=== PATIENT | female | born 1965 | race Caucasian/White ===

== ENCOUNTER → 2024-01-01 08:43 | Outpatient (BNVA) | payer MEDICARE, MEDICAID, SELFPAY | PROVIDERS: PCP Physician Assistant Medical; Visit Provider Surgery ==

== ENCOUNTER 2024-01-18 08:12 | Outpatient (AMB) | payer MEDICARE, MEDICAID, SELFPAY ==
--- NOTE | 2024-01-18 14:31 | MHC.OFFVISWM ---
VS Expanded 01/18/24 14:39 Height 5 ft 3.5 in Weight 218 lb BMI 38.0 Body Fat % 47.7 Body Fat Mass 103.8 Fat Free Mass 114 Visceral Fat Rating 14 Body Water % 37 Body Water Mass 80.6 Basal Metabolic Rate/Score 1,609 Intake Visit Reasons: [employer] BMI 38.0 Allergies acetaminophen [From Percocet] Adverse Reaction (Intermediate, Verified 01/18/24 14:31) Vomiting duloxetine [From Cymbalta] Adverse Reaction (Intermediate, Verified 01/18/24 14:31) Gastrointestinal Upset oxycodone [From Percocet] Adverse Reaction (Intermediate, Verified 01/18/24 14:31) Vomiting Medication List - Last Reconciled 01/18/24 by Mike Farfan MD albuterol sulfate 90 mcg/actuation (Ventolin HFA) 1 inh inhalation QID cholecalciferol (vitamin D3) 50 mcg PO DAILY HPI HPI [employer] BMI 38.0: Details: Start time: 2.26pm, End time: 2.58pm ?I spent 27 minutes speaking with the patient on the phone plus an additional 5 minutes reviewing and updating records for a total of 32 minutes HPI Comments Details: Previous weight loss efforts: [employer], Brett Huang Wakes up: 6am, Sleeps: 10pm Breakfast: skips Lunch: 11am (salad with chicken) Dinner: 6pm (chicken, rice, vegetables) Snacks: 8pm (snack) Exercise: Has stationary bike Fluids: Coffee: (1 cup/day with oat milk), tea: none, soda: none, juice: none, ETOH: none PFSH Medical History (Updated 01/18/24 @ 14:49 by Mike Farfan MD) Anxiety DJD (degenerative joint disease) Asthma Sleep apnea treated with continuous positive airway pressure (CPAP) Surgical History (Updated 01/01/24 @ 10:01 by Blanche Oneill CMA) Hx of umbilical hernia repair Hx of rotator cuff surgery Hx of colonoscopy Hx of oral surgery Family History (Updated 01/01/24 @ 10:02 by Blanche Oneill CMA) Mother Breast CA Father FH: prostate cancer Social History (Updated 01/01/24 @ 10:01 by Blanche Oneill CMA) Alcohol intake: never Patient Tobacco Use Status: Never used Tobacco Telehealth Telehealth Telehealth Platform: Telephone Location of provider rendering services: practice address Location of patient: address on file Patient Identification confirmed using: Name, : Yes Telehealth method: voice only Patient verbally consented to treatment: Yes Patient verbally consented to billing insurance company: Yes Patient informed of any privacy concerns related to visit: Yes Minutes spent on Phone/Video with Pt.: 32 Assessment & Plan Assessment & Plan (1) Obesity: Code(s): E66.9 - Obesity, unspecified Category: Medical Qualifiers: Obesity type: due to excess calories Obesity classification: adult class 2 (BMI 35 - 39.9) Serious obesity comorbidity presence: with serious comorbidity Body mass index: BMI 38.0-38.9 Qualified Code(s): E66.01 - Morbid (severe) obesity due to excess calories; Z68.38 - Body mass index [BMI] 38.0-38.9, adult Plan: 1.? Plan for lap sleeve gastrectomy. If diaphragmatic or ventral hernias are present at time of surgery, these will be repaired laparoscopically as well. Risks and complications were discussed in detail including possible conversion to an open procedure, anastomotic leak, bleeding requiring transfusion, small bowel obstruction, , DVT and pulmonary embolism, cardiac, or pulmonary complications, as intermediate designer complications such as anastomotic ulcer, insufficient weight loss and vitamin deficiencies. I emphasized the importance of close follow-up, adherence to instructions and good communication. 2. You will receive a link of our software héctor to generate an individualized nutritional and exercise plan specific for you. Please send me a screenshot of the plans you will generate Meal to include lean meat (beef, fish, pork, turkey, chicken), or french yogurt, or egg whites, or beans with a salad with olive oil and fruits (berries, pears, apples, kiwi). Avoid salt, breads, potatoes, rice, pasta, desserts. ?3. If you choose shakes, each shake would be drunk slowly, like coffee in a period of 2 hours. ?4. If you choose bars, cut each bar in 4 pieces and eat each piece in 30min ?to make each bar last 2 hours. ?5. I emphasized the importance of measuring accurately the food portion and measure it when serving the food in plate ?6. The meal portions include a specific number of forks of meat and salad. You always eat the meat portion but you can replace up to half of salad/vegetables portion with rice, potatoes or pasta, or a fruit ?if you like. The less you do it the better weight loss will be. ?7. One full-size fork is what it can be scooped on the fork without falling aside and not what can be bit with the fork. Use regular forks like those you find in a typical restaurant. ?8.? Please send me weight measurements as soon as possible and then once a week. Always include your diet and exercise plan. 9. The best choice would be to purchase a stationary bike, elliptical or treadmill at home that can track calories. Let me know if you do so I can give you an exercise plan. ?10.?It is important of avoiding and for at least 18 months postoperatively and has been discussed at the infosession. ?11. Goal is to lose at least 1.5-2lbs per week ?12. Goal to lose 10% of your weight before surgery, which is about 22lbs. Ultimate weight goal: 196lbs before surgery 13. Please follow the diet plan exactly without any change. If you don't like something about the plan or you feel hungry you need to communicate with me so I can help you revise the plan. You should not change the plan yourself. 14. To be scheduled for EGD to assess the anatomy of the stomach. The possibility of biopsies was discussed. Patient needs to avoid use of NSAIDs and aspirin for 1 week prior to EGD. Risks of perforation and? bleeding was discussed with the patient. This will be an outpatient procedure with IV sedation. Orders: Orders Complete Blood Count Auto Diff Today E66.9 - Obesity, unspecified, G47.30 - Sleep apnea, unspecified, J45.909 - Unspecified asthma, uncomplicated, Z68.38 - Body mass index [BMI] 38.0-38.9, adult Comprehensive Met. Panel Today E66.9 - Obesity, unspecified, G47.30 - Sleep apnea, unspecified, J45.909 - Unspecified asthma, uncomplicated, Z68.38 - Body mass index [BMI] 38.0-38.9, adult C Reactive Protein Today E66.9 - Obesity, unspecified, G47.30 - Sleep apnea, unspecified, J45.909 - Unspecified asthma, uncomplicated, Z68.38 - Body mass index [BMI] 38.0-38.9, adult Vitamin B1 Today E66.9 - Obesity, unspecified, G47.30 - Sleep apnea, unspecified, J45.909 - Unspecified asthma, uncomplicated, Z68.38 - Body mass index [BMI] 38.0-38.9, adult Vitamin A Today E66.9 - Obesity, unspecified, G47.30 - Sleep apnea, unspecified, J45.909 - Unspecified asthma, uncomplicated, Z68.38 - Body mass index [BMI] 38.0-38.9, adult Ferritin Today E66.9 - Obesity, unspecified, G47.30 - Sleep apnea, unspecified, J45.909 - Unspecified asthma, uncomplicated, Z68.38 - Body mass index [BMI] 38.0-38.9, adult Vitamin D 25-OH Total Today E66.9 - Obesity, unspecified, G47.30 - Sleep apnea, unspecified, J45.909 - Unspecified asthma, uncomplicated, Z68.38 - Body mass index [BMI] 38.0-38.9, adult US abdomen comp w elastography Today E66.9 - Obesity, unspecified, G47.30 - Sleep apnea, unspecified, J45.909 - Unspecified asthma, uncomplicated, Z68.38 - Body mass index [BMI] 38.0-38.9, adult XR chest 2V Today E66.9 - Obesity, unspecified, G47.30 - Sleep apnea, unspecified, J45.909 - Unspecified asthma, uncomplicated, Z68.38 - Body mass index [BMI] 38.0-38.9, adult ECG 12 lead EKG Today E66.9 - Obesity, unspecified, G47.30 - Sleep apnea, unspecified, J45.909 - Unspecified asthma, uncomplicated, Z68.38 - Body mass index [BMI] 38.0-38.9, adult FL upper GI w air Today E66.9 - Obesity, unspecified, G47.30 - Sleep apnea, unspecified, J45.909 - Unspecified asthma, uncomplicated, Z68.38 - Body mass index [BMI] 38.0-38.9, adult Insulin Today E66.9 - Obesity, unspecified, G47.30 - Sleep apnea, unspecified, J45.909 - Unspecified asthma, uncomplicated, Z68.38 - Body mass index [BMI] 38.0-38.9, adult Hemoglobin A1c Today E66.9 - Obesity, unspecified, G47.30 - Sleep apnea, unspecified, J45.909 - Unspecified asthma, uncomplicated, Z68.38 - Body mass index [BMI] 38.0-38.9, adult H Pylori Breath Test Today E66.9 - Obesity, unspecified, G47.30 - Sleep apnea, unspecified, J45.909 - Unspecified asthma, uncomplicated, Z68.38 - Body mass index [BMI] 38.0-38.9, adult Lipid Panel Today E66.9 - Obesity, unspecified, G47.30 - Sleep apnea, unspecified, J45.909 - Unspecified asthma, uncomplicated, Z68.38 - Body mass index [BMI] 38.0-38.9, adult IRON PROFILE Today E66.9 - Obesity, unspecified, G47.30 - Sleep apnea, unspecified, J45.909 - Unspecified asthma, uncomplicated, Z68.38 - Body mass index [BMI] 38.0-38.9, adult Vitamin B12 and Folate Today E66.9 - Obesity, unspecified, G47.30 - Sleep apnea, unspecified, J45.909 - Unspecified asthma, uncomplicated, Z68.38 - Body mass index [BMI] 38.0-38.9, adult Zinc Today E66.9 - Obesity, unspecified, G47.30 - Sleep apnea, unspecified, J45.909 - Unspecified asthma, uncomplicated, Z68.38 - Body mass index [BMI] 38.0-38.9, adult TSH reflex Free T4 Today E66.9 - Obesity, unspecified, G47.30 - Sleep apnea, unspecified, J45.909 - Unspecified asthma, uncomplicated, Z68.38 - Body mass index [BMI] 38.0-38.9, adult Referrals Nutrition/Dietitian Referral E66.9 - Obesity, unspecified, G47.30 - Sleep apnea, unspecified, J45.909 - Unspecified asthma, uncomplicated, Z68.38 - Body mass index [BMI] 38.0-38.9, adult Behavioral Health Referral E66.9 - Obesity, unspecified, G47.30 - Sleep apnea, unspecified, J45.909 - Unspecified asthma, uncomplicated, Z68.38 - Body mass index [BMI] 38.0-38.9, adult
[2024-01-18 14:39] VITALS: BMI 38.0
== END 2024-01-18 14:58 | disposition home or self-care (01) ==
LOC: HO.HBS 08:12
PROVIDERS: PCP Physician Assistant Medical; Visit Provider Surgery
DX: E66.01 Morbid (severe) obesity due to excess calories (principal); Z68.38 Body mass index [BMI] 38.0-38.9, adult
CPT/HCPCS: 99443

== ENCOUNTER → 2024-01-18 08:12 | Outpatient (BNVA) | payer MEDICARE, MEDICAID, SELFPAY | PROVIDERS: PCP Physician Assistant Medical; Visit Provider Surgery ==

== ENCOUNTER 2024-01-19 07:48 | Outpatient (REF) | payer MEDICARE, MEDICAID, SELFPAY ==
--- NOTE | ~2024-01-19 | XR_ITS ---
EXAMINATION: XR CHEST CLINICAL INFORMATION: Obesity, unspecified COMPARISON: None available. TECHNIQUE: 2 views of the chest were obtained. FINDINGS: The lungs are well expanded. No focal consolidation, interstitial pulmonary edema or pneumothorax. Heart size is normal. Calcification of the thoracic aorta is indicative of atherosclerotic disease. No pleural effusion. Mild multilevel degenerative changes of the thoracic spine. There is a small air-filled hiatal hernia. XR/XR chest 2V IMPRESSION: No acute abnormality. Small hiatal hernia.
--- NOTE | 2024-01-19 08:02 | ECG_ITS ---
Test Reason : e66.01 Blood Pressure : / mmHG Vent. Rate : 073 BPM Atrial Rate : 073 BPM P-R Int : 122 ms QRS Dur : 070 ms QT Int : 390 ms P-R-T Axes : 040 013 029 degrees QTc Int : 429 ms Normal sinus rhythm Low voltage QRS Borderline ECG No previous ECGs available Referred By: Mike Farfan Electronically Signed By:NAILA MELCHOR MD
[2024-01-19 08:09] LABS: MANUAL DIFF FLAG NO
[2024-01-19 09:04] LABS: Basophils Absolute Auto 0.1 X10*3/uL (0.0-0.2); Basophils Percent Auto 0.6 % (0-2); Eosinophils Absolute Auto 0.1 X10*3/uL (0.0-0.4); Eosinophils Percent Auto 0.7 % (0-4); Hemoglobin 14.3 g/dl (12.0-16.0); Imm Gran Abs Auto 0.03 X10*3/uL (0.00-0.03); Imm Gran Pct Auto 0.4 % (0.0-0.4); Lymphocytes Percent Auto 35.9 % (20-40); Mean Corpuscular HGB Conc 32.5 g/dl (31.0-35.0); Mean Corpuscular Hemoglobin 28.9 pg (27.0-33.0); Mean Corpuscular Volume 89.1 fL (80.0-98.0); Mean Platelet Volume 10.5 fL (9.4-12.3); Monocytes Absolute Auto 0.4 X10*3/uL (0.1-1.2); Neutrophils Absolute Auto 4.9 x10*3/uL (2.0-8.3); Neutrophils Percent Auto 57.4 % (45-73); Platelet Count 301 X10*3/uL (160-400); Red Blood Count 4.94 X10*6/uL (4.20-5.50); White Blood Count 8.5 X10*3/uL (4.8-10.8)
[2024-01-19 09:05] LABS: Estimated Average Glucose 111 mg/dL; Hemoglobin A1c % 5.5 % (<6.0)
[2024-01-19 09:46] LABS: Alanine Aminotransferase 14 U/L (0-31); Albumin Level 4.3 g/dL (3.5-5.0); Alkaline Phosphatase 67 U/L (39-117); Anion Gap 16 (12-20); Aspartate Amino Transferase 15 U/L (5-31); Bilirubin Total 0.4 mg/dL (0.0-1.0); Blood Urea Nitrogen 16 mg/dL (9-16); C Reactive Protein 1.34 mg/dL (< or = 0.50); Calcium 9.9 mg/dL (8.4-10.2); Carbon Dioxide 27 mmol/L (22-29); Chloride 105 mmol/L (96-108); Cholesterol 241 mg/dL (<200); Estimated Glomerular Filt Rate > 60; Glucose Random 92 mg/dL (60-115); HDL Cholesterol 54 mg/dL (>40); Iron 72 mcg/dL (30-160); LDL Cholesterol Calculated 166 mg/dL (<100); Percent Iron Saturation 25 % (15-50); Potassium 4.1 mmol/L (3.3-5.1); Sodium 144 mmol/L (135-145); Total Iron Binding Capacity 284 mcg/dL (228-428); Total Protein 7.5 g/dL (6.5-8.0); Triglycerides 109 mg/dL (<150); Unsaturated Iron Binding 212 ug/dL
[2024-01-19 10:09] LABS: Ferritin 146 ng/mL (10-250); TSH reflex Free T4 2.46 uIU/mL (0.32-4.0); Vitamin D 25-OH Total 39.2 ng/mL (>30)
[2024-01-19 10:53] LABS: Insulin 10 uU/mL (2-29)
[2024-01-19 10:58] LABS: Folate 5.4 ng/mL (> or = 4.0); Vitamin B12 329 pg/mL (200-900)
[2024-01-23 01:04] LABS: Zinc 76 mcg/dL (60-130)
[2024-01-24 05:28] LABS: Vitamin A 34 mcg/dL (38-98)
[2024-01-26 06:25] LABS: Vitamin B1 29 nmol/L (8-30)
== END 2024-01-19 07:49 | disposition home or self-care (01) ==
LOC: HO.XRAY 07:48
PROVIDERS: PCP Surgery; Visit Provider Surgery
DX: E66.9 Obesity, unspecified (principal); Z68.38 Body mass index [BMI] 38.0-38.9, adult; G47.30 Sleep apnea, unspecified; J45.909 Unspecified asthma, uncomplicated
CPT/HCPCS: 36415; 71046; 80053; 80061; 82306; 82607; 82728; 82746; 83036; 83525; 83540; 84425; 84443; 84590; 84630; 85025; 86140; 93005

== ENCOUNTER → 2024-01-19 08:02 | Outpatient (BNV) | payer MEDICARE, MEDICAID, SELFPAY | PROVIDERS: PCP Surgery; Visit Provider Internal Medicine Cardiovascular Disease | DX: E66.01 Morbid (severe) obesity due to excess calories (principal) | CPT/HCPCS: 93010 ==

== ENCOUNTER 2024-02-07 07:50 | Outpatient (REF) | payer MEDICARE, MEDICAID, SELFPAY ==
--- NOTE | ~2024-02-07 | US_ITS ---
EXAMINATION: US COMPLETE ABDOMEN WITH LIVER ELASTOGRAPHY CLINICAL INFORMATION: COMPARISON: None available. TECHNIQUE: Real-time imaging of the abdominal viscera. Noninvasive ultrasound liver fibrosis assessment is performed using [employer] ElastPQ point quantification shear wave elastography (2D-SWE) with a C5-2 MHz transducer. Multiple elastography samples are obtained. FINDINGS: PANCREAS: Normal. The visualized pancreatic head and body are normal in appearance. The remainder of the pancreas is obscured from visualization by the overlying bowel gas. ABDOMINAL AORTA: The proximal, middle, and distal aortic segments are normal in caliber. INFERIOR VENA CAVA: Visualized portions are normal. LIVER: The liver demonstrates normal size, contour and increased echogenicity. No focal lesion or intrahepatic biliary duct dilatation. The right lobe measures 15.1 cm in length. The left lobe measures 9.6 cm in length. Portal flow is towards the liver (hepatopetal). Shear wave liver elastography median stiffness is 1.3 m/s (reference: normal median stiffness is 1.3 m/s or less). IQR/median stiffness to assess sampling precision is 0.14 (reference: good quality data set is IQR/median stiffness of 0.15 or less). GALLBLADDER: Normal. The gallbladder is physiologically distended without evidence of stones, sludge, polyps, wall thickening or pericholecystic fluid. COMMON BILE DUCT: Normal in caliber measuring 0.5 cm in diameter. RIGHT KIDNEY: Normal. No hydronephrosis. No renal calculi or focal parenchymal lesions. The kidney measures 10.4 cm in maximum dimension. LEFT KIDNEY: Normal. No hydronephrosis. No renal calculi or focal parenchymal lesions. The kidney measures 12.4 cm in maximum dimension. SPLEEN: Normal. The spleen measures 10.6 cm in maximum dimension. FREE FLUID: None. US/US abdomen comp w elastography IMPRESSION: 1. There is generalized increase in hepatic echotexture, consistent with fatty infiltration or hepatocellular disease. Please correlate clinically. No focal hepatic mass or intrahepatic biliary dilatation is seen. 2. Liver elastography: In the absence of other known clinical signs, measurements rule out compensated advanced chronic liver disease. If there are known clinical signs, further testing may be needed for confirmation. REFERENCE: Society of Radiologists in Ultrasound Liver Stiffness Thresholds (2020): LIVER STIFFNESS THRESHOLDS: *Liver Stiffness equal or less than 1.3 m/s: High probability of being normal. *Liver Stiffness less than 1.7 m/s: In the absence of other known clinical signs, rules out compensated advanced chronic liver disease. *Liver Stiffness 1.7-2.1 m/s: Suggestive of compensated advanced chronic liver disease but need further test for confirmation. *Liver Stiffness over 2.1 m/s: Rules in compensated advanced chronic liver disease. *Liver Stiffness over 2.4 m/s: Suggestive of clinically significant portal hypertension. QUALITY OF DATA SET: *IQR/Median value equal or less than 0.15 implies a quality data set. *IQR/Median value over 0.15 implies a poor quality data set. SIGNIFICANT CHANGE FROM PRIOR EXAM: Significant change if liver stiffness measurement is 10% or greater from prior exam. OTHER CONSIDERATIONS: The stage of liver fibrosis may be overestimated in the setting of acute hepatitis, liver inflammation, elevated liver function tests, hepatic vascular congestion, obstructive cholestasis, non-fasting state, and infiltrative diseases such as amyloidosis and lymphoma. In some patients with NAFLD, the liver stiffness thresholds for compensated advanced chronic liver disease may be lower. In causes other than viral hepatitis and NAFLD, liver stiffness thresholds are not well established.
== END 2024-02-07 07:51 | disposition home or self-care (01) ==
LOC: HO.US 07:50
PROVIDERS: Visit Provider Surgery
DX: E66.9 Obesity, unspecified (principal); Z68.38 Body mass index [BMI] 38.0-38.9, adult; J45.909 Unspecified asthma, uncomplicated; G47.30 Sleep apnea, unspecified
CPT/HCPCS: 76700; 76981

== ENCOUNTER 2024-02-13 09:38 | Outpatient (AMB) | payer MEDICARE, MEDICAID, SELFPAY ==
--- NOTE | 2024-02-13 09:32 | MHC.WMTHER ---
Intake Intake Visit Reasons: TV BH Intake Allergies acetaminophen [From Percocet] Adverse Reaction (Intermediate, Verified 01/18/24 14:31) Vomiting duloxetine [From Cymbalta] Adverse Reaction (Intermediate, Verified 01/18/24 14:31) Gastrointestinal Upset oxycodone [From Percocet] Adverse Reaction (Intermediate, Verified 01/18/24 14:31) Vomiting PFSH Medical History (Updated 01/26/24 @ 21:05 by Mike Farfan MD) Anxiety DJD (degenerative joint disease) Asthma Sleep apnea treated with continuous positive airway pressure (CPAP) Surgical History (Updated 01/01/24 @ 10:01 by Blanche Oneill CMA) Hx of umbilical hernia repair Hx of rotator cuff surgery Hx of colonoscopy Hx of oral surgery Family History (Updated 01/01/24 @ 10:02 by Blanche Oneill CMA) Mother Breast CA Father FH: prostate cancer Social History (Updated 01/01/24 @ 10:01 by Blanche Oneill CMA) Alcohol intake: never Patient Tobacco Use Status: Never used Tobacco Behavioral Health Assessment Weight Management Therapy Therapy Notes Details Patient is looking to have weight loss surgery to help improve her health and quality of life. She is worried about her sleep apnea and other health issues. 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 She reported having a therapist in the past however when she got on disability, her insurance changed and she lost her provider. Pt is currently in the process of getting back into therapy due to past trauma. No history of problems with drugs or alcohol, no history of previous inpatient psychiatric admissions. Presenting Concerns Referral Source provider Reason for referral weight loss surgery evaluation Precipitating Event obesity Living Situation Current Living Situation Own and Relative's/Guardian's Milli At risk of losing current housing? No Satisfied with current living situation? Yes Comments Pt lives with her disabled son who is 19 years old and her older sister who also has medical issues. Food/Weight/Diet Expectations of change weight loss and maintenance History/Relationship with food Pt stated that she would go all day with no food and then be starving and overeat or eat whatever she can. She stated that she would often go for sweets, also eats very fast which she learned to do as a child when trying to get away from her mother at the dinner table as quick as she could. Loves potatoes, pasta, and other carbs, fast food, [employer], burger Gavin, anything she had in the house. History/Relationship with weight Pt stated that she has been struggling with her weight for the past 30 years or so, since having children, was never able to get back down to her healthy weight. History/Relationship with dieting Brett T[facility]well in the past, lost 14lbs before coming to the program on her own. Binge Eating Do you frequently eat large amounts of food in short periods of time, not feeling physically hungry? No Do you feel out of control when you eat a large amount of food in a short period of time? No Do you eat large amounts of food rapidly and typically alone? Yes Night Eating Do you wake up at least once during the night to eat? No If you wake up in the night, do you find that it is necessary to eat something in order to fall back asleep? No Do you have little or no appetite in the morning and feel very hungry in the evening, often overeating between dinner and when you go to bed? Yes Social History Family history and relationship Pt has 5 adult children and is twice . Her youngest son lives with her due to disability. She stopped working about two years ago. She has grandchildren and one great grand child. She reported growing up with a bad mother , she had a difficult childhood. Mother in 2015 from heart problems during surgery. Her father in 2018 from Dementia. 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 Her sister has early dementia symptoms whom she lives with. She is one of three girls. 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 She is looking to get him into shared living. Developmental history and status no issues Social support adult children who all keep in close contact, group of friends Methodist/Spirituality spiritual [place] in [employer] Cultural/Ethnic information Legal Involvement and History Current or historical involvement with the legal system? none Education Highest grade completed high school diploma Preferred learning style Auditory, Verbal, Written, Learn by doing and Visual Currently enrolled in educational program? No Interested in further educational program? 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 Employment Employment Status Other Wants help to find employment? No Meaningful activities loves to craft, cake decorating, wreathes, knitting, making blankets Financial Situation Describe current financial situation Occasional struggle Financial assistance? SSDI Service Service? No Mental Health and Addiction Treatment Current/Past substance abuse? No Current/Past addictive behavior concerns? No Medical and Physical Health Summary Physical exam in the last year? Yes Pain Screening Current pain? No Pain in the last few months? No Medications Is the patient compliant with medications? Yes Does the patient have Srivastava Guardian in place? Not applicable Does the patient use complimentary health approaches? No Trauma/Abuse History History of trauma? Yes Questionnaires Binge Eating Scale Group 1 A. I don't feel self-conscious about my wt. or body size when I'm with others. B. I feel concerned about how I look to others, but it normally does not make me fell disappointed with myself C. I do get self-conscious about my appearance and wt. which makes me feel disappointed in myself. D. I feel very self-conscious about my wt. and frequently I feel intense shame and disgust for myself. I try to avoid social contacts because of my self-consciousness. Response Group 1: B Group 2 A. I don't have any difficulty eating slowly in the proper manner. B. Although I seem to gobble down foods, I don't end up feeling stuffed because of eating to much. C. At times, I tend to eat quickly and then, I feel uncomfortably full afterwards. D. I have the habit of bolting down my food, without really chewing it. When this happens I usually feel uncomfortably stuffed because I've eaten to much. Response Group 2: B Group 3 A. I feel capable to control my eating urges when I want to. B. I feel like I have failed to control my eating more than the average person. C. I feel utterly helpless when it comes to feeling in control of my eating urges. D. Because I feel so helpless about controlling my eating I have become very desperate about trying to get control. Response Group 3: B Group 4 A. I don't have the habit of eating when I'm bored. B. I sometimes eat when I'm bored, but often I'm able to get busy and get my mind off food. C. I have a regular habit of eating when I'm bored, but occasionally, I can use some other activity to get my mind off eating. D. I have a strong habit of eating when I'm bored. Nothing seems to help me breath the habit. Response Group 4: A Group 5 A. I'm usually physically hungry when I eat something. B. Occasionally, I eat something on impulse even though I really am not hungry. C. I have the regular habit of eating foods, that I might not really enjoy, to satisfy a hungry feeling even though physically, I don't need the food. D. Although I'm not physically hungry, I get a hungry feeling in my mouth that only seems to be satisfied when I eat a food, like sandwich, that fills my mouth. Sometimes, when I eat the food to satisfy my mouth hunger, I then spit the food out so I won't gain weight. Response Group 5: B Group 6 A. I don't feel any guilt or self-hate after I overeat. B. After I overeat, occasionally I feel guilt or self-hate. C. Almost all the time I experience strong guilt or self-hate after I overeat. Response Group 6: B Group 7 A. I don't lose total control of my eating when dieting even after periods when I overeat. B. Sometimes when I eat a forbidden food on a diet, I feel like I blew it and eat even more. C. Frequently, I have the habit of saying to myself, I've blown it now, why not go all the way, when I overeat on a diet. When that happens I eat more. D. I have a regular habit of starting a strict diets for myself but I break the diets by going on an eating binge. My life seems to be either a feast or famine. Response Group 7: B Group 8 A. I rarely eat so much food that I feel uncomfortably stuffed afterwards. B. Usually about once a month, I each such a quantity of food, I end up feeling very stuffed. C. I have regular periods during the month when I eat large amounts of food, either at mealtime or at snacks. D. I eat so much food that I regularly feel quite uncomfortable after eating and sometimes a bit nauseous. Response Group 8: A Group 9 A. My level of calorie intake does not go up very high or go down very low on a regular basis. B. Sometimes after I overeat, I will try to reduce my caloric intake to almost nothing to compensate for the excess calories I've eaten. C. I have a regular habit of overeating during the night. It seems that my routine is not to be hungry in the morning but overeat in the evening. D. In my adult years, I have had week-long periods where I practically starve myself. This follows periods when I overeat. It seems I live a life of either feast or famine. Response Group 9: A Group 10 A. I usually am able to stop eating when I want to. I know when enough is enough. B. Every so often, I experience a compulsion to eat which I can't seem to control. C. Frequently, I experience strong urges to eat which I seem unable to control, but at other times I can control my eating urges. D. I feel incapable of controlling urges to eat. I have a fear of not being able to stop eating voluntarily. Response Group 10: B Group 11 A. I don't have any problem stopping eating when I feel full. B. I usually can stop eating when I feel full but occasionally overeat leaving me feeling uncomfortably stuffed. C. I have a problem stopping eating once I start and usually I feel uncomfortably stuffed after I eat a meal. D. Because I have a problem not being able to stop eating when I want, I sometimes have to induce vomiting to relieve my stuffed feeling. Response Group 11: A Group 12 A. I seem to eat just as much when I'm with others, Family social gatherings as when I'm by myself. B. Sometimes, when I'm with other persons, I don't eat as much as I want to eat because I'm self-conscious about my eating. C. Frequently, I eat only a small amount of food when others are present, because I'm very embarrassed about my eating. D. I feel so ashamed about overeating that I pick times to overeat when I know no one will see me. I feel like a closet eater. Response Group 12: B Group 13 A. I eat three meals a day with only an occasional between meal snack. B. I eat 3 meals a day, but I also normally snack between meals. C. When I am snacking heavily, I get in the habit of skipping regular meals. D. There are regular periods when I seem to be continually eating, with no planned meals. Response Group 13: A Group 14 A. I don't think much about trying to control unwanted eating urges. B. At least some of the time, I feel my thoughts are pre-occupied with trying to control my eating urges. C. I feel that frequently I spend much time thinking about how much I ate or about trying not to eat anymore. D. It seems to me that most of my waking hours are pre-occupied by thoughts about eating or not eating. I feel like I'm constantly struggling not to eat. Response Group 14: B Group 15 A. I don't think about food a great deal. B. I have strong craving for food but they last only for brief periods of time. C. I have days when I can't seem to think about anything else but food. D. Most of my days seem to be pre-occupied with thoughts about food. I feel like I live to eat. Response Group 15: A Group 16 A. I usually know whether or not I'm physically hungry. I take the right portion of food to satisfy me. B. Occasionally, I feel uncertain about knowing whether or not I'm physically hungry. A these times it's hard to know how much food I should take to satisfy me. C. Even though I might know how many calories I should eat, I don't have any idea what is a normal amount of food for me. Response Group 16: A Binge Eating Score: 9 Score less than 17 Minimal Risk Score between 18-26 Moderate Risk Score between 27-46 High Risk Assessment & Plan Assessment & Plan (1) Anxiety: Code(s): F41.9 - Anxiety disorder, unspecified (2) Sleep apnea treated with continuous positive airway pressure (CPAP): Code(s): G47.30 - Sleep apnea, unspecified (3) BMI 38.0-38.9,adult: Code(s): Z68.38 - Body mass index [BMI] 38.0-38.9, adult (4) DJD (degenerative joint disease): Code(s): M19.90 - Unspecified osteoarthritis, unspecified site Plan Patient has no major mental health concerns and no disordered eating. She should re connect with her therapist. Pt is cleared for surgery when ready. Telehealth Telehealth Telehealth Platform: Telephone Location of provider rendering services: other Location of patient: address on file Patient Identification confirmed using: Name, : Yes Telehealth method: voice only Patient verbally consented to treatment: Yes Patient verbally consented to billing insurance company: Yes Patient informed of any privacy concerns related to visit: Yes Minutes spent on Phone/Video with Pt.: 45 Coding Level of Care Code Tele Psy Diag Eval (36913) Diagnoses Anxiety F41.9 Sleep apnea treated with continuous positive airway pressure (CPAP) G47.30 BMI 38.0-38.9,adult Z68.38 DJD (degenerative joint disease) M19.90 Time Spent (min) 45
== END 2024-02-13 10:09 | disposition home or self-care (01) ==
LOC: HO.HBST 09:38
PROVIDERS: Visit Provider Counselor Mental Health
DX: F41.9 Anxiety disorder, unspecified (principal); G47.30 Sleep apnea, unspecified; Z68.38 Body mass index [BMI] 38.0-38.9, adult; M19.90 Unspecified osteoarthritis, unspecified site
CPT/HCPCS: 90791

== ENCOUNTER → 2024-02-13 09:38 | Outpatient (BNVA) | payer MEDICARE, MEDICAID, SELFPAY | PROVIDERS: Visit Provider Counselor Mental Health ==

== ENCOUNTER 2024-02-14 10:45 | Day surgery (SDC) | payer MEDICARE, MEDICAID, SELFPAY ==
[2024-02-14 11:35] VITALS: BMI 35.8
[2024-02-14 11:38] VITALS: BP 134/87; PULSE 84; RESP 16; TEMP 37; O2SAT 98
--- NOTE | 2024-02-14 13:17 | P.CONAN_ITS ---
[facility] [place] Active Problems Active Problems: All Active Problems Vitamin B12 deficiency (Acute) Vitamin A deficiency (Acute) Anxiety (Acute) DJD (degenerative joint disease) (Acute) Asthma (Acute) Sleep apnea treated with continuous positive airway pressure (CPAP) (Acute) BMI 38.0-38.9,adult (Acute) Obesity (Acute) Past Medical History Medical History (Updated 01/26/24 @ 21:05 by Mike Farfan MD) Anxiety DJD (degenerative joint disease) Asthma Sleep apnea treated with continuous positive airway pressure (CPAP) Family History Family History (Updated 01/01/24 @ 10:02 by Blanche Oneill CMA) Mother Breast CA Father FH: prostate cancer Family history of problems with anesthesia: No Surgical History Surgical History (Updated 01/01/24 @ 10:01 by Blanche Oneill CMA) Hx of umbilical hernia repair Hx of rotator cuff surgery Hx of colonoscopy Hx of oral surgery History of Problems with Anesthesia: No Social History Social History (Updated 01/01/24 @ 10:01 by Blanche Oneill CMA) Alcohol intake: never Patient Tobacco Use Status: Never used Tobacco Use of substances other than those prescribed or required for medical reasons: No Are you DNR?: No Advance Directives: No Advance Directives Information Provided: Yes Meds Allergies Allergy/AdvReac Type Severity Reaction Status Date / Time acetaminophen [From Percocet] AdvReac Intermediate Vomiting Verified 02/14/24 11:36 duloxetine [From Cymbalta] AdvReac Intermediate Gastrointestinal Verified 02/13 11:36 Upset oxycodone [From Percocet] AdvReac Intermediate Vomiting Verified 02/14/24 11:36 Home Medications ?Medication ?Instructions ?Recorded ?Confirmed ?Last Taken ?Type albuterol sulfate 90 mcg/actuation 1 inh inhalation QID 01/01/24 02/14/24 Unknown History aerosol inhaler (Ventolin HFA) Exam Height,Weight and Vital Signs: Height 5 ft 4 in Weight 94.619 kg Last Vital Signs Temp 98.6 F 02/14/24 11:38 Pulse 84 02/14/24 11:38 Resp 16 02/14/24 11:38 BP 134/87 02/14/24 11:38 Pulse Ox 98 02/14/24 11:38 O2 Del Method Room Air 02/14/24 11:38 Airway Mallampati Class: II TM Dist: >3cm Neck ROM: Full Partial: Upper and Lower Heart: rrr Lungs: cta Assessment and Plan Assessment Anesthesia Assessment: Anesthesia Plan Discussed and Chart Reviewed Final Anesthetic Review Family History of Problems with Anesthesia: No History of Problems with Anesthesia: No NPO: Yes ASA Class: II Final Preanesthetic Review: No Changes in Pt Med Stat, Meds/Allgs Chart Reviewed and Consent Obtained/Reviewed Patient Risk: Intermediate Procedure Risk: Intermediate Anesthetic Plan Anesthetic Plan: MAC: Disposition: Standard PACU
--- NOTE | 2024-02-14 13:27 | MHC.SHP ---
Pre-Procedural Eval Section A - 24 Hr Update-Section A only Date of Service: 02/14/24 The patient is an INPATIENT: No Section B - Complete if H&P > 30 days Chief Complaint: Morbid (severe) obesity due to excess calories Relevant Family History (Specify if Yes): No Relevant Social History: None Present Medications: None Medical History: No relevant PMH History of Previous Operations: No relevant previous surgery Allergies: Allergies Allergy/AdvReac Type Severity Reaction Status Date / Time acetaminophen [From Percocet] AdvReac Intermediate Vomiting Verified 02/14/24 11:36 duloxetine [From Cymbalta] AdvReac Intermediate Gastrointestinal Verified 02/14/24 11:36 Upset oxycodone [From Percocet] AdvReac Intermediate Vomiting Verified 02/14/24 11:36 Review of Systems Sugical H&P ROS: Negative: Constitution, Cardiovascular, Respiratory, Neurological, Psychiatric, Hem-Onc, Allergic/Immunologic, Gastrointestinal, Genitourinary, Musculoskeletal, Integumentary, Endocrine and Eyes/Ears/Nose/Throat Exam Surgical H&P Exam: Normal: HEENT, Normal: Heart, Normal: Lungs, Normal: Extremities, Normal: Abdomen, Normal: Skin and Normal: Neurological Plan Diagnosis/Plan: Unchanged (EGD to assess the anatomy of the stomach. Risks of bleeding and perforation were discussed with the patient and she is in agreement with the plan.) I have reviewed the history and physical and performed a pertinent physical examination on my patient. No changes have occurred unless specified. Time Spent With Patient Time: Total time managing care of this patient today ____ minutes.
--- NOTE | 2024-02-14 13:31 | P.BOP_ITS ---
Brief Operative Note Date of Service: 02/14/24 Pre-op diagnosis: Morbid obesity Post-op diagnosis: same Procedure: PROCEDURE DATE: 02/14/2024 PREOPERATIVE DIAGNOSIS: GERD POSTOPERATIVE DIAGNOSIS: ?Same as above. 1) normal endoscopy PROCEDURE: [id number] with biopsies Surgeon: Jefferson Farfan M.D.. Ph.D. Retail Wireless Sales Representative: None ? Anesthesia: IV sedation Estimated blood loss: ?Minimal FINDINGS AND PROCEDURE: ? OPERATIVE INDICATIONS: ?The patient is a 58 year old female known to me who is interested in bariatric surgery. Based on this information I recommended an upper endoscopy to evaluate the anatomy of the stomach. Risks and complications of the surgery were discussed with the patient in advance particularly the possibility of perforation or bleeding that may require surgical intervention. The patient understood the risks and was in agreement with the plan. ? PROCEDURE: After informed consent was obtained by the patient, the patient was ?transferred to the Operating Room and was placed in the supine position.? After successful induction of IV sedation, a mouth block was inserted and the patient was placed in the left lateral decubitus position. An upper endoscopy was performed next, the oropharynx and esophagus appeared within the normal limits. There was no hiatal hernia. The z-line was smooth. Two biopsies were obtained from the distal esophagus 2-3 cm proximal to the GE junction and two additional biopsies from the GE junction. The stomach was entered and it appeared to be of normal size. There was no gastritis. There was no stricture or ulcer. A biopsy was obtained from the gastric fundus and the antrum. No significant bleeding was noted from any of the biopsy sites. Retroflexion of the scope revealed a normal GE junction. The scope was then advanced into the duodenum which appeared to be normal as well. At that point the duodenum ?and the stomach were decompressed and the scope was withdrawn from the patient's mouth. The patient extubated and was transferred in stable condition to the Recovery Room for further care. I was present and performed all steps of the procedure. There were no residents to assist with this case. Hermes Farfan M.D., Ph.D. Surgeon: Mike Farfan MD Anesthesia: MAC Was an Retail Wireless Sales Representative used for this Procedure?: No Estimated blood loss (mL): 0 IV fluids (mL): 400 Urine output (mL): 0 (No Angela to record output) Pathology: other (1) antrum x1, 2) fundus x1, 3) GE junction x2, 4) distal esophagus x2) Condition: stable Disposition: PACU
[2024-02-14 13:59] VITALS: BP 131/88; PULSE 82; RESP 16; TEMP 37.1; O2SAT 97
[2024-02-14 14:14] VITALS: BP 123/83; PULSE 84; RESP 16; TEMP 36.8; O2SAT 99
== END 2024-02-14 14:57 | disposition home or self-care (01) ==
PROVIDERS: Visit Provider Surgery
PROC: 0DJ08ZZ Inspection of Upper Intestinal Tract, Via Natural or Artificial Opening Endoscopic (ICD-10-PCS; CPT 43235; principal; 2024-02-14 13:10)
DX: K21.9 Gastro-esophageal reflux disease without esophagitis (principal); E66.01 Morbid (severe) obesity due to excess calories; Z68.38 Body mass index [BMI] 38.0-38.9, adult; F41.9 Anxiety disorder, unspecified; G47.30 Sleep apnea, unspecified; J45.909 Unspecified asthma, uncomplicated; M19.90 Unspecified osteoarthritis, unspecified site; Z79.899 Other long term (current) drug therapy; Z99.89 Dependence on other enabling machines and devices; Z88.5 Allergy status to narcotic agent; Z88.8 Allergy status to other drugs, medicaments and biological substances; Z98.890 Other specified postprocedural states
CPT/HCPCS: 43239; 88305; 88313; 88342; J2704

== ENCOUNTER → 2024-02-14 10:45 | Outpatient (BNV) | payer MEDICARE, MEDICAID, SELFPAY | PROVIDERS: Visit Provider Surgery | DX: K21.9 Gastro-esophageal reflux disease without esophagitis (principal) | CPT/HCPCS: 43239 ==

== ENCOUNTER 2024-03-26 08:41 | Outpatient (REF) | payer MEDICARE, MEDICAID, SELFPAY ==
--- NOTE | ~2024-03-26 | FL_ITS ---
EXAMINATION: XR FLUOROSCOPY UPPER GI WITH AIR CLINICAL INFORMATION: Preop evaluation prior to bariatric surgery COMPARISON: None TECHNIQUE: Fluoroscopic air contrast upper GI examination was performed utilizing standard techniques with thin and thick barium and effervescent granules. Numerous spot images were obtained. FINDINGS: Dual and single contrast images of the esophagus demonstrate normal caliber, contour, and mucosal pattern. Mild cricopharyngeal achalasia is present. No evidence of stricture, mass, or ulcerations identified. Esophageal peristalsis is mildly disorganized. There is a small type I hiatus hernia. Gastroesophageal reflux is seen up to the level of aortic arch. Dual contrast and single contrast images of the stomach demonstrated normal contour and mucosal pattern without evidence of mass, ulceration, or other abnormality. Contrast freely passed into the gastric antrum and duodenal bulb without delay. Single and air-contrast images of the duodenal bulb demonstrate no abnormality. The duodenal sweep has a normal appearance, course, and mucosal fold appearance. The imaged proximal jejunum has a normal fold pattern and caliber. FLUOROSCOPY TIME: 3 minutes 13 seconds Number of Spot Images: 8 Number of Cine: 14 DOSE AREA PRODUCT: 1985 uGy-m2 (microgray-meter squared) FL/FL upper GI w air IMPRESSION: 1. Mild cricopharyngeal achalasia. 2. Mildly disorganized esophageal peristalsis. 3. Small type I hiatus hernia. 4. Moderate gastroesophageal reflux This procedure was performed by Thomas Calles PA-C, and supervised by Dr. Valdivia
== END 2024-03-26 08:42 | disposition home or self-care (01) ==
LOC: HO.XRAY 08:41
PROVIDERS: Visit Provider Surgery
DX: K21.9 Gastro-esophageal reflux disease without esophagitis (principal); E66.9 Obesity, unspecified; Z68.38 Body mass index [BMI] 38.0-38.9, adult; G47.30 Sleep apnea, unspecified; J45.909 Unspecified asthma, uncomplicated
CPT/HCPCS: 74246

== ENCOUNTER → 2024-03-26 08:42 | Outpatient (BNV) | payer MEDICARE, MEDICAID, SELFPAY | PROVIDERS: Visit Provider Physician Assistant Surgical | DX: E66.9 Obesity, unspecified (principal); Z01.818 Encounter for other preprocedural examination | CPT/HCPCS: 74246 ==

== ENCOUNTER 2024-04-01 08:07 | Outpatient (AMB) | payer MEDICARE, MEDICAID, SELFPAY ==
--- NOTE | 2024-04-01 12:34 | A.OFFVIS_ITS ---
Intake Visit Reasons: TV Pre Op LSG 04/10/24 Allergies duloxetine [From Cymbalta] Adverse Reaction (Intermediate, Verified 04/01/24 12:34) Gastrointestinal Upset oxycodone [From Percocet] Adverse Reaction (Intermediate, Verified 04/01/24 12:34) Vomiting Medication List - Last Reconciled 04/01/24 by Mike Farfan MD albuterol sulfate 90 mcg/actuation (Ventolin HFA) 1 inh inhalation QID cholecalciferol (vitamin D3) (Vitamin D3) 25 mcg PO DAILY mecobalamin (vitamin B12) 1,000 mcg sublingual DAILY ondansetron 4 mg PO Q12H pantoprazole 40 mg PO DAILY polyethylene glycol 3350 17 grams PO DAILY sucralfate 10 mL PO BID vitamin A palmitate 10,000 units PO DAILY HPI HPI TV Pre Op LSG 04/10/24: Details: Start time: 12.25pm, End time: 12.50pm ?I spent 20 minutes speaking with the patient on the phone plus an additional 5 minutes reviewing and updating records for a total of 25 minutes HPI Comments Details: Overall weight loss: 19.2lbs, or 8.81% TBWL Is doing 4 half size Pure protein bars and one meal (7 forks of meat and 7 forks of salad or vegetables) Exercise: stationary bike for 300 calories daily PFSH Medical History (Updated 03/28/24 @ 12:19 by Janette Rivera RN) Fatty liver Vocal cord dysfunction Unilateral vocal cord paralysis DJD (degenerative joint disease) Arthritis Back pain Seasonal depression Anxiety DJD (degenerative joint disease) Asthma Sleep apnea treated with continuous positive airway pressure (CPAP) Surgical History (Updated 03/28/24 @ 12:05 by Janette Rivera RN) History of esophagogastroduodenoscopy (EGD) (02/14/24) Hx of umbilical hernia repair Hx of rotator cuff surgery Hx of colonoscopy Hx of oral surgery Family History (Updated 01/01/24 @ 10:02 by Blanche Oneill CMA) Mother Breast CA Father FH: prostate cancer Social History (Updated 03/28/24 @ 12:12 by Janette Rivera RN) Household Members: Family Housing: House Are you a primary director career services to a significant other at home: Yes (sister w/dementia and son w/ autism-aunt will help post-op) Do you presently have visiting nurse or other home services: No Alcohol intake: never Patient Tobacco Use Status: Never used Tobacco Telehealth Telehealth Telehealth Platform: Telephone Location of provider rendering services: practice address Location of patient: address on file Patient Identification confirmed using: Name, : Yes Telehealth method: voice only Patient verbally consented to treatment: Yes Patient verbally consented to billing insurance company: Yes Patient informed of any privacy concerns related to visit: Yes Minutes spent on Phone/Video with Pt.: 25 Assessment & Plan Assessment & Plan (1) Obesity: Code(s): E66.9 - Obesity, unspecified Category: Medical Qualifiers: Obesity type: due to excess calories Obesity classification: adult class 2 (BMI 35 - 39.9) Serious obesity comorbidity presence: with serious comorbidity Body mass index: BMI 38.0-38.9 Qualified Code(s): E66.01 - Morbid (severe) obesity due to excess calories; Z68.38 - Body mass index [BMI] 38.0- 38.9, adult Plan: 1. Plan for lap sleeve gastrectomy including upper GI endoscopy. All tests has been completed and reviewed and the patient is cleared for the surgery. ?If diap hragmatic or ventral hernias are present at time of surgery, these will be repaired laparoscopically as well. Risks and complications were discussed in detail including possible conversion to an open procedure, anastomotic leak, bleeding requiring transfusion, small bowel obstruction, , DVT and pulmonary embolism, cardiac, or pulmonary complications, as [facility] complications such as anastomotic ulcer, insufficient weight loss and vitamin deficiencies. I emphasized the importance of close follow-up, adherence to instructions and good communication. So far she has proven to be an excellent communicator and very compliant with all our directions accomplishing a great weight loss. I believe that she is an excellent candidate and she is ready. 2. Preop prescriptions were provided and explained the purpose of each one. Need to be purchased preop. Start Pantoprazole now as you get it from the pharmacy, 1 pill per day. Sucralfate and Zofran are for after surgery as needed. 3. Bowel prep: please do 7 packets ?of Miralax mixing each one with a an 8oz glass of water, crystal light, gatorade zero, or propel ?on 04/08/24 and the same amount on 04/09/24. The Miralax you begin with one packet at a time in 8oz water or crystal light, gatorade zero, or propel ?as early in the day as you can and you do them back to back until you finish them. Continue the protein shakes during ?the bowel prep. 4. Needs to purchase 1oz medicine cups . 5. Needs to purchase Children's liquid Tylenol for postop pain control. 6. Avoid aspirin, motrin, Advil, Aleve, Ibuprofen, Naproxyn. Tylenol is OK. 7. She needs to purchase the Celebrate REBUILD (to use before surgery) AND Celebrate 4:1 protein shakes (to use after surgery) from the hospital's gift shop. 8. Will do basic preop blood work-up any day between Monday04/02/24 and Monday04/05/24 fasting for 12 hours and is scheduled to see the Anesthesiologist prior to the day of surgery. 9. Importance of adherence to postop folllow-up and recommendations was underscored and she understands that. 10. Stop food and bars as of tomorrow 04/02/24 and continue with the Celebrate REBUILD protein shakes only per the héctor's plan 11. No soups, broths or V8 12. The patient's?medical?history has been reviewed and they are considered low risk for post op DVT and therefore DVT prophylaxis is not considered necessary. Travel after surgery was reviewed. The patient has not disclosed any travel plans during the first 30 days after surgery and they have been advised that within the first 30 days after surgery any bus, plane, train or car travel over 2 hours in duration is contraindicated due to the possibility of developing blood clots from immobility. Any travel, needs to include periods of ambulation of 10 minutes in duration every 2 hours.? Patient was instructed to discuss any plans for travel during this period with their bariatric surgeon.? 13. Use your CPAP daily and bring it to the hospital with your mask 14. Please take at the day of surgery the following medications: NONE 15. Stop any control pills and don't use them for one month after surgery 16. Absolutely no smoking or vaping, or marijuana until the surgery and for at least the first 4 weeks. Only nicotine patches are allowed. 17. Send me weight measurements on Thursday 04/05 and then on 04/10/24, the day of surgery before you go to the hospital. 18. Avoid any steroids by mouth for any reason. Let me know if someone prescribes them to you 19. These instructions supersede anything else you read in the handbook, anything you watched in videos or classes or you were told by any other provider. If there is any conflict, you follow the above instructions and nothing else. Orders: Orders Comprehensive Met. Panel Today E66.01 - Morbid (severe) obesity due to excess calories, G47.30 - Sleep apnea, unspecified, J45.909 - Unspecified asthma, uncomplicated, Z68.38 - Body mass index [BMI] 38.0-38.9, adult Prothrombin Time INR Today E66.01 - Morbid (severe) obesity due to excess calories, G47.30 - Sleep apnea, unspecified, J45.909 - Unspecified asthma, uncomplicated, Z68.38 - Body mass index [BMI] 38.0-38.9, adult Hemoglobin A1c Today E66.01 - Morbid (severe) obesity due to excess calories, G47.30 - Sleep apnea, unspecified, J45.909 - Unspecified asthma, uncomplicated, Z68.38 - Body mass index [BMI] 38.0-38.9, adult Type and Screen Today E66.01 - Morbid (severe) obesity due to excess calories, G47.30 - Sleep apnea, unspecified, J45.909 - Unspecified asthma, uncomplicated, Z68.38 - Body mass index [BMI] 38.0-38.9, adult C Reactive Protein Today E66.01 - Morbid (severe) obesity due to excess calories, G47.30 - Sleep apnea, unspecified, J45.909 - Unspecified asthma, uncomplicated, Z68.38 - Body mass index [BMI] 38.0-38.9, adult Complete Blood Count Auto Diff Today E66.01 - Morbid (severe) obesity due to excess calories, G47.30 - Sleep apnea, unspecified, J45.909 - Unspecified asthma, uncomplicated, Z68.38 - Body mass index [BMI] 38.0-38.9, adult Insulin Today E66.01 - Morbid (severe) obesity due to excess calories, G47.30 - Sleep apnea, unspecified, J45.909 - Unspecified asthma, uncomplicated, Z68.38 - Body mass index [BMI] 38.0-38.9, adult TSH reflex Free T4 Today E66.01 - Morbid (severe) obesity due to excess calories, G47.30 - Sleep apnea, unspecified, J45.909 - Unspecified asthma, uncomplicated, Z68.38 - Body mass index [BMI] 38.0-38.9, adult Lipid Panel Today E66.01 - Morbid (severe) obesity due to excess calories, G47.30 - Sleep apnea, unspecified, J45.909 - Unspecified asthma, uncomplicated, Z68.38 - Body mass index [BMI] 38.0-38.9, adult Partial Thromboplastin Time Today E66.01 - Morbid (severe) obesity due to excess calories, G47.30 - Sleep apnea, unspecified, J45.909 - Unspecified asthma, uncomplicated, Z68.38 - Body mass index [BMI] 38.0-38.9, adult Medications: New sucralfate 10 mL PO BID 600 mL 2RF K21.9 - Gastro-esophageal reflux disease without esophagitis pantoprazole 40 mg PO DAILY 90 tabs 0RF K21.9 - Gastro-esophageal reflux disease without esophagitis ondansetron Only take one every 12 hours as needed if you have nausea 4 mg PO Q12H 20 tabs 0RF nausea and vomiting R11.0 - Nausea polyethylene glycol 3350 Mix each measuring cup with 8oz of water, Crystal light, or Gatorade zero, or Propel and do 7 measuring cups on 04/08/24 and another 7 measuring cups on 04/09/24 17 grams PO DAILY 238 grams 0RF Z01.818 - Encounter for other p reprocedural examination
== END 2024-04-01 12:50 | disposition home or self-care (01) ==
PROVIDERS: Visit Provider Surgery
DX: E66.01 Morbid (severe) obesity due to excess calories (principal); Z68.38 Body mass index [BMI] 38.0-38.9, adult
CPT/HCPCS: 99213

== ENCOUNTER → 2024-04-01 08:07 | Outpatient (BNVA) | payer MEDICARE, MEDICAID, SELFPAY | PROVIDERS: Visit Provider Surgery | DX: Z01.818 Encounter for other preprocedural examination (principal); E66.01 Morbid (severe) obesity due to excess calories; G47.30 Sleep apnea, unspecified; J45.909 Unspecified asthma, uncomplicated; Z68.38 Body mass index [BMI] 38.0-38.9, adult | CPT/HCPCS: 99212 ==

== ENCOUNTER → 2024-04-02 07:39 | Outpatient (BNVA) | payer MEDICARE, MEDICAID, SELFPAY | PROVIDERS: Visit Provider Surgery ==

== ENCOUNTER 2024-04-10 06:07 | Inpatient (IN) | payer MEDICARE, MEDICAID, SELFPAY ==
[2024-03-28 12:06] VITALS: BMI 34.0
[2024-04-02 07:36] LABS: MANUAL DIFF FLAG NO
[2024-04-02 07:57] LABS: Basophils Percent Auto 0.5 % (0-2); Eosinophils Absolute Auto 0.1 X10*3/uL (0.0-0.4); Eosinophils Percent Auto 0.8 % (0-4); Hematocrit 41.9 % (37.0-47.0); Imm Gran Abs Auto 0.01 X10*3/uL (0.00-0.03); Imm Gran Pct Auto 0.2 % (0.0-0.4); Lymphocytes Absolute Auto 2.5 X10*3/uL (1.2-4.9); Lymphocytes Percent Auto 39.5 % (20-40); Mean Corpuscular HGB Conc 33.4 g/dl (31.0-35.0); Mean Corpuscular Hemoglobin 29.2 pg (27.0-33.0); Mean Corpuscular Volume 87.5 fL (80.0-98.0); Mean Platelet Volume 10.8 fL (9.4-12.3); Monocytes Absolute Auto 0.3 X10*3/uL (0.1-1.2); Monocytes Percent Auto 5.3 % (2-11); Neutrophils Absolute Auto 3.4 x10*3/uL (2.0-8.3); Neutrophils Percent Auto 53.7 % (45-73); Platelet Count 268 X10*3/uL (160-400); Red Blood Count 4.79 X10*6/uL (4.20-5.50); Red Cell Distribution Width 13.1 % (11.0-16.0); White Blood Count 6.3 X10*3/uL (4.8-10.8)
[2024-04-02 08:03] LABS: Prothrombin Time 12.1 SEC (11.1-13.3)
[2024-04-02 08:05] LABS: Partial Thromboplastin Time 40.8 SEC (26.0-36.8)
[2024-04-02 08:13] LABS: Estimated Average Glucose 103 mg/dL; Hemoglobin A1c % 5.2 % (<6.0)
[2024-04-02 08:18] LABS: Alanine Aminotransferase 8 U/L (0-31); Albumin Level 4.2 g/dL (3.5-5.0); Alkaline Phosphatase 55 U/L (39-117); Anion Gap 14 (12-20); Aspartate Amino Transferase 11 U/L (5-31); Bilirubin Total 0.4 mg/dL (0.0-1.0); Blood Urea Nitrogen 12 mg/dL (9-16); C Reactive Protein 1.62 mg/dL (< or = 0.50); Calcium 10.1 mg/dL (8.4-10.2); Carbon Dioxide 28 mmol/L (22-29); Chloride 106 mmol/L (96-108); Cholesterol 188 mg/dL (<200); Creatinine Clr Calc Pharmacy 83.2; Estimated Glomerular Filt Rate > 60; Glucose Random 99 mg/dL (60-115); HDL Cholesterol 40 mg/dL (>40); LDL Cholesterol Calculated 128 mg/dL (<100); Potassium 3.6 mmol/L (3.3-5.1); Sodium 144 mmol/L (135-145); Total Protein 7.3 g/dL (6.5-8.0); Triglycerides 100 mg/dL (<150)
[2024-04-02 08:43] LABS: TSH reflex Free T4 2.64 uIU/mL (0.32-4.0)
[2024-04-02 08:52] LABS: Insulin 9 uU/mL (2-29)
--- NOTE | 2024-04-02 14:08 | HO.ANESPROP2 ---
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 Botox injections, last 01/2024 Accidental Left Vocal cord paralysis s/p ?myofascial trigger point injection Case reviewed with Dr Ventura. [facility] Active Problems Active Problems: All Active Problems Vitamin B12 deficiency (Acute) Vitamin A deficiency (Acute) BMI 38.0-38.9,adult (Acute) Obesity (Acute) Anxiety (Acute) DJD (degenerative joint disease) (Acute) Asthma (Acute) Sleep apnea treated with continuous positive airway pressure (CPAP) (Acute) Past Medical History Medical History Torticollis Spasmodic torticollis History of tremor IBS (irritable bowel syndrome) Fatty liver Vocal cord dysfunction Unilateral vocal cord paralysis DJD (degenerative joint disease) Arthritis Back pain Seasonal depression Anxiety DJD (degenerative joint disease) Asthma Sleep apnea treated with continuous positive airway pressure (CPAP) Family History Family History Mother Breast CA Father FH: prostate cancer Family history of problems with anesthesia: No Surgical History Surgical History History of esophagogastroduodenoscopy (EGD) (02/14/24) Hx of umbilical hernia repair Hx of rotator cuff surgery Hx of colonoscopy Hx of oral surgery History of Problems with Anesthesia: No Social History Social History Household Members: Family Housing: House Are you a primary customer care assistant to a significant other at home: Yes (sister w/dementia and son w/ autism-aunt will help post-op) Do you presently have visiting nurse or other home services: No Alcohol intake: never Patient Tobacco Use Status: Never used Tobacco Use of substances other than those prescribed or required for medical reasons: No Have you been hit, kicked, punched, or otherwise hurt by someone within the past year? If so, by whom?: No Are you DNR?: No Advance Directives: No Advance Directives Information Provided: Yes Advance Directives on File: No Recently lost weight without trying: No Meds Allergies Allergy/AdvReac Type Severity Reaction Status Date / Time duloxetine [From Cymbalta] AdvReac Intermediate Gastrointestinal Verified 04/01/24 12:34 Upset oxycodone [From Percocet] AdvReac Intermediate Vomiting Verified 04/01/24 12:34 Home Medications ?Medication ?Instructions ?Recorded ?Confirmed ?Last Taken ?Type albuterol sulfate 90 mcg/actuation 1 inh inhalation Q4-8H PRN sob 01/01/24 04/10/24 Unknown History aerosol inhaler (Ventolin HFA) cholecalciferol (vitamin D3) 25 25 mcg PO DAILY 03/28/24 04/01/24 04/08/24 History mcg (1,000 unit) capsule (Vitamin D3) Exam Height,Weight and Vital Signs: Height 5 ft 4 in Weight 89.811 kg Pertinent Lab Results Pertinent Lab Results: Laboratory Tests 04/02/24 04/02/24 07:26 07:35 WBC 6.3 RBC 4.79 Hgb 14.0 Hct 41.9 MCV 87.5 MCH 29.2 MCHC 33.4 RDW 13.1 Plt Count 268 MPV 10.8 Immature Gran % (Auto) 0.2 Neut % (Auto) 53.7 Lymph % (Auto) 39.5 [place] % (Auto) 5.3 Eos % (Auto) 0.8 Baso % (Auto) 0.5 Lymph # (Auto) 2.5 [place] # (Auto) 0.3 Eos # (Auto) 0.1 Baso # (Auto) 0.0 Abs Immat Gran (auto) 0.01 Absolute Neuts (auto) 3.4 Absolute Nucleated RBC 0.000 Nucleated RBC % (auto) 0.0 PT 12.1 INR 1.0 APTT 40.8 H Sodium 144 Potassium 3.6 Chloride 106 Carbon Dioxide 28 Anion Gap 14 BUN 12 Creatinine 0.77 Estim Creat Clear Calc 83.2 Estimated GFR > 60 Random Glucose 99 Estimat Average Glucose 103 Hemoglobin A1c % 5.2 Insulin Level 9 Calcium 10.1 Total Bilirubin 0.4 AST 11 ALT 8 Alkaline Phosphatase 55 C-Reactive Protein 1.62 H Total Protein 7.3 Albumin 4.2 Triglycerides 100 Cholesterol 188 LDL Cholesterol, Calc 128 H HDL Cholesterol 40 L TSH 2.64 Blood Type A Negative Antibody Screen NEGATIVE Narrative Narrative: EKG 01/2024 Vent. Rate : 073 BPM Atrial Rate : 073 BPM P-R Int : 122 ms QRS Dur : 070 ms QT Int : 390 ms P-R-T Axes : 040 013 029 degrees QTc Int : 429 ms Normal sinus rhythm Low voltage QRS Borderline ECG No previous ECGs available ECHO 2023 Summary The left ventricular size is normal. Left ventricular wall thickness is normal. The LV systolic function is normal . The left ventricular ejection fraction is 60-65 %. There are no regional wall motion abnormalities. Normal diastolic function. There is a false tendon noted in the left ventricle. The right ventricle is normal in size and function. Head/Neck CT 2019 IMPRESSION: No evidence of mass, abnormal lymphadenopathy, or abnormal fluid collection within the neck. The airway is patent without compromise. Mild medialization of the right true vocal cord is noted, which could potentially indicate paresis or paralysis. Would correlate clinically, with direct visualization if felt warranted. Left head tilt consistent with given history of torticollis. Assessment and Plan Assessment Anesthesia Assessment: Chart Reviewed Final Anesthetic Review Family History of Problems with Anesthesia: No History of Problems with Anesthesia: No Documented by User: Nancy Magana MD 04/10/24 09:47 HPI - Anesthesia Eval Consult details Narrative: 59yo F for Gastrectomy Sleeve- EGD, possible diaphragmatic hernia, possible ventral hernia, possible open s/p EGD 02/2024 with TIVA Follows [facility] for cervical dystonia. Botox injections, last 01/2024 Accidental Left Vocal cord paralysis s/p ?myofascial trigger point injection Case reviewed with Dr Ventura. 04/10/24: Patient with Right vocal cord paralysis and Left vocal cord dystonia. Getting botox injections for spasmodic torticollis. Patient with h/o frequent aspirations in the past -'choking on her saliva' but very infrequently happens now. Symptom of the dystonia has been change in voice. Diagnosis made in 2019. Patient stated had not had a general anesthetic since diagnosis.(However review of procedure note from Neurologist states shoulder surgery in 2021- apparently no anesthetic issues?). Nevertheless, patient remains at increased risk for post-op stridor which may necessitate re-intubation and also at risk for aspiration. Discussed this with patient and with Dr Farfan. They both wish to proceed. PMFSH Active Problems Active Problems: All Active Problems Vitamin B12 deficiency (Acute) Vitamin A deficiency (Acute) BMI 38.0-38.9,adult (Acute) Obesity (Acute) Anxiety (Acute) DJD (degenerative joint disease) (Acute) Asthma (Acute)- controlled. Has not needed inhalers recently Sleep apnea treated with continuous positive airway pressure (CPAP) (Acute) Bilateral vocal cord dysfunction Spasmodic Torticollis with neck pain- head looking down and to the left Tremor of head- side to side Vocal tremor Small hiatal hernia GERD Right shoulder pain s/p Right rotator cuff repair 01/2022 Past Medical History Medical History Torticollis Spasmodic torticollis History of tremor IBS (irritable bowel syndrome) Fatty liver Vocal cord dysfunction Unilateral vocal cord paralysis DJD (degenerative joint disease) Arthritis Back pain Seasonal depression Anxiety DJD (degenerative joint disease) Asthma Sleep apnea treated with continuous positive airway pressure (CPAP) Family History Family History Mother Breast CA Father FH: prostate cancer Family history of problems with anesthesia: No Surgical History Surgical History History of esophagogastroduodenoscopy (EGD) (02/14/24) Hx of umbilical hernia repair Hx of rotator cuff surgery Hx of colonoscopy Hx of oral surgery History of Problems with Anesthesia: No Social History Social History Household Members: Family Housing: House Are you a primary customer care assistant to a significant other at home: Yes (sister w/dementia and son w/ autism-aunt will help post-op) Do you presently have visiting nurse or other home services: No Alcohol intake: never Patient Tobacco Use Status: Never used Tobacco Use of substances other than those prescribed or required for medical reasons: No Have you been hit, kicked, punched, or otherwise hurt by someone within the past year? If so, by whom?: No Are you DNR?: No Advance Directives: No Advance Directives Information Provided: Yes Advance Directives on File: No Recently lost weight without trying: No Meds Allergies Allergy/AdvReac Type Severity Reaction Status Date / Time duloxetine [From Cymbalta] AdvReac Intermediate Gastrointestinal Verified 04/01/24 12:34 Upset oxycodone [From Percocet] AdvReac Intermediate Vomiting Verified 04/01/24 12:34 Home Medications ?Medication ?Instructions ?Recorded ?Confirmed ?Last Taken ?Type albuterol sulfate 90 mcg/actuation 1 inh inhalation Q4-8H PRN sob 01/01/24 04/10/24 Unknown History aerosol inhaler (Ventolin HFA) cholecalciferol (vitamin D3) 25 25 mcg PO DAILY 03/28/24 04/01/24 04/08/24 History mcg (1,000 unit) capsule (Vitamin D3) Exam Height,Weight and Vital Signs: Height 5 ft 4 in Weight 89.811 kg 04/10/24: Height 5 ft 4 in Weight 88.507 kg Vital Signs Temp Pulse Resp BP Pulse Ox O2 Del Method 04/10/24 06:32 97.4 F 68 16 118/69 99 Room Air Airway Mallampati Class: II TM Dist: <=3cm Neck ROM: Limited (Torticollis) Denture: Upper Partial: Lower Loose/Missing/Broken Teeth: Yes Heart: RRR Lungs: CTAB Assessment and Plan Assessment Anesthesia Assessment: Anesthesia Plan Discussed and Chart Reviewed Final Anesthetic Review Family History of Problems with Anesthesia: No History of Problems with Anesthesia: No NPO: Yes ASA Class: III Final Preanesthetic Review: No Changes in Pt Med Stat, Meds/Allgs Chart Reviewed, Consent Obtained/Reviewed and Anes Risks/Benef Reviewed Patient Risk: Intermediate Procedure Risk: Intermediate Assessment/Block/Sedation in SS: Assess/Block/Sedation-SS Anesthetic Plan Anesthetic Plan: GA and Other (Patient aware of possibility of stridor, post-op re-intubation, ICU admission post-op and wishes to proceed) Disposition: Standard PACU and Inp. Admit - Standard Bed
[2024-04-10] VITALS (17 sets, daily range): BP systolic 118–165; BP diastolic 69–99; PULSE 65–89; RESP 10–20; TEMP 36–36.9; O2SAT 93–100; BMI 33.5
--- NOTE | 2024-04-10 06:39 | PHA.MEDREC ---
Pharmacy Consult ? Medication Reconciliation Pharmacy has completed the medication reconciliation. Checked med rec done by nursing
[2024-04-10] MEDS: Lactated Ringers 1,000 ML 999 ML IV ×2 (07:00→08:45)
[2024-04-10] MEDS: Aprepitant 32 MG/4.4 ML VIAL IVPUSH (07:08)
--- NOTE | 2024-04-10 07:30 | MHC.SHP ---
Pre-Procedural Eval Section A - 24 Hr Update-Section A only Date of Service: 04/10/24 The patient is an INPATIENT: No The patient has been examined within 24 hours of the surgical procedure. The History & Physical has been completed within 30 days and I have reviewed it.: No Section B - Complete if H&P > 30 days Chief Complaint: Obesity Relevant Family History (Specify if Yes): No Relevant Social History: None Present Medications: None Medical History: No relevant PMH History of Previous Operations: No relevant previous surgery Allergies: Allergies Allergy/AdvReac Type Severity Reaction Status Date / Time duloxetine [From Cymbalta] AdvReac Intermediate Gastrointestinal Verified 04/01/24 12:34 Upset oxycodone [From Percocet] AdvReac Intermediate Vomiting Verified 04/01/24 12:34 Review of Systems Sugical H&P ROS: Negative: Constitution, Cardiovascular, Respiratory, Neurological, Psychiatric, Hem-Onc, Allergic/Immunologic, Gastrointestinal, Genitourinary, Musculoskeletal, Integumentary, Endocrine and Eyes/Ears/Nose/Throat Exam Surgical H&P Exam: Normal: HEENT, Normal: Heart, Normal: Lungs, Normal: Extremities, Normal: Abdomen, Normal: Skin and Normal: Neurological Plan Diagnosis/Plan: Unchanged I have reviewed the history and physical and performed a pertinent physical examination on my patient. No changes have occurred unless specified. Time Spent With Patient Time: Total time managing care of this patient today ____ minutes.
--- NOTE | 2024-04-10 07:32 | PM.OP ---
Brief Operative Note Date of Service: 04/10/24 Pre-op diagnosis: Severe obesity with comorbidities (see below) Post-op diagnosis: same (& abdominal adhesions) Procedure: INITIAL PATIENT BMI ON PRESENTATION AT OUR OFFICE: 38 kg/m2 COMORBIDITIES: sleep apnea on CPAP, asthma, hyperlipidemia, anxiety, GERD, liver steatosis ?The patient presented to the Weight Management Program with significant obesity that was negatively impacting the patient's comorbidities as listed above.? The program is a phased program with a special focus on preoperative medical weight management to promote substantial weight loss and prepare the patients for the second phase of the program: bariatric surgery. The patient participated in an intensive weekly lifestyle ?intervention and exercise program during which the patient ?has lost between the initial office visit and the last preoperative visit 15lbs, or 7% of initial actual body weight. It was deemed appropriate for the patient to now have bariatric surgery. In light of the current Covid-19 pandemic and the well documented strong association of obesity and increased risk of worse outcomes if infected with Covid-19 (REFERENCES:https://pubmed.ncbi.nlm.nih.gov/96634571/,?https://pubmed.ncbi.nlm.nih.gov/38718777/), any delay in undergoing bariatric surgery may lead to the patient's worsening health condition and increased?risk of more severe Covid-19 disease if infected. In addition a recent?study from [facility] published in [facility] on 08/09/2021 ([email or web address]) found that, among patients with obesity, substantial weight loss achieved with surgery was associated with improved outcomes of COVID-19 infection. The findings suggest that obesity can be a modifiable risk factor for the severity of COVID-19 infection. In addition, the patient met the BMI-criteria for bariatric surgery based on the BMI on initial presentation. The patient should not be penalized for achieving such weight loss because ?it is not sustainable long-term without surgical intervention and it was achieved in preparation for bariatric surgery ?under my direction and based on my published research ([email or web address] and?[email or web address].soard.org/[email or web address])31793-X/pdf) ?that a 10% preoperative weight loss improves long-term weight loss after surgery and reduces perioperative complications.? Insurance carriers such as [facility] have endorsed my recommendations ?and have included in their policies criteria to include a 10% preoperative weight loss requirement. PROCEDURE: Esophago-gastroscopy, laparoscopic lysis of adhesions, laparoscopic sleeve gastrectomy and laparoscopic gastropexy INDICATIONS: This is a 59 year-old female who was electively scheduled for laparoscopic, possibly open sleeve gastrectomy. The risks and complications of the procedure were discussed with the patient in advance, particularly the possibility of ; pulmonary embolism; staple line leak; bleeding; GERD; cardiac, pulmonary, or renal complications; as well as long-term problems such as insufficient weight loss, vitamin deficiency, strictures, or ulcers. The patient understood all the risks, and was in agreement to proceed with surgery. DESCRIPTION OF PROCEDURE: After informed consent was obtained from the patient, the patient was given preoperative antibiotics, and was transferred to the operating room. After successful induction of general anesthesia, pneumatic compression devices were placed on both lower extremities. An upper endoscopy was performed next. The oropharynx and esophagus appeared to be within normal limits. There was no significant diaphragmatic hernia present. The stomach was entered. Then after all fluid and air were suctioned and the stomach was fully decompressed, the scope was withdrawn and secured in the mid esophagus. The patient was then prepped and draped in the usual sterile manner, and abdominal access was established at the right upper quadrant with the Ana Cristina technique. A 12 mm blunt port was inserted, and the abdomen was insufflated with CO2 to a pressure of 15 mmHg. Under direct visualization, additional ports were placed, specifically two 5 mm Versi-step ports to the left upper quadrant, and a 5 mm Versi-Step port to the right upper quadrant. 1% lidocaine plain was used to infiltrate all port sites as well as all fascia defects. Following that, the patient was placed in a steep reverse Trendelenburg position. An additional 5 mm port was placed to the right flank for the Mediflex retractor that was used to retract the left lobe of the liver. The gastro-esophageal fat pad was opened with the ultrasonic device (Thnelyerbeselma, Olympus) and the anterior esophagus and hiatus were exposed. The angle of His was opened with the ultrasonic device the fundus of the stomach from any diaphragmatic and splenic attachments. I then opened the gastrocolic ligament between the transverse colon and the greater curvature of the stomach with the ultrasonic device to enter the lesser sac and facilitate the ligation of the short gastric vessels. I started at a mid-point along the greater curvature and using the Thunderbeat, all short gastric vessels were divided all the way to the angle of His until the left obed was completely dissected at its entirety. I then divided the gastro-colic ligament distally to a distance of about 3-4 cm proximal to the pylorus. There were extensive congenital adhesions between the pancreas and posterior gastric wall. Those were lysed completely with the ultrasonic device. Adhesiolysis took approximately 45 min to complete. The stomach was then divided transversely with two Endo TED-45 purple and four TED-60 articulating purple loads using the [employer] stapler and loads. Every effort was made that the gastric sleeve had a tubular shape and an even caliber throughout. Once the sleeve resection was completed, the staple line of the gastric sleeve was reinforced with Hemoclips. The resected stomach was retrieved without difficulty from the Ana Cristina port. A gastropexy was then performed in order to prevent postoperative GERD and partial gastric volvulus. Several interrupted 2.0 Surgidac sutures were placed between the sleeve's staple line and the previously divided greater omentum and gastro-colic ligament using the Endo-Stitch device. ?An upper endoscopy was performed. There was no narrowing at the GE junction. The scope was easily advanced all the way to the pylorus which was clearly visualized. There was no narrowing anywhere and the sleeve's caliber was even throughout. The sleeve's staple line was inspected and there was no evidence of ischemia, bleeding or dehiscence. At that point the gastroscope was withdrawn from the patient?s mouth while we were decompressing the bowel and the stomach from any remaining air. I looked into the lesser sac to see how the sleeve was situating and it was situating well. There was no bleeding from the staple line, spleen, or short gastric vessels. The Mediflex retractor was removed, and the undersurface of the liver was inspected and there was no bleeding. The patient was placed in supine position. I closed the fascial defect of the 12 mm port site with a figure of eight #1 Polysorb suture. Then 30cc Ropivacaine plain with 10 mg of Dexamethasone were used to infiltrate the fascial closure as well as all skin incisions. At this point, the abdomen was deflated, all ports were removed under direct vision, and no bleeding was noted from any of the port sites. The skin incisions were irrigated with saline and were closed with 4-0 absorbable monofilament sutures. Steri-Strips and OpSites were used to cover all incisions. The patient was extubated and was transferred in stable condition to the recovery room for further care. I was present and performed all sarah parts of the procedure. Mr. Marquez was the assistant manager retail. There were no residents to assist with this case. Hermes Farfan MD, PhD, FACS Surgeon: Mike Farfan MD Anesthesia: GETA, local and other (TAP block ) Was an Expeller Operator used for this Procedure?: No Expeller Operator: Ismael Marquez Estimated blood loss (mL): 10 IV fluids (mL): 1,400 Urine output (mL): 0 (No Angela to record output) Pathology: other (Stomach) Condition: stable Disposition: PACU
--- NOTE | 2024-04-10 07:35 | P.PNGS_ITS ---
Subjective Subjective Date of Service: 04/11/24 Interval history: Feels well. Mild incisional pain. She is tolerating phase 1 bariatric diet Physical Exam 2 Vital Signs: Vital Signs: Last Vital Signs Temp 97.4 F 04/10/24 06:32 Pulse 68 04/10/24 06:32 Resp 16 04/10/24 06:32 BP 118/69 04/10/24 06:32 Pulse Ox 99 04/10/24 06:32 O2 Del Method Room Air 04/10/24 06:32 BMI result Body Mass Index 33.5 GI: Inspection: Yes normal to inspection, Yes incision (lean, dry and intact) and Yes obesity Palpation (GI): Soft to palpation Extrem: Right lower extremity: normal to inspection (no calf tenderness) L eft lower extremity: normal to inspection (no calf tenderness) Objective Data Active Medications Albuterol Sulfate (Albuterol Sulfate (0.083%) 2.5 Mg/3 Ml Vial.Neb) 2.5 mg INHALE ONCE PRN PRN Reason: Shortness of Breath/Wheezing Lactated Ringer's (Lr) 1,000 mls @ 100 mls/hr IVCONT .Q10H HESHAM Lactated Ringer's (Lr) 1,000 mls @ 999 mls/hr IV .Q1H1M HESHAM Stop: 04/10/24 08:15 Last Admin: 04/10/24 07:00 Dose: 999 mls/hr Documented By: [facility]UNC[facility] 04/11/24 05:14 04/11/24 05:14 Procedures Date of Service Date of Service: 04/11/24 Progress Note: A&P Assessment and plan (1) Obesity: Status: Acute Assessment and Plan: s/p laparoscopic sleeve gastrectomy, lysis of adhesions and gastropexy Doing well Will check am labs and if OK the patient will be discharged home (2) BMI 35.0-35.9,adult: Status: Acute (3) Sleep apnea treated with continuous positive airway pressure (CPAP): Status: Acute (4) Asthma: Status: Acute (5) DJD (degenerative joint disease): Status: Acute (6) Anxiety: Status: Acute (7) S/P laparoscopic sleeve gastrectomy: Status: Acute (8) Congenital intra-abdominal adhesions: Status: Acute Time Spent With Patient Time: Total time managing care of this patient today ____ minutes. Quality Stroke Does the patient have a stroke diagnosis?: No VTE Prior VTE?: No VTE Risk Level:: Surgical - moderate VTE Device Contraindication: N/A - Device Ordered VTE Drug Contraindication: Treatment Not Indicated
--- NOTE | 2024-04-10 08:45 | PC.NURSE ---
patient delayed because of insurance coverage. aware of plan.
--- NOTE | 2024-04-10 11:01 | P.DS_ITS ---
DS: Providers Provider Date of Service: 04/11/24 Date of admission: 04/10/24 06:07 Primary care physician: Unknown Physician DS: Diagnosis Discharge Diagnosis (1) Obesity: Status: Acute (2) BMI 35.0-35.9,adult: Status: Acute (3) Sleep apnea treated with continuous positive airway pressure (CPAP): Status: Acute (4) Asthma: Status: Acute (5) DJD (degenerative joint disease): Status: Acute (6) Anxiety: Status: Acute (7) S/P laparoscopic sleeve gastrectomy: Status: Acute (8) Congenital intra-abdominal adhesions: Status: Acute DS: Summary Hospital Course Hospital Course: ADMITTING DIAGNOSIS: obesity, joseph, anxiety, asthma ? DISCHARGE DIAGNOSIS: same, s/p laparoscopic sleeve gastrectomy ? PAST SURGICAL HISTORY: umbilical hernia, right rotator cuff ? PROCEDURE: upper endoscopy, laparoscopic sleeve gastrectomy ? DISCHARGE SUMMARY: ? History of Present Illness: ? The patient is a?59 year-old woman with a BMI of?38 kg/m2 and associated co-morbidities as described above. The patient had extensive work-up,lost?20.5 lbs preoperatively and was electively scheduled for laparoscopic, possible open sleeve gastrectomy and gastropexy. Risks and complications of the surgery were discussed with the patient in advance, particularly the possibility of , pulmonary embolism, anastomotic leak, bleeding, bowel injury, GERD, cardiac, renal or pulmonary complications. The patient understood all the risks and was in agreement with the surgical plan. ? Hospital Course: ? The patient underwent an uneventful laparoscopic sleeve gastrectomy with gastro pexy on the day of admission. Postoperatively, the patient was transferred to the surgical floor. The patient received IV Acetaminophen and IV dilaudid for pain control. Patient was started on bariatric phase 1 diet POD #0. On postoperative day one, the patient was feeling well without nausea, vomiting, fevers, or tachycardia. The patient had some mild incisional pain and the abdomen was soft. ? On the morning of postoperative day one, the patient was continued on 1 ounce of water or ice every half hour. During the day, the patient did fairly well, having some incisional pain, but able to ambulate adequately and to tolerate liquids well. ? Since the patient is doing well, we decided that the patient was ready to be discharged. The patient was given instructions to follow-up with me next week and to call my office for any fever over 101, persistent abdominal pain, nausea, vomiting, GERD, symptoms of DVT such as calf tenderness, or leg swelling, or pulmonary embolism such as chest pain or shortness of breath. The patient was also instructed to drink 40-60 ounces of liquids per day using the 1-ounce cups. The patient had been given prescriptions for Tylenol for pain, Zofran prn for nausea, and pantoprazole and carafate previously. The patient was encouraged to ambulate and use the incentive spirometer. The patient was allowed to shower, but no baths, and encouraged to stay active at home. All of these instructions were given to the patient personally. All questions were answered and the patient understood all instructions, the instructions were also given to the patient in print. Time Attestation Total time managing care of this patient today: 25 mintues. Discharge Coordination Time (in mins): 25 Quality: Safe Use of Opioids Does Pt have an Active Cancer Diagnosis on the Problem List?: No Quality: Stroke Does the patient have a stroke diagnosis?: No Physical Exam Vital Signs: Vital Signs: Last Vital Signs Temp 97.4 F 04/10/24 06:32 Pulse 68 04/10/24 06:32 Resp 16 04/10/24 06:32 BP 118/69 04/10/24 06:32 Pulse Ox 99 04/10/24 06:32 O2 Del Method Room Air 04/10/24 06:32 BMI result Body Mass Index 33.5 DS: Data Data Completed and Pending Pending studies at discharge: Pending at discharge 04/10/24 10:17 Surgical [PTH] Routine 04/10/24 10:20 Surgical [PTH] Routine Discharge Plan Discharge Anticipated Discharge Date/Time: 04/11/24 10:00 Patient Disposition: Home, Self-Care Discharge Diagnosis: s/p laparoscopic sleeve gastrectomy Referrals: Physician,Unknown J [Primary Care Provider] - 1 Week Discharge Medications: Continued albuterol sulfate [Ventolin HFA] 90 mcg/actuation HFA aerosol inhaler 1 inh inhalation Q4-8H PRN (Reason: sob) pantoprazole 40 mg tablet,delayed release (DR/EC) 40 mg PO DAILY Qty: 90 0RF sucralfate 100 mg/mL suspension 10 ml PO BID Qty: 600 2RF ondansetron 4 mg tablet,disintegrating 4 mg PO Q12H Qty: 20 0RF Rx Instructions: Only take one every 12 hours as needed if you have nausea Discontinued vitamin A palmitate 3,000 mcg (10,000 unit) capsule 10,000 unit PO DAILY Qty: 60 0RF mecobalamin (vitamin B12) 1,000 mcg tablet,disintegrating 1,000 mcg sublingual DAILY Qty: 60 0RF Rx Instructions: place tablet under tongue and allow to dissolve for at least30 secs before swallowing cholecalciferol (vitamin D3) [Vitamin D3] 25 mcg (1,000 unit) Capsule 25 mcg PO DAILY Discharge Orders: Discharge Order (Routine); Ordered 04/11/24 Ordered By: Mike Farfan Activity on Discharge: No heavy lifting Stand Alone Forms: Patient Portal Discharge page Print Language: German Care Plan Goals: weight loss Health Concerns: obesity Plan of Treatment: No tub baths, sex or returning to work until discussed at first post op appointment. No exercise, alcohol, tobacco or illegal drug use. Continue to use incentive spirometer hourly while awake. Walk in home for 5- 10 minutes every 2 hours during the first week. Follow all instructions in the bariatric handbook and call with any questions.Discharge Instructions 1. Please call your doctor or come back to the emergency room should any new symptoms arise. 2. You will receive a courtesy call from [facility] 24-48 hours after discharge. 3. Activity: abstain from alcohol, practice limited stair climbing, no bending, no driving, no exercise, no illicit substances, no lifting, no sex, no tub bath, no work. 4. Diet: continue as discussed with Dr. Farfan. 5. Dressing Change/Wound Care: Your incision is covered by clear bandages and guaze underneath. If the area is tender, you may apply an ice pack for short intervals (no more than 20 minutes on, followed by at least 20 minutes off). Do not apply heat. Do not use creams, lotions, or topical antibiotics unless instructed to do so by your surgeon. These can cause infection or allergic reaction. 6. Call your doctor if: - Your temperature exceeds 101.5 F - You experience excessive pain or swelling - You have an unexpected reaction to medication - You have excessive bleeding - You experience continued vomiting/nausea - Your incision begins to separate - Your incision shows signs of infection such as increased redness, swelling, excessive pain, heat, or drainage (light blood or clear fluid is normal) 7. General instructions: No lifting greater than 5 lbs for 1 week and not more than 20lbs the next 3?weeks. No driving until seen at the office in 5-7 days after surgery. If you do not move your bowels in the next 2 days, please tell?Dr. Farfan. Please walk around your home every hour or two to prevent blood clots from forming in your legs. You do not need to wake from sleeping to walk. Please sleep in a bed or couch to prevent kinking at the hips and knees. Please take your incentive spirometer (your lung blood bank laboratory technologist) home with you and use it for the next few days to prevent pneumonia. You may shower, no hot tubs, baths or swimming pools.?Please follow the post op diet instructions you are?given by Dr Farfan? and text me daily at 5-6pm for an update.?If you have any issues or concerns or questions please communicate this to him via text.? The Celebrate shakes have all of the bariatric vitamins you need if you consume these shakes. If you are drinking other protein shakes, you will need to purchase the Celebrate multivitamins and calcium that are available in the hospital gift shop on the first floor of the main hospital.??Do not take anything without first discussing with Dr Farfan. Please make sure you are consuming at least 40 ounces of fluids per day starting the?day AFTER your discharge from the hospital. Always drink 1-2 ml per minute using the 5ml?syringe. If you drink faster you may experience?bloating,?gas pain, burping, nausea or heartburn. In that case please slow down your pace and use the syringe to?understand better the?proper?pace and volume of drinking. Do not hesitate to contact the office with any questions at . The patient's medical history has been reviewed and they are considered low risk for post op DVT and therefore DVT prophylaxis is not considered necessary. Travel after surgery was reviewed. The patient has not disclosed any travel plans during the first 30 days after surgery and they have been advised that within the first 30 days after surgery any bus, plane, train or car travel over 2 hours in duration is contraindicated due to the possibility of developing blood clots from immobility. Any travel, needs to include periods of ambulation of 10 minutes in duration every 2 hours.? The patient was instructed to discuss any plans for travel during this period with their bariatric surgeon. Assessment: stable s/p laparoscopic sleeve gastrectomy Discharge Date/Time: 04/11/24 09:11
[2024-04-10 11:32] LABS: Hematocrit 41.2 % (37.0-47.0); Hemoglobin 13.7 g/dl (12.0-16.0)
[2024-04-10 11:43] LABS: Anion Gap 17 (12-20); Blood Urea Nitrogen 12 mg/dL (9-16); Calcium 9.7 mg/dL (8.4-10.2); Carbon Dioxide 24 mmol/L (22-29); Chloride 104 mmol/L (96-108); Creatinine Clr Calc Pharmacy 81.5; Estimated Glomerular Filt Rate > 60; Glucose Random 114 mg/dL (60-115); Potassium 3.7 mmol/L (3.3-5.1); Sodium 141 mmol/L (135-145)
[2024-04-10] MEDS: HYDROmorphone HCl 0.5 MG/0.5 ML SYRINGE 0.25 MG IVPUSH ×2 (11:53→12:00)
[2024-04-10] MEDS: Lactated Ringers 1,000 ML 100 ML IVCONT ×2 (12:32→19:23)
[2024-04-10] MEDS: Acetaminophen 1,000 MG/100 ML PIGGYBACK 16.7 MG IV ×3 (13:04→23:58)
[2024-04-10] MEDS: ceFAZolin Sodium/Dextrose,Iso 2 GM/50 ML PIGGYBACK IV (14:10)
[2024-04-10] MEDS: Famotidine/PF 20 MG/2 ML VIAL IVPUSH (19:17)
[2024-04-10] MEDS: 0.9 % Sodium Chloride Flush 3 ML SYRINGE IVFLUSH (19:24)
[2024-04-11 03:10] VITALS: BP 145/78; PULSE 72; RESP 16; TEMP 36.1; O2SAT 98
[2024-04-11] MEDS: Lactated Ringers 1,000 ML 100 ML IVCONT (03:24)
[2024-04-11] MEDS: Acetaminophen 1,000 MG/100 ML PIGGYBACK 16.7 MG IV (05:15)
[2024-04-11 06:17] LABS: MANUAL DIFF FLAG NO
[2024-04-11 06:25] LABS: Basophils Percent Auto 0.1 % (0-2); Hematocrit 39.3 % (37.0-47.0); Hemoglobin 12.8 g/dl (12.0-16.0); Imm Gran Abs Auto 0.07 X10*3/uL (0.00-0.03); Imm Gran Pct Auto 0.8 % (0.0-0.4); Lymphocytes Absolute Auto 1.1 X10*3/uL (1.2-4.9); Lymphocytes Percent Auto 13.4 % (20-40); Mean Corpuscular HGB Conc 32.6 g/dl (31.0-35.0); Mean Corpuscular Hemoglobin 28.1 pg (27.0-33.0); Mean Corpuscular Volume 86.4 fL (80.0-98.0); Mean Platelet Volume 11.4 fL (9.4-12.3); Monocytes Absolute Auto 0.3 X10*3/uL (0.1-1.2); Monocytes Percent Auto 3.5 % (2-11); Neutrophils Absolute Auto 6.9 x10*3/uL (2.0-8.3); Neutrophils Percent Auto 82.2 % (45-73); Platelet Count 239 X10*3/uL (160-400); Red Blood Count 4.55 X10*6/uL (4.20-5.50); White Blood Count 8.4 X10*3/uL (4.8-10.8)
[2024-04-11 06:42] LABS: Anion Gap 15 (12-20); Blood Urea Nitrogen 9 mg/dL (9-16); Calcium 9.6 mg/dL (8.4-10.2); Carbon Dioxide 24 mmol/L (22-29); Chloride 105 mmol/L (96-108); Estimated Glomerular Filt Rate > 60; Glucose Random 123 mg/dL (60-115); Sodium 140 mmol/L (135-145)
[2024-04-11 06:58] VITALS: BP 134/79; PULSE 70; RESP 18; TEMP 36.1; O2SAT 100
[2024-04-11] MEDS: 0.9 % Sodium Chloride Flush 3 ML SYRINGE IVFLUSH (07:24)
[2024-04-11] MEDS: Famotidine/PF 20 MG/2 ML VIAL IVPUSH (07:24)
--- NOTE | 2024-04-11 07:36 | HO.POSTANES ---
Post Anesthesia Evaluation Post Anesthesia Evaluation Date of Service: 04/11/24 Vital Signs: Vital Signs Temp Pulse Resp BP Pulse Ox O2 Del Method 04/11/24 06:58 97.0 F 70 18 134/79 100 Room Air 04/11/24 03:10 96.9 F 72 16 145/78 H 98 Room Air 04/10/24 23:39 97.1 F 65 16 132/84 98 CPAP Anesthesia: General Endotracheal-GETA Mental Status: Awake Pain Control: Satisfactory Nausea/Vomiting: None Hydration: Adequate Anesthesia-Related Issues: No Anes. Related Issues
--- NOTE | 2024-04-11 09:13 | MHC.CM.PN ---
PT DISCHARGED PRIOR TO BEING SEEN BY CM PER EMR, PT IS INDEPENDENT AND CARES FOR SISTER WITH DEMENTIA AND SON WITH AUTISM HER AUNT WILL BE PRESENT TO ASSIST HER POST DC PT WAS DISCHARGED HOME WITH NO SERVICES VIA FAMILY TRANSPORT
== END 2024-04-11 09:11 | disposition home or self-care (01) | DRG 620 ==
LOC: HO.SSSA 11:03 → HO.S3 11:07
PROVIDERS: Physician Assistant Surgical; Admitting Provider Surgery; Visit Provider Surgery
PROC: 0DB64Z3 Excision of Stomach, Percutaneous Endoscopic Approach, Vertical (ICD-10-PCS; CPT 43845; principal; 2024-04-10 07:30)
DX: E66.01 Morbid (severe) obesity due to excess calories (principal); Q43.3 Congenital malformations of intestinal fixation; G47.33 Obstructive sleep apnea (adult) (pediatric); J45.909 Unspecified asthma, uncomplicated; M19.90 Unspecified osteoarthritis, unspecified site; E78.5 Hyperlipidemia, unspecified; F41.9 Anxiety disorder, unspecified; Z68.38 Body mass index [BMI] 38.0-38.9, adult; K21.9 Gastro-esophageal reflux disease without esophagitis; K76.0 Fatty (change of) liver, not elsewhere classified; Z79.899 Other long term (current) drug therapy
CPT/HCPCS: 36415; 80048; 80053; 80061; 83036; 83525; 84443; 85014; 85018; 85025; 85610; 85730; 86140; 86850; 86900; 86901; 88304; 88305; 88307; 88342; A4649; C9088; C9145; J0131; J0690; J1100; J1170; J2250; J2405; J2704; J2795; J3010; J7120

== ENCOUNTER → 2024-04-10 06:07 | Outpatient (BNV) | payer MEDICARE, MEDICAID, SELFPAY | PROVIDERS: Admitting Provider Surgery; Visit Provider Surgery | DX: E66.01 Morbid (severe) obesity due to excess calories (principal); Z68.35 Body mass index [BMI] 35.0-35.9, adult; Z98.84 Bariatric surgery status | CPT/HCPCS: 43659; 43775; 99024; 99499 ==

== ENCOUNTER 2024-04-18 13:57 | Outpatient (AMB) | payer MEDICARE, MEDICAID, SELFPAY ==
--- NOTE | 2024-04-18 14:10 | A.OFFVIS_ITS ---
VS Expanded 04/18/24 14:18 BP 119/94 H Blood Pressure Location Rt brachial Blood Pressure Position Sitting Pulse 75 Pulse Source Pulse Oximeter Temp 96.9 F Temperature Source Temporal Artery Scan Pulse Oximetry 98 Oxygen Delivery Method Room Air Height 5 ft 4 in Weight 189 lb 12.8 oz BMI 32.6 Body Fat % 41.7 Body Fat Mass 79.2 Fat Free Mass 110.4 Visceral Fat Rating 11.0 Body Water % 41.2 Body Water Mass 78.0 Muscle Mass/Score 105.0 Basal Metabolic Rate/Score 1,523 Intake Visit Reasons: (OV) PO LSG 04/10/24 Allergies duloxetine [From Cymbalta] Adverse Reaction (Intermediate, Verified 04/18/24 14:20) Gastrointestinal Upset oxycodone [From Percocet] Adverse Reaction (Intermediate, Verified 04/18/24 14:20) Vomiting HPI Comments Details: Patient is a pleasant 59-year-old female who returns to the office today in follow-up. She is approximately 8 days post sleeve gastrectomy performed on 04/10/2024. Tolerating 2 celebrate 4 in 1 shakes with 2 scoops each and 1 celebrate rebuild with 2 scoops. She is drinking approximately 40 oz of fluid daily. She has not yet moved her bowels but denies any significant abdominal pain. [facility] Medical History (Updated 04/10/24 @ 10:42 by Mike Farfan MD) Torticollis Spasmodic torticollis History of tremor IBS (irritable bowel syndrome) Fatty liver Vocal cord dysfunction Unilateral vocal cord paralysis DJD (degenerative joint disease) Arthritis Back pain Seasonal depression Anxiety DJD (degenerative joint disease) Asthma Sleep apnea treated with continuous positive airway pressure (CPAP) Surgical History (Updated 04/18/24 @ 14:20 by Eladia Carbone CMA) S/P laparoscopic sleeve gastrectomy History of esophagogastroduodenoscopy (EGD) (02/14/24) Hx of umbilical hernia repair Hx of rotator cuff surgery Hx of colonoscopy Hx of oral surgery Family History Mother Breast CA Father FH: prostate cancer Social History Household Members: Family Housing: House Are you a primary care program resident to a significant other at home: Yes (sister w/ dementia and son w/ autism-aunt will help post-op) Do you presently have visiting nurse or other home services: Yes Alcohol intake: never Patient Tobacco Use Status: Never used Tobacco Physical Exam Vital Signs: Last Vital Signs Temp 96.9 F 04/18/24 14:18 Pulse 75 04/18/24 14:18 BP 119/94 H 04/18/24 14:18 Pulse Ox 98 04/18/24 14:18 Oxygen Delivery Method Room Air 04/18/24 14:18 BMI result Body Mass Index 32.6 GI Inspection: Yes incision (Clean, dry, intact with very mild bruising noted) Assessment & Plan Assessment & Plan (1) S/P laparoscopic sleeve gastrectomy: Code(s): Z98.84 - Bariatric surgery status Category: Surgical Plan: POD 8 s/p LSG on 04/10/[address] Farfan Weight loss prior to surgery was 20.5 pounds or 9.4 % TBWL. Original weight on 01/18/2024 was 218 pounds and op weight was 20.5 pounds. Be sure to text Dr Farfan exactly 1 week after surgery your weight from your home scale so he can adjust your meal plan. Continue meal plan until f/u w Alejandra in 2 weeks May shower, no submersion in bath for another week Continue abdominal binder with activity and exercise for the next 2 weeks. Exercise prior to surgery was stationary bike and may resume No abdominal exercises for 6 weeks post operatively Will be emailed link to post op video for review Reminded of the pace of drinking, 2 mL per minute, 1 oz/15 min. Medications: New docusate sodium (Colace) 100 mg PO DAILY 60 caps 0RF bisacodyl (Dulcolax (bisacodyl)) [address] DAILY PRN 12 ea 0RF constipation
[2024-04-18 14:18] VITALS: BP 119/94; PULSE 75; TEMP 36.1; O2SAT 98; BMI 32.6
== END 2024-04-18 14:53 | disposition home or self-care (01) ==
PROVIDERS: Visit Provider Physician Assistant Surgical
DX: Z98.84 Bariatric surgery status (principal)
CPT/HCPCS: 99024

== ENCOUNTER → 2024-04-18 13:57 | Outpatient (BNVA) | payer MEDICARE, MEDICAID, SELFPAY | PROVIDERS: Visit Provider Physician Assistant Surgical | DX: Z48.815 Encounter for surgical aftercare following surgery on the digestive system (principal); Z71.3 Dietary counseling and surveillance; Z98.84 Bariatric surgery status | CPT/HCPCS: 99212 ==

== ENCOUNTER 2024-05-08 09:58 | Outpatient (AMB) | payer MEDICARE, MEDICAID, SELFPAY ==
--- NOTE | 2024-05-08 12:07 | A.OFFVIS_ITS ---
VS Expanded 05/08/24 12:13 Height 5 ft 4 in Weight 183 lb BMI 31.4 Intake Visit Reasons: (TV) PO LSG 04/10/24 Allergies duloxetine [From Cymbalta] Adverse Reaction (Intermediate, Verified 04/18/24 14:20) Gastrointestinal Upset oxycodone [From Percocet] Adverse Reaction (Intermediate, Verified 04/18/24 14:20) Vomiting Medication List - Last Reconciled 05/08/24 by JHON Rush albuterol sulfate 90 mcg/actuation (Ventolin HFA) 1 inh inhalation Q4-8H PRN bisacodyl (Dulcolax (bisacodyl)) 10 mg [place] DAILY PRN docusate sodium (Colace) 100 mg PO DAILY pantoprazole 40 mg PO DAILY sucralfate 10 mL PO BID HPI Comments Details: This?is a?59?yo female who is s/p LSG 04/10/2024. Presents for 4 week post op visit. Weight loss of .? Pt feels dehydrated, fatigued. Caring for a sister who may have dementia, as well as a son with autism. Difficulty meeting fluid goals. Was able to have a BM this morning without a laxative. Mentally it's been a lot for me, I'm struggling. Present meal plan includes: 8-10am shake 11am-1:30pm bar 2-4 shake 6-8 shake Exercise routine includes: trying to do PT exercises for shoulder pain didn't really exercise this past week [facility] Medical History (Updated 05/08/24 @ 12:19 by JHON Rush) Obesity Torticollis Spasmodic torticollis History of tremor IBS (irritable bowel syndrome) Fatty liver Vocal cord dysfunction Unilateral vocal cord paralysis DJD (degenerative joint disease) Arthritis Back pain Seasonal depression Anxiety DJD (degenerative joint disease) Asthma Sleep apnea treated with continuous positive airway pressure (CPAP) Surgical History (Updated 04/19/24 @ 00:01 by Selvin Theodore) S/P laparoscopic sleeve gastrectomy History of esophagogastroduodenoscopy (EGD) (02/14/24) Hx of umbilical hernia repair Hx of rotator cuff surgery Hx of colonoscopy Hx of oral surgery Family History Mother Breast CA Father FH: prostate cancer Social History Household Members: Family Housing: House Are you a primary complex care nurse practitioner to a significant other at home: Yes (sister w/dementia and son w/ autism-aunt will help post-op) Do you presently have visiting nurse or other home services: Yes Alcohol intake: never Patient Tobacco Use Status: Never used Tobacco Telehealth Telehealth Telehealth Platform: Telephone Location of provider rendering services: other Location of patient: address on file Patient Identification confirmed using: Name, : Yes Telehealth method: voice only Patient verbally consented to treatment: Yes Patient verbally consented to billing insurance company: Yes Patient informed of any privacy concerns related to visit: Yes Minutes spent on Phone/Video with Pt.: 15 Assessment & Plan Assessment & Plan (1) S/P laparoscopic sleeve gastrectomy: Code(s): Z98.84 - Bariatric surgery status Category: Surgical (2) Obesity: Code(s): E66.9 - Obesity, unspecified Category: Medical Qualifiers: Obesity type: due to excess calories Obesity classification: adult class 2 (BMI 35 - 39.9) Serious obesity comorbidity presence: with serious comorbidity Body mass index: BMI 38.0-38.9 Qualified Code(s): E66.01 - Morbid (severe) obesity due to excess calories; Z68.38 - Body mass index [BMI] 38.0- 38.9, adult Plan Pt bought 8oz bottles to help with hydration. Was told she should continue 2 more weeks on this plan and then will change. Will continue to communicate weekly with Dr. Richard LAI 1 month. I spent a total of 30 minutes reviewing/updating records, examining the patient and counseling the patient on weight management as detailed above.
[2024-05-08 12:13] VITALS: BMI 31.4
== END 2024-05-08 12:27 | disposition home or self-care (01) ==
LOC: HO.HBS 09:58
PROVIDERS: Visit Provider Physician Assistant Surgical
DX: E66.01 Morbid (severe) obesity due to excess calories (principal); Z98.84 Bariatric surgery status; Z68.38 Body mass index [BMI] 38.0-38.9, adult
CPT/HCPCS: 99024

== ENCOUNTER → 2024-05-08 09:58 | Outpatient (BNVA) | payer MEDICARE, MEDICAID, SELFPAY | PROVIDERS: Visit Provider Physician Assistant Surgical ==

== ENCOUNTER 2024-06-20 13:19 | Outpatient (AMB) | payer MEDICARE, MEDICAID, SELFPAY ==
--- NOTE | 2024-06-20 13:04 | MHC.OFFVISWM ---
VS Expanded 06/20/24 13:05 Height 5 ft 4 in Weight 167 lb 13 oz BMI 28.8 Intake Visit Reasons: TELEPHONE PO LSG 04/10/24 Allergies duloxetine [From Cymbalta] Adverse Reaction (Intermediate, Verified 04/18/24 14:20) Gastrointestinal Upset oxycodone [From Percocet] Adverse Reaction (Intermediate, Verified 04/18/24 14:20) Vomiting Medication List - Last Reconciled 06/20/24 by JHON Rush albuterol sulfate 90 mcg/actuation (Ventolin HFA) 1 inh inhalation Q4-8H PRN bisacodyl (Dulcolax (bisacodyl)) 10 mg [place] DAILY PRN docusate sodium (Colace) 100 mg PO DAILY pantoprazole 40 mg PO DAILY sucralfate 10 mL PO BID HPI Comments Details: This?is a?59?yo female who is s/p LSG 04/10/2024. Presents for 2 month post op visit. Weight loss of 15.2lbs since last OV on 05/08/2024.? Caring for a sister who may have dementia, as well as a son with autism. Having hand surgery tomorrow- holding all her meds x 10 days prior to this. Taking Dulcolax once a week to help with constipation. Present meal plan includes: supposed to be doing a shake from 5-7am, not taking in because she isn't waking up until 7am is supposed to do 2 shakes, 3 bars, 2 forks protein/2 forks veg on Celebrate MVI Exercise routine includes: trying to do PT exercises for shoulder pain [facility] Medical History (Updated 06/20/24 @ 13:11 by JHON Rush) Obesity Torticollis Spasmodic torticollis History of tremor IBS (irritable bowel syndrome) Fatty liver Vocal cord dysfunction Unilateral vocal cord paralysis DJD (degenerative joint disease) Arthritis Back pain Seasonal depression Anxiety DJD (degenerative joint disease) Asthma Sleep apnea treated with continuous positive airway pressure (CPAP) Surgical History (Updated 04/19/24 @ 00:01 by Selvin Theodore) S/P laparoscopic sleeve gastrectomy History of esophagogastroduodenoscopy (EGD) (02/14/24) Hx of umbilical hernia repair Hx of rotator cuff surgery Hx of colonoscopy Hx of oral surgery Family History Mother Breast CA Father FH: prostate cancer Social History Household Members: Family Housing: House Are you a primary assisted living care manager to a significant other at home: Yes (sister w/dementia and son w/ autism-aunt will help post-op) Do you presently have visiting nurse or other home services: Yes Alcohol intake: never Patient Tobacco Use Status: Never used Tobacco Telehealth Telehealth Telehealth Platform: Telephone Location of provider rendering services: other Location of patient: address on file Patient Identification confirmed using: Name, : Yes Telehealth method: voice only Patient verbally consented to treatment: Yes Patient verbally consented to billing insurance company: Yes Patient informed of any privacy concerns related to visit: Yes Minutes spent on Phone/Video with Pt.: 16 Assessment & Plan Assessment & Plan (1) S/P laparoscopic sleeve gastrectomy: Code(s): Z98.84 - Bariatric surgery status Category: Surgical (2) Overweight: Code(s): E66.3 - Overweight Category: Medical Plan Pt to continue meal plan per Dr Soto, I encouraged her to let him know she is having difficulty taking in first shake and meal plan can be adjusted. Added fiber supplement to help with constipation. RTC 6 weeks. I spent a total of 30 minutes reviewing/updating records, examining the patient and counseling the patient on weight management as detailed above. Medications: New inulin (Fiber Gummies) 2 grams PO DAILY 90 tabs 3RF
[2024-06-20 13:05] VITALS: BMI 28.8
== END 2024-06-20 15:31 | disposition home or self-care (01) ==
LOC: HO.HBS 13:19
PROVIDERS: Visit Provider Physician Assistant Surgical
DX: E66.3 Overweight (principal); Z68.28 Body mass index [BMI] 28.0-28.9, adult; Z98.84 Bariatric surgery status
CPT/HCPCS: 99024

== ENCOUNTER → 2024-06-20 13:19 | Outpatient (BNVA) | payer MEDICARE, MEDICAID, SELFPAY | PROVIDERS: Visit Provider Physician Assistant Surgical ==

== ENCOUNTER 2024-07-23 13:38 | Outpatient (AMB) | payer MEDICARE, MEDICAID, SELFPAY ==
--- NOTE | 2024-07-23 13:31 | A.OFFVIS_ITS ---
VS Expanded 07/23/24 13:32 Height 5 ft 4 in Weight 156 lb BMI 26.8 Intake Visit Reasons: TELEPHONE PO LSG 04/10/24 Allergies duloxetine [From Cymbalta] Adverse Reaction (Intermediate, Verified 04/18/24 14:20) Gastrointestinal Upset oxycodone [From Percocet] Adverse Reaction (Intermediate, Verified 04/18/24 14:20) Vomiting Medication List - Last Reconciled 07/23/24 by JHON Rush albuterol sulfate 90 mcg/actuation (Ventolin HFA) 1 inh inhalation Q4-8H PRN bisacodyl (Dulcolax (bisacodyl)) 10 mg [place] DAILY PRN docusate sodium (Colace) 100 mg PO DAILY inulin (Fiber Gummies) 2 grams PO DAILY HPI Comments Details: This?is a?59?yo female who is s/p LSG 04/10/2024. Presents for 3 month post op visit. Weight loss of 11.8 lbs since last OV on 06/20/2024.? Caring for a sister who may have dementia, as well as a son with autism. Had hand surgery last month. Present meal plan includes: is supposed to do 2 shakes, 2 bars, 2 forks protein/2 forks veg has the option of a 3rd bar if hungry in evening but usually doesn't take on Celebrate MVI Exercise routine includes: finoshed PT exercises for shoulder pain Pt reports excess skin of upper thighs, noticed odor and has been using body deodorant in the skin folds. She also experiences this with her arms but to a lesser extent. ON LICENSE OF [facility] Medical History (Updated 06/20/24 @ 13:11 by JHON Rush) Obesity Torticollis Spasmodic torticollis History of tremor IBS (irritable bowel syndrome) Fatty liver Vocal cord dysfunction Unilateral vocal cord paralysis DJD (degenerative joint disease) Arthritis Back pain Seasonal depression Anxiety DJD (degenerative joint disease) Asthma Sleep apnea treated with continuous positive airway pressure (CPAP) Surgical History (Updated 04/19/24 @ 00:01 by Selvin Theodore) S/P laparoscopic sleeve gastrectomy History of esophagogastroduodenoscopy (EGD) (02/14/24) Hx of umbilical hernia repair Hx of rotator cuff surgery Hx of colonoscopy Hx of oral surgery Family History Mother Breast CA Father FH: prostate cancer Social History Household Members: Family Housing: House Are you a primary day care assistant to a significant other at home: Yes (sister w/dementia and son w/ autism-aunt will help post-op) Do you presently have visiting nurse or other home services: Yes Alcohol intake: never Patient Tobacco Use Status: Never used Tobacco Physical Exam Vital Signs: BMI result Body Mass Index 26.8 Telehealth Telehealth Telehealth Platform: Telephone Location of provider rendering services: other Location of patient: address on file Patient Identification confirmed using: Name, : Yes Telehealth method: voice only Patient verbally consented to treatment: Yes Patient verbally consented to billing insurance company: Yes Patient informed of any privacy concerns related to visit: Yes Minutes spent on Phone/Video with Pt.: 16 Assessment & Plan Assessment & Plan (1) Overweight: Code(s): E66.3 - Overweight Category: Medical (2) S/P laparoscopic sleeve gastrectomy: Code(s): Z98.84 - Bariatric surgery status Category: Surgical Plan Finished PPI/carafate. Will continue meal plan per Dr Ramos Discussed requirements for skin removal surgery. RTC 6-8 weeks. I spent a total of 30 minutes reviewing/updating records, examining the patient and counseling the patient on weight management as detailed above.
[2024-07-23 13:32] VITALS: BMI 26.8
== END 2024-07-23 13:52 | disposition home or self-care (01) ==
LOC: HO.HBS 13:38
PROVIDERS: Visit Provider Physician Assistant Surgical
DX: E66.3 Overweight (principal); Z68.26 Body mass index [BMI] 26.0-26.9, adult; Z90.3 Acquired absence of stomach [part of]; Z98.84 Bariatric surgery status
CPT/HCPCS: 98967

== ENCOUNTER → 2024-07-23 13:38 | Outpatient (BNVA) | payer MEDICARE, MEDICAID, SELFPAY | PROVIDERS: Visit Provider Physician Assistant Surgical ==

== ENCOUNTER 2024-09-04 12:48 | Outpatient (AMB) | payer MEDICARE, MEDICAID, SELFPAY ==
--- NOTE | 2024-09-04 12:33 | MHC.OFFVISWM ---
VS Expanded 09/04/24 12:40 Height 5 ft 4 in Weight 133 lb 4 oz BMI 22.9 Intake Visit Reasons: TELEPHONE PO LSG 04/10/24 Allergies duloxetine [From Cymbalta] Adverse Reaction (Intermediate, Verified 04/18/24 14:20) Gastrointestinal Upset oxycodone [From Percocet] Adverse Reaction (Intermediate, Verified 04/18/24 14:20) Vomiting Medication List - Last Reconciled 09/04/24 by JHON Rush albuterol sulfate 90 mcg/actuation (Ventolin HFA) 1 inh inhalation Q4-8H PRN bisacodyl (Dulcolax (bisacodyl)) 10 mg [place] DAILY PRN docusate sodium (Colace) 100 mg PO DAILY inulin (Fiber Gummies) 2 grams PO DAILY HPI Comments Details: This?is a?59?yo female who is s/p LSG 04/10/2024. Presents for 5 month post op visit. Weight at last visit on 07/23/2024 was 156 pounds with a BMI of 26.8, weight today is 138.4 pounds, representing a 17.6 pound weight loss with a BMI today of 22.9.? No complaints of nausea, emesis, abdominal pain or reflux, or constipation. Pt has been sick for the past week, on ZPac now, using an inhaler. Was not eating as much this week due to illness. Present meal plan includes: is supposed to do 2 shakes, 2 bars, 2 forks protein/2 forks veg has the option of a 3rd bar if hungry in evening but usually doesn't take on Celebrate MVI Exercise routine includes: finished PT exercises for shoulder pain started [employer] videos for upper body strengthening, indoor walking Pt reports excess skin of upper thighs, noticed odor and has been using body deodorant in the skin folds. She also experiences this with her arms but to a lesser extent. Have you been diagnosed with reflux (GERD)? Score 0-5: 0=no symptoms, 1=noticeable but not bothersome (slight or occasional), 2=noticeable, bothersome but not daily, 3=bothersome and daily, 4=affects daily activities, 5=incapacitating, unable to do daily activities How bad is the heartburn: 0 Heartburn when lying down: 0 Heartburn when standing up: 0 Heartburn after meals: 0 Does heartburn change your diet: 0 Does heartburn wake you up from sleep: 0 Do you have difficulty swallowin Do you have pain with swallowin If you take medication for reflux, does this affect your daily life: 0 Total score: 0 PFSH Medical History (Updated 06/20/24 @ 13:11 by JHON Rush) Obesity Torticollis Spasmodic torticollis History of tremor IBS (irritable bowel syndrome) Fatty liver Vocal cord dysfunction Unilateral vocal cord paralysis DJD (degenerative joint disease) Arthritis Back pain Seasonal depression Anxiety DJD (degenerative joint disease) Asthma Sleep apnea treated with continuous positive airway pressure (CPAP) Surgical History (Updated 04/19/24 @ 00:01 by Selvin Theodore) S/P laparoscopic sleeve gastrectomy History of esophagogastroduodenoscopy (EGD) (02/14/24) Hx of umbilical hernia repair Hx of rotator cuff surgery Hx of colonoscopy Hx of oral surgery Family History Mother Breast CA Father FH: prostate cancer Social History Household Members: Family Housing: House Are you a primary administrator health care facility to a significant other at home: Yes (sister w/dementia and son w/ autism-aunt will help post-op) Do you presently have visiting nurse or other home services: Yes Alcohol intake: never Patient Tobacco Use Status: Never used Tobacco Telehealth Telehealth Telehealth Platform: Telephone Location of provider rendering services: other Location of patient: address on file Patient Identification confirmed using: Name, : Yes Telehealth method: voice only Patient verbally consented to treatment: Yes Patient verbally consented to billing insurance company: Yes Patient informed of any privacy concerns related to visit: Yes Minutes spent on Phone/Video with Pt.: 16 Assessment & Plan Assessment & Plan (1) S/P laparoscopic sleeve gastrectomy: Code(s): Z98.84 - Bariatric surgery status Category: Surgical Plan Pt to continue meal plan per Dr Soto, goal was 136lbs. She is interested in what a maintenance meal plan will look like, will discuss with him at next checkin in 1 week. Plans to resume exercise as she recovers from illness. Ultimately she would like to d/c shakes and is fine with using bars spinning doffer. Sent chewable vitamin recommendations or suggested pt mix capsule granules into drink as she has trouble tolerating large pills. Labs ordered in anticipation of 6 weeks. RTC 6 weeks. I spent a total of 30 minutes reviewing/updating records, examining the patient and counseling the patient on weight management as detailed above. Orders: Orders Lipid Panel Today Z98.84 - Bariatric surgery status IRON PROFILE Today Z98.84 - Bariatric surgery status Comprehensive Met. Panel Today Z98.84 - Bariatric surgery status Zinc Today Z98.84 - Bariatric surgery status Vitamin D 25-OH Total Today Z98.84 - Bariatric surgery status Insulin Today Z98.84 - Bariatric surgery status Hemoglobin A1c Today Z98.84 - Bariatric surgery status Complete Blood Count Auto Diff Today Z98.84 - Bariatric surgery status Vitamin B12 and Folate Today Z98.84 - Bariatric surgery status C Reactive Protein Today Z98.84 - Bariatric surgery status Vitamin B1 Today Z98.84 - Bariatric surgery status Vitamin A Today Z98.84 - Bariatric surgery status TSH reflex Free T4 Today Z98.84 - Bariatric surgery status Ferritin Today Z98.84 - Bariatric surgery status
[2024-09-04 12:40] VITALS: BMI 22.9
--- OUTSIDE RECORDS SUMMARY | 2024-09-04 14:34 | XMS_ITS | Continuity of Care Document ---
Author Organization [facility], [place] [facility] 2nd floor Address [address] [place] [address] Care Team Providers Care Regulatory Manager Name Role Phone KIERSTEN VIZCAINO Primary Care Provider Assessment No assessment recorded. Plan of Treatment Reminders Order Date Submit Date Provider Last Modified By Organization Details Last Modified Time Details Appointments PT INITIAL EVAL 2024 12:30P M Escobar Hampton, PT Not available Not available Not available PT FOLLOW-U P 2024 07:30A M Hao Morfin , AT Not available Not available Not available PT FOLLOW-U P 2024 01:30P M Hao Morfin , AT Not available Not available Not available PT FOLLOW-U P 2024 07:30A M Hao Morfin , AT Not available Not available Not available PT FOLLOW-U P 2024 01:00P M Hao Morfin , AT Not available Not available Not available PT FOLLOW-U P 2024 07:30A M Hao Morfin , AT Not available Not available Not available PT FOLLOW-U P 2024 11:30A M Hao Morfin , AT Not available Not available Not available PT FOLLOW-U P 2024 07:30A M Hao Morfin , AT Not available Not available Not available PT FOLLOW-U P 2024 11:30A M Hao Morfin , AT Not available Not available Not available PT FOLLOW-U P 2024 07:30A M Hao Morfin , AT Not available Not available Not available PT FOLLOW-U P 2024 11:00A M Hao Morfin , AT Not available Not available Not available Lab None recorded . Referral None recorded . Procedures None recorded . Surgeries None recorded . Imaging XR, hip + pelvis, unilater al, 2 or 3 view - room 203 lt hip 2v cw 2024 025 [email or web address] [facility] [address], [place], [address], 08/23/2024 12:47:12 Medication Orders None recorded . Patient TargetsNo targets recorded. Patient InstructionsNo instructions recorded. Reason for Referral None Reported. Results Created Date Observation Date Name Description Value Unit Range Abnormal Flag Note LastModifiedBy Organization Detail LastModifiedTime 08/13/20 24 08/13/2024 XR, knee, 4 or more view [email or web address] ?Encry pted=s hAaTro YD8dLq bEUv6g %2BXZw aYqtaq 0bqfl% 2Fg9IQ a4ajBk vP9nXo QUaueC m3YtLR FvZlgJ JJ8mAn HZtai3 7r3097 AC0Kqb nWFUqa hKiQtr MwF INTERFACE [facility] [address], [place], [address], 08/13/2024 08:32:45 08/13/20 24 08/13/2024 XR, knee, 4 or more view [email or web address] ?Encry pted=s hAaTro YD8dLq bEUv6g %2BXZw aYqtaq 0bqfl% 2Fg9IQ a4ajBk vP9nXo QUaueC m3YtLR FvZlgJ JJ8mAn HZtai3 4t7482 AC0Kqb nWFUqa hKiQtr MwF INTERFACE [facility] [address], [place], [address], 08/13/2024 08:32:47 01/10/08/23/2024 XR, hip + pelvi s, unila teral , 2 or 3 view [email or web address] ?Encry pted=s hAaTro YD8dLq bEUv6g %2BXZw aYqtaq 0bqfl% 2Fg9IQ a4ajBk vP9nXo QUaueC m3YtLR FvZlgJ JJ8mAn HZtai3 6b1535 AC0Kqb 3%2BAV aqgKiQ trMwF INTERFACE [facility] [address], [place], [address], 08/23/2024 10:14:39 08/23/19 25 08/23/2024 XR, hip + pelvi s, unila teral , 2 or 3 view [email or web address] ?Encry pted=s hAaTro YD8dLq bEUv6g %2BXZw aYqtaq 0bqfl% 2Fg9IQ a4ajBk vP9nXo QUaueC m3YtLR FvZlgJ JJ8mAn HZtai3 3e8154 AC0Kqb 3%2BAV aqgKiQ trMwF INTERFACE [facility] [address], [place], [address], 08/23/2024 10:14:41 Result Notes None recorded. Problems Name Problem SNOMED Code Status Onset Date Resolution Date Notes Provider Name and Address Organization Details Recorded Time No complaint s 718994875 Active Status: 'I'; Not Available [facility] 4 09:19:39 Trochante angel bursitis of left hip 217081767028 103 Active 2024 egypt jonel cabral [place] - [facility] 5 10:08:25 Sprain of tibiofibu lar ligament of left ankle 798531815946 35378 Active 2016 Problem Code: S93.432A ; Problem Code Type: ICD-10; Status: 'A'; Not Available [facility] 4 11:42:26 Sprain of left ankle 301560348498 92101 Active 2016 Problem Code: S93.492A ; Problem Code Type: ICD-10; Status: 'A'; Not Available [facility] 4 11:42:26 Sprain of calcaneof ibular ligament 30491186 Active 2016 Problem Code: S93.412A ; Problem Code Type: ICD-10; Status: 'A'; Not Available [facility] 4 11:42:27 Problem Notes None recorded. Procedures Surgical History Date Name Laterality Status Provider Name and Address Organization Details Recorded Time 4 Hip Kenalog 1cc Injection, L/R completed Meghana Lin PA-C [address], [place], [address], [facility] 08/13/2024 09:09:12 Imaging Results None recorded. Procedure Notes None recorded. Medical Equipment None Reported. Allergies Allergen ID Allergen Name Allergen Category Reaction Reaction Severity Criticality Documentation Date Start Date Code Code System Note Provider Name and Address Organization Details Recorded Time 239508 Cymbalta medicatio n Not available Not available Not available 10/16/20232020 47678 4 RxNorm Aller gyNam e: 'Cymb jarrod Cpep' ; Aller gyRea ction : 'stom ach pain' ; Not Available [facility] 4 15:27:26 796361 Effexor medicatio n Not available Not available Not available 08/13/2024 46869 2 RxNorm Rita cabral [facility] 4 08:22:24 661003 acetamino phen / oxycodone medicatio n Not available Not available Not available 08/13/2024 58312 3 RxNorm Rita cabral [facility] 4 08:22:39 Medications Name Sig Start Date Stop Date Status Note LastModified by Organization Details LastModified Time acetaminoph en 325 mg tablet TAKE 2 TABLETS BY MOUTH EVERY 6 HOURS NEEDED FOR FEVER 08/13 completed Not Available Not Available Not Available atorvastati n 20 mg tablet TAKE 1 TABLET BY MOUTH EVERY DAY 08/13 completed Not Available Not Available Not Available sucralfate 100 mg/mL oral suspension TAKE 10ML BY MOUTH TWICE A DAY 08/13 completed Not Available Not Available Not Available vitamin A 3,000 mcg (10,000 unit) capsule TAKE 1 TABLET BY MOUTH EVERY DAY 08/13 completed Not Available Not Available Not Available bisacodyl 10 mg rectal suppository UNWRAP AND INSERT 1 SUPPOSITO RY RECTALLY DAILY NEEDED CONSTIPAT ION 08/13 completed Not Available Not Available Not Available pantoprazol e 40 mg tablet,casey yed release TAKE 1 TABLET BY MOUTH EVERY DAY 08/13 completed Not Available Not Available Not Available docusate sodium 100 mg capsule TAKE 1 CAPSULE (100MG) BY MOUTH DAILY 08/13 completed Not Available Not Available Not Available cyanocobala min (vit B-12) 1,[address] 1 TABLET UNDER TONGUE AND ALLOW TO DISSOLVE FOR AT LEAST30 SECS BEFORE SWALLOWIN G *OTC NC* 08/13 completed Not Available Not Available Not Available albuterol sulfate HFA 90 mcg/actuati on aerosol inhaler INHALE 1 PUFF INTO LUNGS 4 TIMES A DAY NEEDED FOR WHEEZING active Not Available Not Available No t Available ondansetron 4 mg disintegrat ing tablet TAKE 1 TABLET ORALLY EVERY 12 HOURS NEEEDED IF YOU HAVE NAUSEA AND VOMITING 08/13 completed Not Available Not Available Not Available ipratropium bromide 21 mcg (0.03 %) nasal spray 1 SPRAY EACH NOSTRIL TWICE DAILY NEEDED FOR NASAL CONGESTIO N active Not Available Not Available No t Available nitrofurant oin monohydrate /macrocryst als 100 mg capsule TAKE 1 CAPSULE BY MOUTH TWICE A DAY FOR 5 DAYS 08/13 completed Not Available Not Available Not Available hyoscyamine sulfate Hyoscyami ne Sulfate 0.125MG Tablet 01/17 completed Statu s: 'Disc ontin ued'; Not Available Not Available Not Available Gavilax 17 gram/dose oral powder MIX 7 CUPS IN 8 OUNCES OF BEVERAGE AND TAKE BY MOUTH ON 04/08/24, AND ANOTHER 7 CUPS ON 04/09 completed Not Available Not Available Not Available Vitals Date Recorded Body height Body mass index (BMI) Body weight Provider Name and Address Organization Details Last Updated DateTime 08/23/2024 165.1 cm 23.8 kg/m2 28057.71 g ailyn jonel [place] - [facility] 08/23/2024 10:06:45 Social History None recorded. Functional Status None recorded. Mental Status None recorded. Family History Nothing Reported. Medical History No medical history recorded. Gynecological HistoryNo gynecological history recorded. Obstetrics History GPAL:G 0 P 0 0 0 0 Past Encounters Encounter ID Performer Location Encounter Start Date Encounter Closed Date Diagnosis/Indication Diagnosis SNOMED-CT Code Diagnosis ICD10 Code Diagnosis Note [id number] Meghana Lin PA-C [facility] [address] [place] [address] 08/13/2024 08:14:56 08/28/2024 09:43:07 Pain of left knee region 6091862210 26768 M25.562 Trochanter ic bursitis of left hip 0346255364 30306 M70.62 Osteoarthr itis of left knee joint 0949032177 86603 M17.12 [id number] [facility] [address] [place] [address] 08/23/2024 09:40:11 08/25/2024 22:16:38 Trochanteric bursitis of left hip 1578858207 24370 M70.62 Health Concerns Section Related Observation LastModified by Organization Detai ls LastModified Time None Recorded Concern Status LastModified by Organization Details LastModified Time None Recorded Payers Encounter Date Sequence Insurance Name Policy Number Policy [employer] Covered Member ID [employer] Member ID Guarantor Name 08/23/2024 2 [place] Ruthblanca Stallworth [id number] Ruth Stallworth 08/23/2024 1 [place] [employer] Ruth Fidencio Basim [id number] Ruth Stallworth Notes Date Note Type Note Provider Name and Address Organization Details Recorded Time 08/23/2024 text/html I am working und er the supervision of Dr. Guzamn who was available but who did not see the patient. HPI: Ruth presents to the office today for a recheck of her left hip. I had seen her at the end of July for her left knee and at that time it was discovered she had left hip bursitis. A cortisone injection had been administered, which she found to be extremely helpful. She only notices a twinge of pain over the lateral hip periodically. She is pleased with the progress she has made in such a short time. Denies any groin pain or difficulty weightbearing. PMH/PSH/MEDS/ALL/FMH/ SOC HX/ROS are reviewed in detail per my medical intake sheet. General Exam: Vital signs are as noted below Mental status: Alert and lucid. Normal insight, affect and grooming. 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 No spasticity or clonus noted. EXAMINATION: The patient is well appearing and in no apparent distress. Alert and oriented x3. Gait is antalgic. {{Right hip reveals Left hip reveals* Bilateral hips reveal}} no obvious deformity upon inspection. No edema, erythema, ecchymosis, or lesions. Neurovascularly intact. Minimal tenderness present over the greater trochanter. ROM full in all planes. Negative impingement sign, Rah's, Stinchfield test, and straight leg raise. No instability. 5/5 strength. Calf/leg compartments soft and compressible. Contralateral hip reveals no obvious deformity upon inspection. No edema, erythema, ecchymosis, or lesions. Neurovascularly intact. No localized tenderness. ROM full in all planes. Negative impingement sign, Rah's, Stinchfield test, and straight leg raise. No instability. 5/5 strength. Calf/leg compartments soft and compressible. Lumbar spine reveals no obvious deformities upon inspection. No edema, erythema, ecchymosis, or lesions. ROM is full and pain free. Straight leg raise is negative in the sitting and supine position. No focal neurologic deficits in the lower extremities. X-rays ordered, obtained and reviewed at [facility] today include an AP pelvis and lateral view of {{right hip left hip* bilateral hips}}. Images reveal mild degenerative changes. No acute fracture or lesion. IMPRESSION: {{Right Left* Bilater al}} hip greater trochanteric bursitis and mild osteoarthritis PLAN: The patient has responded favorably to her recent cortisone injection. She is scheduled to start outpatient therapy. I encouraged her to keep up with the home exercise program. A repeat cortisone injection can be given in the future if her hip pain increases. She prefers to follow up as needed. ALl questions answered. Meghana Lin PA-C [address], [place], [address], [facility] - [facility] 08/25/2024 22:16:36 OBGyn Episode No OBEpisode recorded.
--- OUTSIDE RECORDS SUMMARY | 2024-09-04 14:34 | XMS_ITS | Continuity of Care Document ---
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 Plan of Treatment Reminders Order Date Submit Date Provider Last Modified By Organization Details Last Modified Time Details Appointments PT INITIAL EVAL 2024 12:30P M Escobar Hampton, PT Not available Not available Not available PT FOLLOW-UP 2024 07:30A M Hao Morfin , AT Not available Not available Not available PT FOLLOW-UP 2024 01:30P M Hao Morfin , AT Not available Not available Not available PT FOLLOW-UP 2024 07:30A M Hao Morfin , AT Not available Not available Not available PT FOLLOW-UP 2024 01:00P M Hao Morfin , AT Not available Not available Not available PT FOLLOW-UP 2024 07:30A M Hao Morfin , AT Not available Not available Not available PT FOLLOW-UP 2024 11:30A M Hao Morfin , AT Not available Not available Not available PT FOLLOW-UP 2024 07:30A M Hao Morfin , AT Not available Not available Not available PT FOLLOW-UP 2024 11:30A M Hao Morfin , AT Not available Not available Not available PT FOLLOW-UP 2024 07:30A M Hao Morfin , AT Not available Not available Not available PT FOLLOW-UP 2024 11:00A M Hao Morfin , AT Not available Not available Not available Lab None recorded. Referral physical therapist referral - (THIS PRESCRIPT ION EXPIRES 30 DAYS FROM DATE LISTED)[facility] CD-10: M70.62(Le ft)1. Core stabiliza tion, hip abductor strengthe mihaela with focus on eccentric strengthe mihaela and balance training. 2. Soft tissue modalitie s including foam rollers as needed.3. Home exercise and stretchin g program.A llow 2-3 visits a week for 6 weeks.Com pleted by: marcella 2023 024 [email or web address] Not available 08/28/2024 09:43:08 Procedures None recorded. Surgeries None recorded. Imaging XR, knee, 4 or more view - 205, 4 views of left knee. 2023 024 [facility], [address] [facility] [address] [facility] [address], [address], [place], [address], 08/28/2024 09:43:08 Medication Orders None recorded. Patient TargetsNo targets recorded. Patient Instructions Encounter Date Encounter Id Patient Instructions Last Modified By Organization Details Last Modified Time 08/13/[id number] trochanteric bursitis: exercises Not available 08/13/2024 09:01:29 hip bursitis: exercises Not available 08/13/2024 09:01:29 Reason for Referral Physical Therapist Referral for Trochanteric bursitis of left hip (THIS PRESCRIPTION EXPIRES 30 DAYS FROM DATE LISTED)PHYSICAL THERAPY REFERRALICD-10: M70.62(Left)1. Core stabilization, hip abductor strengthening with focus on eccentric strengthening and balance training.2. Soft tissue modalities including foam rollers as needed.3. Home exercise and stretching program.Allow 2-3 visits a week for 6 weeks.Completed by: marcella Referring Physician: Meghana Lin, Orthopedic Surgery, [id number] Encounter Date: 08/13/2024 Results Created Date Observation Date Name Description Value Unit Range Abnormal Flag Note LastModifiedBy Organization Detail LastModifiedTime 08/13/20 24 08/13/2024 XR, knee, 4 or more view [email or web address] ?Encry pted=s hAaTro YD8dLq bEUv6g %2BXZw aYqtaq 0bqfl% 2Fg9IQ a4ajBk vP9nXo QUaueC m3YtLR FvZlgJ JJ8mAn HZtai3 7q8744 AC0Kqb nWFUqa hKiQtr MwF INTERFACE [facility] [address], [place], [address], 08/13/2024 08:32:45 08/13/20 24 08/13/2024 XR, knee, 4 or more view [email or web address] ?Encry pted=s hAaTro YD8dLq bEUv6g %2BXZw aYqtaq 0bqfl% 2Fg9IQ a4ajBk vP9nXo QUaueC m3YtLR FvZlgJ JJ8mAn HZtai3 1l9768 AC0Kqb nWFUqa hKiQtr MwF INTERFACE [facility] [address], [place], [address], 08/13/2024 08:32:47 08/23/19 25 08/23/2024 XR, hip + pelvi s, unila teral , 2 or 3 view [email or web address] ?Encry pted=s hAaTro YD8dLq bEUv6g %2BXZw aYqtaq 0bqfl% 2Fg9IQ a4ajBk vP9nXo QUaueC m3YtLR FvZlgJ JJ8mAn HZtai3 3r3602 AC0Kqb 3%2BAV aqgKiQ trMwF INTERFACE [facility] [address], [place], [address], 08/23/2024 10:14:39 08/23/19 25 08/23/2024 XR, hip + pelvi s, unila teral , 2 or 3 view [email or web address] ?Encry pted=s hAaTro YD8dLq bEUv6g %2BXZw aYqtaq 0bqfl% 2Fg9IQ a4ajBk vP9nXo QUaueC m3YtLR FvZlgJ JJ8mAn HZtai3 4x3009 AC0Kqb 3%2BAV aqgKiQ trMwF INTERFACE [facility] [address], [place], [address], 08/23/2024 10:14:41 Result Notes None recorded. Problems Name Problem SNOMED Code Status Onset Date Resolution Date Notes Provider Name and Address Organization Details Recorded Time No complaint s 528025626 Active Status: 'I'; Not Available formerly [facility] 4 09:19:39 Trochante angel bursitis of left hip 320721866107 103 Active 2024 ailyn cabral [facility] 5 10:08:25 Sprain of tibiofibu lar ligament of left ankle 793177741910 51644 Active 2016 Problem Code: S93.432A ; Problem Code Type: ICD-10; Status: 'A'; Not Available formerly [facility] 4 11:42:26 Sprain of left ankle 090084517843 26456 Active 2016 Problem Code: S93.492A ; Problem Code Type: ICD-10; Status: 'A'; Not Available formerly [facility] 4 11:42:26 Sprain of calcaneof ibular ligament 99977452 Active 2016 Problem Code: S93.412A ; Problem Code Type: ICD-10; Status: 'A'; Not Available formerly [facility] 4 11:42:27 Problem Notes None recorded. Procedures Surgical History Date Name Laterality Status Provider Name and Address Organization Details Recorded Time 4 Hip Kenalog 1cc Injection, L/R completed Meghana Lin PA-C [address], [place], [address], [facility] - [facility] 08/13/2024 09:09:12 Imaging Results None recorded. Procedure Notes None recorded. Medical Equipment None Reported. Allergies Allergen ID Allergen Name Allergen Category Reaction Reaction Severity Criticality Documentation Date Start Date Code Code System Note Provider Name and Address Organization Details Recorded Time 676738 Cymbalta medicatio n Not available Not available Not available 10/16/20232020 54633 4 RxNorm Aller gyNam e: 'Cymb jarrod Cpep' ; Aller gyRea ction : 'stom ach pain' ; [facility] 4 15:27:26 815620 Effexor medicatio n Not available Not available Not available 08/13/2024 82103 2 RxNorm Rita cabral [facility] 4 08:22:24 774548 acetamino phen / oxycodone medicatio n Not available Not available Not available 08/13/2024 04583 3 RxNorm Rita cabral [facility] 4 08:22:39 Medications Name Sig Start Date [...] Available Not Available Vitals Date Recorded Body weight Body mass index (BMI) Body height Provider Name and Address Organization Details Last Updated DateTime 08/13/2024 792655.28 g 37.4 kg/m2 165.1 cm Rita Fong [place] - [facility] 08/13/2024 08:22:11 Social History None recorded. Functional Status None recorded. Mental Status None recorded. Family History Nothing Reported. Medical History No medical history recorded. Gynecological HistoryNo gynecological history recorded. Obstetrics History GPAL:G 0 P 0 0 0 0 Past Encounters Encounter ID Performer Location Encounter Start Date Encounter Closed Date Diagnosis/Indication Diagnosis SNOMED-CT Code Diagnosis ICD10 Code Diagnosis Note [id number] [facility] 2nd floor [address] [place] [address] 08/13/2024 08:14:56 08/28/2024 09:43:07 Pain of left knee region 5822685075 22034 M25.562 Trochanter ic bursitis of left hip 9345924708 26113 M70.62 Osteoarthr itis of left knee joint 8619914816 00838 M17.12 Health Concerns Section Related Observation LastModified by Organization Detai ls LastModified Time None Recorded Concern Status LastModified by Organization Details LastModified Time None Recorded Payers Encounter Date Sequence Insurance Name Policy Number Policy [employer] Covered Member ID [employer] Member ID Guarantor Name 08/13/2024 2 [place] [facility] Ruth Stallworth [id number] Ruth Nicolas Stallworth 08/13/2024 1 [place]: [employer] Ruth Stallworth [id number] Ruth Stallworth Notes Date Note Type Note Provider Name and Address Organization Details Recorded Time 08/13/2024 text/html I am seeing the patient today under the supervision of Dr. Guzman who was available but who did not see the patient. HPI: Fran presents to the office today for an evaluation of her left knee. She indicates she recently developed lateral knee pain without a precipitating event. Aspect of the knee which radiates up the IT band towards her hip. Symptoms are most significant with sleeping at night, prolonged sitting, from a seated position. She denies any instability of the knee. She has tried taking nocf-doh-vtyuxrd medication for her pain. She is here today for treatment recommendations. PMH/PSH/MEDS/ALL/FMH/ SOC HX/ROS are reviewed in detail per my medical intake sheet. General Exam: Vital signs are as noted below Mental status: Alert and lucid. Normal insight, affect and grooming. 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 No spasticity or clonus noted. EXAMINATION: The patient is well appearing and in no apparent distress. Alert and oriented x3. Gait is antalgic. {{Right knee reveals Left knee reveals* Bilateral knees reveal}} {{varus valgus no*}} deformity upon inspection. No joint effusion, edema, erythema, ecchymosis, or lesions. Neurovascularly intact. Tenderness present along the distal IT band. ROM is from 0-130 degrees. No crepitus noted. Stability intact with anterior, posterior, and varus/valgus stress at both 0 and 30 degrees of flexion. Special testing negative including Steinmann's, flexion pinch, and patella grind maneuvers. 5/5 strength. Calf/leg compartments soft and compressible. Contralateral knee reveals no deformity upon inspection. No joint effusion, edema, erythema, ecchymosis, or lesions. Neurovascularly intact. No localized tenderness. ROM is full and pain free. No crepitus noted. Stability intact with anterior, posterior, and varus/valgus stress at both 0 and 30 degrees of flexion. Special testing negative including Steinmann's, flexion pinch, and patella grind maneuvers. 5/5 strength. Calf/leg compartments soft and compressible. {{Right Left*}} hip reveals no obvious deformity upon inspection. No edema, erythema, ecchymosis, or lesions. Neurovascularly intact. Tenderness present over the greater trochanter and IT band. ROM full in all planes. Negative impingement sign, Rah's, Stinchfield test, and straight leg raise. No instability. 5/5 strength. Calf/leg compartments soft and compressible. Bilateral hip exam reveals painless passive range of motion. No instability. 5/5 strength. X-rays ordered, obtained and reviewed at [facility] today include an AP standing, Vernon, and merchant view of bilateral knees. Lateral view of {{right left*}} knee. Images reveal mild degenerative changes. No acute fracture or lesion. IMPRESSION: {{Right Left* Bilater al}} hip greater trochanteric bursitis and left knee mild degenerative changes PLAN: The patient was thoroughly counseled today regarding their hip condition, its natural history, and the treatment options including physical therapy, medication, and a corticosteroid injection. I explained to the patient that I believe her lateral knee pain is secondary to her greater trochanteric bursitis. The patient is interested in receiving an injection with corticosteroid. {{Right trochanteric region was Left trochanteric region was* Bilateral trochanteric regions were}} prepped sterilely, and injection was administered at the point of maximum tenderness utilizing 40mg of Kenalog and 4cc of 0.25% Marcaine. The patient tolerated the procedure well. Post-injection precautions were discussed. A prescription for physical therapy has been given to the home exercise program. I will see her back in the office in 6 weeks for recheck. All questions answered. Meghana Lin PA-C [address] [place] [address] [address], [place], [address], [facility] - [facility] 08/14/2024 08:35:40 OBGyn Episode No OBEpisode recorded.
== END 2024-09-04 12:54 | disposition home or self-care (01) ==
LOC: HO.HBS 12:48
PROVIDERS: Visit Provider Physician Assistant Surgical
DX: L98.7 Excessive and redundant skin and subcutaneous tissue (principal); Z98.84 Bariatric surgery status
CPT/HCPCS: 98016

== ENCOUNTER → 2024-09-04 12:48 | Outpatient (BNVA) | payer MEDICARE, MEDICAID, SELFPAY | PROVIDERS: Visit Provider Physician Assistant Surgical ==

== ENCOUNTER 2024-10-07 07:48 | Outpatient (REF) | payer MEDICARE, MEDICAID, SELFPAY ==
--- OUTSIDE RECORDS SUMMARY | 2024-10-07 08:00 | XMS_ITS | Data Portability ---
Author Organization [facility], [facility] Address [address] [place] [address] Care Team Providers Care Olericulturist Name Role Phone KIERSTEN VIZCAINO Referring Provider [phone] KIERSTEN VIZCAINO Primary Care Provider [phone] Assessment Encounter Date Assessment Date Assessment LastModified by Organization Details LastModified Time 09/16/2024 09/16/2024 Assessment: No c/o's, since injection, educated w HEP, issued TB, ? Plan: No formal PT to follow, D/c to HEP [email or web address] Not available 09/16/2024 13:16:37 Plan of Treatment Reminders Order Date Submit Date Provider Last Modified By Organization Details Last Modified Time Details Appointments None recorded. Lab None recorded. Referral physical therapist referral - (THIS PRESCRIPTIO N EXPIRES 30 DAYS FROM DATE LISTED)PHYS ICAL THERAPY REFERRALICD -10: M70.62(Left )1. Core stabilizati on, hip abductor strengtheni ng with focus on eccentric strengtheni ng and balance training.2. Soft tissue modalities including foam rollers as needed.3. Home exercise and stretching program.All ow 2-3 visits a week for 6 weeks.Compl eted by: cw 2023 024 [email or web address] Not available 09:43:08 Procedures None recorded. Surgeries None recorded. Imaging XR, hip + pelvis, unilateral, 2 or 3 view - room 203 lt hip 2v cw 2024 025 [email or web address] [facility], [address], [address], [place], [address], 5 08:31:25 XR, knee, 4 or more view - 205, 4 views of left knee. [address] [facility], [address], [address], [place], [address], 5 09:43:08 Medication Orders None recorded. Patient TargetsNo targets recorded. Patient Instructions Encounter Date Encounter Id Patient Instructions Last Modified By Organization Details Last Modified Time 08/13/[id number] trochanteric bursitis: exercises Not available 08/13/2024 09:01:29 [...] visits a week for 6 weeks.Completed by: Referring Physician: Meghana Lin, Orthopedic Surgery, [id number] Encounter Date: 08/13/2024 Results Created Date Observation Date Name Description Value Unit Range Abnormal Flag Note LastModifiedBy Organization Detail LastModifiedTime 08/13/20 24 08/13/2024 XR, knee, 4 or more view [email or web address] ?Encry pted=s hAaTro YD8dLq bEUv6g %2BXZw aYqtaq 0bqfl% 2Fg9IQ a4ajBk vP9nXo QUaueC m3YtLR FvZlgJ JJ8mAn HZtai3 5q0269 AC0Kqb nWFUqa hKiQtr MwF INTERFACE [facility] [address], [place], [address], 08/13/2024 08:32:45 08/13/20 24 08/13/2024 XR, knee, 4 or more view [email or web address] ?Encry pted=s hAaTro YD8dLq bEUv6g %2BXZw aYqtaq 0bqfl% 2Fg9IQ a4ajBk vP9nXo QUaueC m3YtLR FvZlgJ JJ8mAn HZtai3 5m3402 AC0Kqb nWFUqa hKiQtr MwF INTERFACE [facility] [address], [place], [address], 08/13/2024 08:32:47 08/23/19 25 08/23/2024 XR, hip + pelvi s, unila teral , 2 or 3 view [email or web address] ?Encry pted=s hAaTro YD8dLq bEUv6g %2BXZw aYqtaq 0bqfl% 2Fg9IQ a4ajBk vP9nXo QUaueC m3YtLR FvZl J8Wainwright HZtai3 3f7361 AC0Kqb 3%2BAV aqgKiQ trMwF INTERFACE [facility] [address], [place], [address], 08/23/2024 10:14:39 08/23/19 25 08/23/2024 XR, hip + pelvi s, unila teral , 2 or 3 view [email or web address] ?Encry pted=s hAaTro YD8dLq bEUv6g %2BXZw aYqtaq 0bqfl% 2Fg9IQ a4ajBk vP9nXo QUaueC m3YtLR FvZlgJ JJ8mAn HZtai3 4l8971 AC0Kqb 3%2BAV aqgKiQ trMwF INTERFACE [facility] [address], [place], [address], 08/23/2024 10:14:41 Result Notes None recorded. Problems Name Problem SNOMED Code Status Onset Date Resolution Date Notes Provider Name and Address Organization Details Recorded Time No complaint s 861394662 Active Status: 'I'; Not Available [facility] 4 09:19:39 Trochante angel bursitis of left hip 332495268164 103 Active 2024 ailyn cabral [facility] 5 10:08:25 Sprain of tibiofibu lar ligament of left ankle 446743838449 34231 Active 2016 Problem Code: S93.432A ; Problem Code Type: ICD-10; Status: 'A'; Not Available [facility] 4 11:42:26 Sprain of left ankle 510657349171 14272 Active 2016 Problem Code: S93.492A ; Problem Code Type: ICD-10; Status: 'A'; Not Available [facility] 4 11:42:26 Sprain of calcaneof ibular ligament 25820848 Active 2016 Problem Code: S93.412A ; Problem Code Type: ICD-10; Status: 'A'; Not Available [facility] 4 11:42:27 Problem Notes None recorded. Procedures Surgical History Date Name Laterality Status Provider Name and Address Organization Details Recorded Time 5 56054 Therapeutic Exercise (1:1) completed Escobar Hampton, PT [address] [facility], [place], [address], [facility] 09/16/2024 07:00:53 5 25395: Low complexity PT Eval completed Escobar Hampton, PT [address] [facility], [place], [address], [facility] 09/16/2024 07:00:55 5 G8420 BMI Normal, No Follow-Up Plan Required completed Escobar Hampton, PT [address], [place], [address], [facility] 09/16/2024 07:12:08 5 G8427 Current Medication Documented completed Escobar Hampton, PT [address] [facility], [place], [address], [facility] 09/16/2024 07:11:45 Hip Kenalog 1cc Injection, L/R completed Meghana Lin PA-C [address] [facility], [place], [address], [facility] 08/13/2024 09:09:12 Imaging Results Imaging Date Name Status LastModified by Organiz ation Details LastModified Time 08/13/2024 XR, knee, 4 or more view completed INTERFACE [facility] [address], [place], [address], 08/13/2024 08:32:45 08/13/2024 XR, knee, 4 or more view completed INTERFACE [facility] [address], [place], [address], 08/13/2024 08:32:47 08/23/2024 XR, hip + pelvis, unilateral , 2 or 3 view completed INTERFACE [facility] [address], [place], [address], 08/23/2024 10:14:39 08/23/2024 XR, hip + pelvis, unilateral , 2 or 3 view completed INTERFACE [facility] [address], [place], [address], 08/23/2024 10:14:41 Procedure Notes None recorded. Medical Equipment None Reported. Allergies Allergen ID Allergen Name Allergen Category Reaction Reaction Severity Criticality Documentation Date Start Date Code Code System Note Provider Name and Address Organization Details Recorded Time 805979 Cymbalta medicatio n Not available Not available Not available 10/16/20232020 34584 4 RxNorm Aller gyNam e: 'Cymb jarrod Cpep' ; Aller gyRea ction : 'stom ach pain' ; Not Available [employer] 15:27:26 287230 Effexor medicatio n Not available Not available Not available 08/13/2024 26585 2 RxNorm Rita cabral [facility] 4 08:22:24 786248 acetamino phen / oxycodone medicatio n Not available Not available Not available 08/13/2024 71134 3 RxNorm Rita cabral [place] [facility] [place] [facility] 4 08:22:39 Medications Name Sig Start Date Stop Date Status Note LastModified by Organization Details LastModified Time acetaminoph en 325 mg tablet TAKE 2 TABLETS BY MOUTH EVERY 6 HOURS NEEDED FOR FEVER 08/13 completed Not Available Not Available Not Available atorvastati n 20 mg tablet TAKE 1 TABLET BY MOUTH EVERY DAY 08/13 completed Not Available Not Available Not Available azithromyci n 250 mg tablet TAKE 2 TABLETS BY MOUTH TODAY, THEN TAKE 1 TABLET DAILY FOR 4 DAYS DIRECTED active Not Available Not Available No t Available sucralfate 100 mg/mL oral suspension TAKE [...] completed Not Available Not Available Not Available clotrimazol e 1 % topical cream APPLY 1 APPLICATI ON TOPICALLY 2 TIMES A DAY active Not Available Not Available No t Available ipratropium bromide 21 mcg (0.03 %) [...] Address Organization Details Last Updated DateTime 08/13/2024 746898.28 g 37.4 kg/m2 165.1 cm Rita Fong [facility] 08/13/2024 08:22:11 Date Recorded Body height Body mass index (BMI) Body weight Provider Name and Address Organization Details Last Updated DateTime 08/23/2024 165.1 cm 23.8 kg/m2 75734.71 g ailyn remy [facility] 08/23/2024 10:06:45 Date Recorded Body height Body mass index (BMI) Body weight Provider Name and Address Organization Details Last Updated DateTime 09/16/2024 165.1 cm 23.8 kg/m2 04198.71 g Escobar Hampton, PT [address], [place], [address], [facility] 09/16/2024 07:03:01 Social History None recorded. Functional Status None recorded. Mental Status None recorded. Family History Nothing Reported. Medical History No medical history recorded. Gynecological HistoryNo gynecological history recorded. Obstetrics History GPAL:G 0 P 0 0 0 0 Past Encounters Encounter ID Performer Location Encounter Start Date Encounter Closed Date Diagnosis/Indication Diagnosis SNOMED-CT Code Diagnosis ICD10 Code Diagnosis Note [id number] Meghana Wolak, PA-C [facility] [address] [place] [address] 08/13/2024 08:14:56 08/28/2024 09:43:07 Pain of left knee region 3284678304 01201 M25.562 Trochanter ic bursitis of left hip 1419136032 12648 M70.62 Osteoarthr itis of left knee joint 9799064812 43330 M17.12 [id number] [facility] [address] [place] [address] 08/23/2024 09:40:11 09/05/2024 08:31:25 Trochanteric bursitis of left hip 2780451588 01915 M70.62 [id number] [facility] [address] [place] [address] 09/16/2024 11:35:22 09/16/2024 13:54:31 Trochanteric bursitis of left hip 0502210676 09896 M70.62 Health Concerns Section Related Observation LastModified by Organization Detai ls LastModified Time None Recorded Concern Status LastModified by Organization Details LastModified Time None Recorded Advance Directives Directive None Recorded Payers Encounter Date Sequence Insurance Name Policy Number Policy [employer] Covered Member ID [employer] Member ID Guarantor Name 08/13/2024 2 [place] Ruth Stallworth [id number] Ruth Stallworth 08/13/2024 1 [place] Ruth Stallworth [id number] Ruth Stallworth 08/23/2024 2 [place] Ruth Stallworth [id number] Ruth Stallworth 08/23/2024 1 [place] [employer] Ruth Stallworth [id number] Ruth Stallworth 09/16/2024 2 [place] Ruth Stallworth [id number] Ruth Stallworth 09/16/2024 1 [place] [employer] Ruth Stallworth [id number] Ruth Stallworth Notes Date Note Type Note [...] of the knee. She has tried taking wajl-tug-wgfbfqp medication for her pain. She is here today for treatment recommendations. PMH/PSH/MEDS/ALL/FMH/ SOC HX/ROS are reviewed in detail per my medical intake sheet. General Exam: Vital signs are as noted below Mental status: Alert and lucid. Normal insight, affect and grooming. 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 No spasticity [...] strength. X-rays ordered, obtained and reviewed at [facility] today include an AP standing, [place], [...] recheck. All questions answered. Meghana Lin PA-C [address] [facility] [address], [place], [address], [facility] [place] [facility] 08/14/2024 08:35:40 08/23/2024 text/html I am working und er the supervision of Dr. Guzman who was [...] and lucid. Normal insight, affect and grooming. 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 No spasticity [...] extremities. X-rays ordered, obtained and reviewed at [facility] today include an AP pelvis and lateral [...] ALl questions answered. Meghana Lin PA-C [address], [place], [address], [facility] 08/25/2024 22:16:36 09/16/2024 text/html Patient is 59 ye ar old female, indicates she recently developed lateral knee pain without a precipitating event. The pain radiates up the IT band towards her hip. Symptoms are most significant with sleeping at night, prolonged sitting, from a seated position. A cortisone injection had been administered 08/13/24, which she found to be extremely helpful. She only notices a twinge of pain over the lateral hip periodically. Now presents to outpt PT. Current vocational status is...Disabled: Mental health issues , Asthma, IBS, torticollis, FibroFunctional limitations include restricted hip mobility, difficulty navigating stairs, and inability to sleep on side at night. Patient goals are to cont pain free function Escobar Hampton, PT [address], [place], [address], [place] [facility] 09/16/2024 13:18:53 OBGyn Episode No OBEpisode recorded.
[2024-10-07 08:04] LABS: MANUAL DIFF FLAG NO
[2024-10-07 08:53] LABS: Basophils Percent Auto 0.6 % (0-2); Eosinophils Percent Auto 0.4 % (0-4); Hematocrit 41.7 % (37.0-47.0); Hemoglobin 13.6 g/dl (12.0-16.0); Imm Gran Abs Auto 0.02 X10*3/uL (0.00-0.03); Imm Gran Pct Auto 0.4 % (0.0-0.4); Lymphocytes Absolute Auto 2.2 X10*3/uL (1.2-4.9); Lymphocytes Percent Auto 42.3 % (20-40); Mean Corpuscular HGB Conc 32.6 g/dl (31.0-35.0); Mean Corpuscular Hemoglobin 28.9 pg (27.0-33.0); Mean Corpuscular Volume 88.5 fL (80.0-98.0); Mean Platelet Volume 11.3 fL (9.4-12.3); Monocytes Absolute Auto 0.3 X10*3/uL (0.1-1.2); Monocytes Percent Auto 4.8 % (2-11); Neutrophils Absolute Auto 2.7 x10*3/uL (2.0-8.3); Neutrophils Percent Auto 51.5 % (45-73); Platelet Count 234 X10*3/uL (160-400); Red Blood Count 4.71 X10*6/uL (4.20-5.50); Red Cell Distribution Width 15.3 % (11.0-16.0); White Blood Count 5.3 X10*3/uL (4.8-10.8)
[2024-10-07 08:55] LABS: Estimated Average Glucose 97 mg/dL; Total Hemoglobin (HGBA1C) 3430.4172 umol/L
[2024-10-07 09:39] LABS: Alanine Aminotransferase 11 U/L (0-31); Albumin Level 4.1 g/dL (3.5-5.0); Alkaline Phosphatase 42 U/L (39-117); Anion Gap 14 (12-20); Aspartate Amino Transferase 15 U/L (5-31); Bilirubin Total 0.6 mg/dL (0.0-1.0); Blood Urea Nitrogen 14 mg/dL (9-16); C Reactive Protein 0.43 mg/dL (< or = 0.50); Carbon Dioxide 27 mmol/L (22-29); Chloride 105 mmol/L (96-108); Cholesterol 190 mg/dL (<200); Estimated Glomerular Filt Rate > 60; Glucose Random 76 mg/dL (60-115); HDL Cholesterol 44 mg/dL (>40); Iron 70 mcg/dL (30-160); LDL Cholesterol Calculated 130 mg/dL (<100); Percent Iron Saturation 36 % (15-50); Potassium 3.8 mmol/L (3.3-5.1); Sodium 142 mmol/L (135-145); Total Iron Binding Capacity 194 mcg/dL (228-428); Total Protein 7.1 g/dL (6.5-8.0); Triglycerides 80 mg/dL (<150); Unsaturated Iron Binding 124 ug/dL
[2024-10-07 10:06] LABS: Folate 6.8 ng/mL (> or = 4.0); Vitamin B12 804 pg/mL (200-900)
[2024-10-07 10:08] LABS: Ferritin 225 ng/mL (10-250); TSH reflex Free T4 2.41 uIU/mL (0.32-4.0); Vitamin D 25-OH Total 64.4 ng/mL (>30)
[2024-10-07 10:14] LABS: Insulin 2 uU/mL (2-29)
[2024-10-09 23:03] LABS: Zinc 82 mcg/dL (60-130)
[2024-10-10 18:38] LABS: Vitamin A 21 mcg/dL (38-98)
[2024-10-19 07:44] LABS: Vitamin B1 10 nmol/L (8-30)
== END 2024-10-07 07:49 | disposition home or self-care (01) ==
LOC: HO.LAB 07:48
PROVIDERS: PCP Physician Assistant Medical; Visit Provider Physician Assistant Surgical
DX: Z98.84 Bariatric surgery status (principal); Z13.1 Encounter for screening for diabetes mellitus
CPT/HCPCS: 36415; 80053; 80061; 82306; 82607; 82728; 82746; 83036; 83525; 83540; 84425; 84443; 84590; 84630; 85025; 86140

== ENCOUNTER 2024-10-21 11:39 | Outpatient (AMB) | payer MEDICARE, MEDICAID, SELFPAY ==
--- NOTE | 2024-10-21 11:31 | MHC.OFFVISWM ---
VS Expanded 10/21/24 11:37 Height 5 ft 4 in Weight 124 lb 8 oz BMI 21.4 Intake Visit Reasons: TELEPHONE PO LSG 04/10/24 Allergies duloxetine [From Cymbalta] Adverse Reaction (Intermediate, Verified 04/18/24 14:20) Gastrointestinal Upset oxycodone [From Percocet] Adverse Reaction (Intermediate, Verified 04/18/24 14:20) Vomiting Medication List - Last Reconciled 10/21/24 by JHON Rush albuterol sulfate 90 mcg/actuation (Ventolin HFA) 1 inh inhalation Q4-8H PRN bisacodyl (Dulcolax (bisacodyl)) 10 mg TN DAILY PRN clotrimazole 1% 1 appl topical BID docusate sodium (Colace) 100 mg PO DAILY inulin (Fiber Gummies) 2 grams PO DAILY HPI Comments Details: This?is a?59 yo female who is s/p LSG 04/10/2024. Presents for 6mo post op visit. Weight at last visit on 09/04/2024 was 133.4 pounds with a BMI of 22.9, weight today is 124.8 pounds, representing a 8.6 pound weight loss with a BMI today of 21.4.? No complaints of nausea, emesis, abdominal pain or reflux, or constipation. Pt reports increasing back pain- the more weight I lose, the more back pain I have. Had Botox injections for shoulder over a year ago. Has an appt with [facility] coming up. Present meal plan includes: 7-9am 1/2 scoop Celebrate Rebuild in 8oz UAM 10am-12pm Orgain bar 1pm 4ff protein, 4ff rice or potato 3-5pm 1/2 scoop Celebrate Rebuild in 8oz UAM 6pm 4ff protein, 4ff veg/salad (cucumber slices, 1 yu tomato and sintia) 8-9pm half Orgain bar on Celebrate MVI Exercise routine includes: started [employer] videos for upper body strengthening, indoor walking Pt reports excess skin of upper thighs, noticed odor and has been using body deodorant in the skin folds. Walking up stairs is difficult due to flapping of excess skin with movement. She also experiences this with her arms but to a lesser extent. Also has excess skin of abdomen. [facility] Medical History (Updated 06/20/24 @ 13:11 by JHON Rush) Obesity Torticollis Spasmodic torticollis History of tremor IBS (irritable bowel syndrome) Fatty liver Vocal cord dysfunction Unilateral vocal cord paralysis DJD (degenerative joint disease) Arthritis Back pain Seasonal depression Anxiety DJD (degenerative joint disease) Asthma Sleep apnea treated with continuous positive airway pressure (CPAP) Surgical History (Updated 04/19/24 @ 00:01 by Selvin Theodore) S/P laparoscopic sleeve gastrectomy History of esophagogastroduodenoscopy (EGD) (02/14/24) Hx of umbilical hernia repair Hx of rotator cuff surgery Hx of colonoscopy Hx of oral surgery Family History Mother Breast CA Father FH: prostate cancer Social History Household Members: Family Housing: House Are you a primary home child care provider to a significant other at home: Yes (sister w/dementia and son w/ autism-aunt will help post-op) Do you presently have visiting nurse or other home services: Yes Alcohol intake: never Patient Tobacco Use Status: Never used Tobacco Physical Exam Vital Signs: BMI result Body Mass Index 21.4 Telehealth Telehealth Telehealth Platform: Telephone Location of provider rendering services: other Location of patient: address on file Patient Identification confirmed using: Name, : Yes Telehealth method: voice only Patient verbally consented to treatment: Yes Patient verbally consented to billing insurance company: Yes Patient informed of any privacy concerns related to visit: Yes Minutes spent on Phone/Video with Pt.: 16 Assessment & Plan Assessment & Plan (1) S/P laparoscopic sleeve gastrectomy: Code(s): Z98.84 - Bariatric surgery status Category: Surgical Plan Pt is interested in skin removal once she is 18mo postop, legs and abdomen first. She will continue to follow maintenance meal plan per Dr. Ramos If she continues to lose weight suggested one serving of healthy fats per day. Labs reviewed, vit A supplement ordered. RTC 3mo. Medications: New vitamin A palmitate 10,000 units PO DAILY 90 caps 3RF
[2024-10-21 11:37] VITALS: BMI 21.4
== END 2024-10-21 11:58 | disposition home or self-care (01) ==
LOC: HO.HBS 11:39
PROVIDERS: PCP Physician Assistant Medical; Visit Provider Physician Assistant Surgical
DX: Z71.3 Dietary counseling and surveillance (principal); Z98.84 Bariatric surgery status
CPT/HCPCS: 99214; G2211

== ENCOUNTER → 2024-10-21 11:39 | Outpatient (BNVA) | payer MEDICARE, MEDICAID, SELFPAY | PROVIDERS: PCP Physician Assistant Medical; Visit Provider Physician Assistant Surgical ==

== ENCOUNTER 2025-01-13 10:20 | Outpatient (AMB) | payer MEDICARE, MEDICAID, SELFPAY ==
--- NOTE | 2025-01-13 10:00 | MHC.OFFVISWM ---
VS Expanded 01/13/25 10:08 Height 5 ft 4 in Weight 107 lb BMI 18.4 Intake Visit Reasons: TELEPHONE PO LSG 04/10/24 Allergies duloxetine [From Cymbalta] Adverse Reaction (Intermediate, Verified 04/18/24 14:20) Gastrointestinal Upset oxycodone [From Percocet] Adverse Reaction (Intermediate, Verified 04/18/24 14:20) Vomiting Medication List - Last Reconciled 01/13/25 by JHON Rush albuterol sulfate 90 mcg/actuation (Ventolin HFA) 1 inh inhalation Q4-8H PRN bisacodyl (Dulcolax (bisacodyl)) 10 mg NM DAILY PRN clotrimazole 1% 1 appl topical BID docusate sodium (Colace) 100 mg PO DAILY inulin (Fiber Gummies) 2 grams PO DAILY vitamin A palmitate 10,000 units PO DAILY HPI Comments Details: This?is a?59?yo F who is s/p LSG 04/10/2024. Presents for 9mo post op visit. Weight at last visit on 10/21/2024 was 124.8 pounds, weight today is 107 pounds, representing a 17.8 pound weight loss with a BMI today of 18.4.? No complaints of nausea, emesis, abdominal pain or reflux, or constipation. She is concerned about how much weight loss she has experienced. Present meal plan includes: 7-9am 1 scoop Celebrate Rebuild in 8oz UAM 10am-12pm Orgain bar 1pm 4ff protein, 4ff rice or potato 3-5pm 1 scoop Celebrate Rebuild in 8oz UAM 6pm 4ff protein, 4ff veg/salad (cucumber slices, 1 yu tomato and sintia) 8-9pm half Orgain bar on Celebrate MVI Exercise routine includes: started Youtube videos for upper body strengthening, indoor walking Pt reports excess skin of upper thighs, noticed odor and has been using body deodorant in the skin folds. Walking up stairs is difficult due to flapping of excess skin with movement. She also experiences this with her arms but to a lesser extent. Also has excess skin of abdomen. [facility] Medical History (Updated 06/02/25 @ 10:23 by JHON Rush) Obesity Torticollis Spasmodic torticollis History of tremor IBS (irritable bowel syndrome) Fatty liver Vocal cord dysfunction Unilateral vocal cord paralysis DJD (degenerative joint disease) Arthritis Back pain Seasonal depression Anxiety DJD (degenerative joint disease) Asthma Sleep apnea treated with continuous positive airway pressure (CPAP) Surgical History (Updated 04/19/24 @ 00:01 by Selvin Theodore) S/P laparoscopic sleeve gastrectomy History of esophagogastroduodenoscopy (EGD) (02/14/24) Hx of umbilical hernia repair Hx of rotator cuff surgery Hx of colonoscopy Hx of oral surgery Family History Mother Breast CA Father FH: prostate cancer Social History Household Members: Family Housing: House Are you a primary manager critical care unit to a significant other at home: Yes (sister w/dementia and son w/ autism-aunt will help post-op) Do you presently have visiting nurse or other home services: Yes Alcohol intake: never Patient Tobacco Use Status: Never used Tobacco Telehealth Telehealth Telehealth Platform: Telephone Location of provider rendering services: practice address Location of patient: other Patient Identification confirmed using: Name, : Yes Telehealth method: voice only Patient verbally consented to treatment: Yes Patient verbally consented to billing insurance company: Yes Patient informed of any privacy concerns related to visit: Yes Minutes spent on Phone/Video with Pt.: 10 Assessment & Plan Assessment & Plan (1) S/P laparoscopic sleeve gastrectomy: Code(s): Z98.84 - Bariatric surgery status Category: Medical (2) Excess skin: Code(s): L98.7 - Excessive and redundant skin and subcutaneous tissue Category: Medical Plan Pt is interested in skin removal once she is 18mo postop, legs and abdomen first. I suggested she adjust her meal plan to stop weight loss. Add 1-2 servings healthy fats per day. Could add 1 tbsp nut butter to protein shakes, or 1tbsp olive oil or 1/2 avocado to lunch or dinner. She is due to text Dr Soto again in 2 weeks. Work on strength training as main form of exercise. RTC around 04/10/2025 for 1 year appt.
[2025-01-13 10:08] VITALS: BMI 18.4
== END 2025-01-13 10:24 | disposition home or self-care (01) ==
LOC: HO.HBS 10:21
PROVIDERS: PCP Physician Assistant Medical; Visit Provider Physician Assistant Surgical
DX: L98.7 Excessive and redundant skin and subcutaneous tissue (principal); Z90.3 Acquired absence of stomach [part of]; Z98.84 Bariatric surgery status
CPT/HCPCS: 99214; G2211

== ENCOUNTER → 2025-01-13 10:20 | Outpatient (BNVA) | payer MEDICARE, MEDICAID, SELFPAY | PROVIDERS: PCP Physician Assistant Medical; Visit Provider Physician Assistant Surgical | DX: Z13.89 Encounter for screening for other disorder (principal) ==

== ENCOUNTER 2025-02-19 08:11 | Outpatient (AMB) | payer MEDICARE, MEDICAID, SELFPAY ==
--- NOTE | 2025-02-19 08:14 | MHC.OFFVIS ---
Vital Signs 02/19/25 08:17 Height 5 ft 4 in Weight 109 lb BMI 18.7 BP 104/72 Blood Pressure Location Rt brachial Position Sitting Intake Visit Reasons: ENP-Neurological movem Dis/Spasmodic Torticollis Intake Note: Patient referred for neurological movement disorder Allergies duloxetine (From Cymbalta) Adverse Reaction (Intermediate, Verified 02/19/25 08:18) Gastrointestinal Upset oxycodone (From Percocet) Adverse Reaction (Intermediate, Verified 02/19/25 08:18) Vomiting Medication List - Last Reconciled 02/19/25 by Sabi Daugherty MD albuterol sulfate 90 mcg/actuation (Ventolin HFA) 1 inh inhalation Q4-8H PRN bisacodyl (Dulcolax (bisacodyl)) 10 mg NM DAILY PRN multivitamin 1 tab PO DAILY vitamin A palmitate 10,000 units PO DAILY HPI Comments Details: 59y/o female with spasmodic torticollis comes for further management. she was seeing since 1999 , was getting botox q 3 mths and later transferred to Dr. Hannon until he retired. Her last treatment with Botox was in October of 2023. Her symptoms started in 1991. Her main symptoms, neck pain, stiffness, head tremors. voice tremors- right vocal cord paralyzed ( ENT). No family h/o dystonia or neck injury. No exposure to neuroleptics or reglan. she also has sleep apnea on CPAP followed up at [facility] [employer] is her Home care company. [facility] Medical History (Updated 02/19/25 @ 08:41 by Sabi Daugherty MD) Obesity Torticollis Spasmodic torticollis History of tremor IBS (irritable bowel syndrome) Fatty liver Vocal cord dysfunction Unilateral vocal cord paralysis DJD (degenerative joint disease) Arthritis Back pain Seasonal depression Anxiety DJD (degenerative joint disease) Asthma Sleep apnea treated with continuous positive airway pressure (CPAP) Surgical History S/P laparoscopic sleeve gastrectomy History of esophagogastroduodenoscopy (EGD) (02/14/24) Hx of umbilical hernia repair Hx of rotator cuff surgery Hx of colonoscopy Hx of oral surgery Family History Mother Breast CA Father FH: prostate cancer Social History Household Members: Family Housing: House Are you a primary human services care specialist to a significant other at home: Yes (sister w/dementia and son w/ autism-aunt will help post-op) Do you presently have visiting nurse or other home services: Yes Alcohol intake: never Patient Tobacco Use Status: Never used Tobacco Physical Exam Vital Signs: Last Vital Signs BP 104/72 02/19/25 08:17 BMI result Body Mass Index 18.7 Const General: cooperative, healthy appearing and comfortable Nutritional Appearance: average body habitus Orientation/consciousness: patient oriented x3 Eyes Pupils: Equal, round and reactive pupils present Neuro Other: no no head tremors Voice tremors retrocollis , right torticollis resticted range of motion neck Stevie scalene levator tightness Mallampatti grade 3 General: patient oriented x3, moves all extremities and no focal motor deficits Cranial nerves: Yes Facial sensation intact/muscles of mastication intact, Yes Equal, round and reactive pupils present, Yes Bilaterally intact EOM present, Yes Nystagmus not present, Yes Normal facial strength present, Yes Midline tongue present and Yes Symmetric palate elevation present Cognition (Neuro): normal cognition Gait exam (Neuro): Normal gait present Motor exam (neuro): 5/5 motor strength present throughout and Normal motor muscle tone present throughout Deep tendon reflexes (DTR's): Right triceps reflex intensity grade: 2+, Left triceps reflex intensity grade: 2+, Rt Biceps (C5, C6): 2+, Left biceps reflex intensity grade: 2+, Right brachioradialis reflex intensity grade: 2+, Left brachioradialis reflex intensity grade: 2+, Right patellar reflex intensity grade: 3+, Left patellar reflex intensity grade: 3+, Right ankle reflex intensity grade: 2+ and Left ankle reflex intensity grade: 2+ Coordination: [id number] test normal Assessment & Plan Assessment & Plan (1) Spasmodic torticollis: Code(s): G24.3 - Spasmodic torticollis Category: Medical Plan X RAY C spine for evaluation I will get a prior auth for Botox and restart treatment for her spasmodic torticollis Orders: Orders XR cervical spine 3V Today G24.3 - Spasmodic torticollis Coding Level of Care Code New Pt Level 4 (89689) Diagnoses Spasmodic torticollis G24.3
[2025-02-19 08:17] VITALS: BP 104/72; BMI 18.7
== END 2025-02-19 08:45 | disposition home or self-care (01) ==
LOC: HO.HSMS 08:11
PROVIDERS: Visit Provider Psychiatry & Neurology Neurology
DX: G24.3 Spasmodic torticollis (principal)
CPT/HCPCS: 99204

== ENCOUNTER 2025-02-19 08:11 | Outpatient (REF) | payer MEDICARE, MEDICAID, SELFPAY ==
--- NOTE | ~2025-02-19 | XR_ITS ---
EXAMINATION: XR CERVICAL SPINE 2-3 VIEWS HISTORY: G24.3 - Spasmodic torticollis COMPARISON: There are no prior studies available for comparison. FINDINGS: AP, lateral, and open-mouth odontoid views of the cervical spine are submitted. Osseous mineralization is normal. Seven cervical vertebral bodies are identified maintaining normal height and alignment without evidence of fracture or subluxation. The intervertebral disc spaces are preserved. There is osteoarthritis of the facet joints, right greater than left. The odontoid and lateral masses of C1 are intact. There is no prevertebral soft tissue swelling. XR/XR cervical spine 3V IMPRESSION: Facet osteoarthritis. Electronically signed by: Onur Arellano MD 02/19/2025 09:53 AM EDT
== END 2025-02-19 08:12 | disposition home or self-care (01) ==
LOC: HO.XRAY 08:11
PROVIDERS: PCP Physician Assistant Medical; Visit Provider Psychiatry & Neurology Neurology
DX: G24.3 Spasmodic torticollis (principal); G47.30 Sleep apnea, unspecified; M54.2 Cervicalgia; Z79.899 Other long term (current) drug therapy
CPT/HCPCS: 72040; 99202

== ENCOUNTER → 2025-02-19 09:13 | Outpatient (BNV) | payer MEDICARE, MEDICAID, SELFPAY | PROVIDERS: PCP Physician Assistant Medical; Visit Provider Radiology Diagnostic Radiology | DX: M47.812 Spondylosis without myelopathy or radiculopathy, cervical region (principal) | CPT/HCPCS: 72040 ==

== ENCOUNTER 2025-03-25 12:56 | Outpatient (AMB) | payer MEDICARE, MEDICAID, SELFPAY ==
--- NOTE | 2025-03-25 12:59 | A.OFFVIS_ITS ---
Vital Signs 03/25/25 13:00 Height 5 ft 4 in Weight 106 lb 2 oz BMI 18.2 BP 100/58 L Blood Pressure Location Rt brachial Position Sitting Pulse 70 Pulse Source Pulse Oximeter Pulse Oximetry (%) 100 Oxygen Delivery Method Room Air Intake Visit Reasons: Botox B&B Intake Note: [facility] Appraiser Required: No Accompanied by: Self / Same As Patient Allergies duloxetine (From Cymbalta) Adverse Reaction (Intermediate, Verified 03/25/25 13:04) Gastrointestinal Upset oxycodone (From Percocet) Adverse Reaction (Intermediate, Verified 03/25/25 13:04) Vomiting Medication List - Last Reconciled 03/25/25 by Sabi Daugherty MD albuterol sulfate 90 mcg/actuation (Ventolin HFA) 1 inh inhalation Q4-8H PRN bisacodyl (Dulcolax (bisacodyl)) 10 mg RI DAILY PRN multivitamin 1 tab PO DAILY vitamin A palmitate 10,000 units PO DAILY HPI Comments Details: 60y/o female comes for treatment of her cervical dystonia ? Side effects including spread of toxin effect, dysphagia, breathing difficulties , bronchitis etc was discussed in detail and the patient agreed to the procedure.An informed consent was obtained ??? Botulinum toxin type A 200units X 1 -was diluted with 2 cc of normal saline at a concentration of 25 units in 0.5cc saline. Lot number [id number] expiration 05/2027 ??? Muscles injected ??? stevie Splenius - 50 units each ??? stevie levator 25 units each ??? BilTrapezius 12.5 units each Stevie semispinalis 12.5 units each ??? Total used 200 units PFS Medical History Obesity Torticollis Spasmodic torticollis History of tremor IBS (irritable bowel syndrome) Fatty liver Vocal cord dysfunction Unilateral vocal cord paralysis DJD (degenerative joint disease) Arthritis Back pain Seasonal depression Anxiety DJD (degenerative joint disease) Asthma Sleep apnea treated with continuous positive airway pressure (CPAP) Surgical History S/P laparoscopic sleeve gastrectomy History of esophagogastroduodenoscopy (EGD) (02/14/24) Hx of umbilical hernia repair Hx of rotator cuff surgery Hx of colonoscopy Hx of oral surgery Family History Mother Breast CA Father FH: prostate cancer Social History Household Members: Family Housing: House Are you a primary transitional care manager to a significant other at home: Yes (sister w/dementia and son w/ autism-aunt will help post-op) Do you presently have visiting nurse or other home services: Yes Alcohol intake: never Patient Tobacco Use Status: Never used Tobacco Physical Exam Vital Signs: Last Vital Signs Pulse 70 03/25/25 13:00 BP 100/58 L 03/25/25 13:00 Pulse Ox 100 03/25/25 13:00 Oxygen Delivery Method Room Air 03/25/25 13:00 BMI result Body Mass Index 18.2 Const General: cooperative, healthy appearing and comfortable Nutritional Appearance: average body habitus Orientation/consciousness: patient oriented x3 Eyes Pupils: Equal, round and reactive pupils present Neuro Other: no no head tremors Voice tremors retrocollis , right torticollis resticted range of motion neck Stevie scalene levator tightness Mallampatti grade 3 General: patient oriented x3, moves all extremities and no focal motor deficits Cranial nerves: Yes Facial sensation intact/muscles of mastication intact, Yes Equal, round and reactive pupils present, Yes Bilaterally intact EOM present, Yes Nystagmus not present, Yes Normal facial strength present, Yes Midline tongue present and Yes Symmetric palate elevation present Cognition (Neuro): normal cognition Coordination: [id number] test normal Office Procedures Botulinum toxin Injection 48984 - Dystonia Procedure code (CPT) selection complete Office Meds onabotulinumtoxinA 200 unit solution for injection Performing Provider: Sabi Daugherty MD Performing Location: [facility] Administered by: Sabi Daugherty MD on 03/25/25 13:39 Dose Route Admin Location Dispensed Lot Number Expiration Date [facility] Lumber Sorter Machine 200 unit IM 200 units [id number] [employer] /BOTOX Total Dispensed Waste 200 units 0 % Comments: see HPI Assessment & Plan Assessment & Plan (1) Spasmodic torticollis: Code(s): G24.3 - Spasmodic torticollis Category: Medical Plan Patient tolerated the procedure well she will call with any side effects Orders: Orders AMB Botulinum toxin Injection Today G24.3 - Spasmodic torticollis Coding Level of Care Code Est Pt Level 1 (68185) Diagnoses Spasmodic torticollis G24.3 CPT Codes Botox Injection - Botox 4: 79695 - Dystonia ([id number])
[2025-03-25 13:00] VITALS: BP 100/58; PULSE 70; O2SAT 100; BMI 18.2
== END 2025-03-25 13:33 | disposition home or self-care (01) ==
LOC: HO.HSMS 12:56
PROVIDERS: PCP Physician Assistant Medical; Visit Provider Psychiatry & Neurology Neurology
DX: G24.3 Spasmodic torticollis (principal)
CPT/HCPCS: 64616

== ENCOUNTER → 2025-03-25 12:56 | Outpatient (BNVA) | payer MEDICARE, MEDICAID, SELFPAY | PROVIDERS: PCP Physician Assistant Medical; Visit Provider Psychiatry & Neurology Neurology | DX: G24.3 Spasmodic torticollis (principal) | CPT/HCPCS: 64616; 99211; J0585 ==

== ENCOUNTER 2025-04-23 10:43 | Outpatient (AMB) | payer MEDICARE, MEDICAID, SELFPAY ==
--- NOTE | 2025-04-23 10:48 | MHC.OFFVISWM ---
VS Expanded 04/23/25 10:58 BP 113/67 Blood Pressure Location Rt brachial Blood Pressure Position Sitting Pulse 70 Pulse Source Pulse Oximeter Temp 96.4 F L Temperature Source Temporal Artery Scan Pulse Oximetry 99 Oxygen Delivery Method Room Air Height 5 ft 4 in Weight 105 lb BMI 18.0 Body Fat % 15.3 Body Fat Mass 16.0 Fat Free Mass 88.8 Visceral Fat Rating 4.0 Body Water % 59.7 Body Water Mass 62.6 Muscle Mass/Score 84.2 Basal Metabolic Rate/Score 1,162 Intake Visit Reasons: (OV) PO LSG 04/10/24 Allergies duloxetine (From Cymbalta) Adverse Reaction (Intermediate, Verified 04/23/25 10:50) Gastrointestinal Upset oxycodone (From Percocet) Adverse Reaction (Intermediate, Verified 04/23/25 10:50) Vomiting Medication List - Last Reconciled 04/23/25 by JHON Rush albuterol sulfate 90 mcg/actuation (Ventolin HFA) 1 inh inhalation Q4-8H PRN multivitamin 1 tab PO DAILY vitamin A palmitate 10,000 units PO DAILY HPI Comments Details: This?is a?59?yo F who is s/p LSG 04/10/2024. Presents for 1y post op visit. Weight stable since last OV.? No complaints of nausea, emesis, abdominal pain or reflux, or constipation. Pt has been following with RD to help with weight maintenance/gain. Present meal plan includes: 2 protein bars- Quest 2 small meals 4ff protein, 4ff rice or potato 2 snacks- banana, apple, sargento cheese, Vietnamese yogurt on [employer]VI Exercise routine includes: started Youtube videos for upper body strengthening, indoor walking Pt reports excess skin of upper thighs, noticed odor and has been using body deodorant in the skin folds. Walking up stairs is difficult due to flapping of excess skin with movement. She also experiences this with her arms but to a lesser extent. Also has excess skin of abdomen which results in skin irritation/boils for which she has used athlete's foot cream. She notices an unpleasant smell when moisture collects in the area and has to clean more frequently. The skin hangs low and interferes with normal clothing, always has to wear a layer under her clothes. When she drives in the car, excess skin rubs when she moves to shift. [facility] Medical History Obesity Torticollis Spasmodic torticollis History of tremor IBS (irritable bowel syndrome) Fatty liver Vocal cord dysfunction Unilateral vocal cord paralysis DJD (degenerative joint disease) Arthritis Back pain Seasonal depression Anxiety DJD (degenerative joint disease) Asthma Sleep apnea treated with continuous positive airway pressure (CPAP) Surgical History (Updated 04/23/25 @ 10:51 by Eladia Carbone CMA) Hx of hand surgery S/P laparoscopic sleeve gastrectomy History of esophagogastroduodenoscopy (EGD) (02/14/24) Hx of umbilical hernia repair Hx of rotator cuff surgery Hx of colonoscopy Hx of oral surgery Family History Mother Breast CA Father FH: prostate cancer Social History Household Members: Family Housing: House Are you a primary home health aide caregiver to a significant other at home: Yes (sister w/dementia and son w/ autism-aunt will help post-op) Do you presently have visiting nurse or other home services: Yes Alcohol intake: never Patient Tobacco Use Status: Never used Tobacco Physical Exam Vital Signs: Last Vital Signs Temp 96.4 F L 04/23/25 10:58 Pulse 70 04/23/25 10:58 BP 113/67 04/23/25 10:58 Pulse Ox 99 04/23/25 10:58 Oxygen Delivery Method Room Air 04/23/25 10:58 BMI result Body Mass Index 18.0 Const General: cooperative, comfortable and no acute distress Orientation/consciousness: patient oriented x3 GI Other: soft, nontender, nondistended, incisions well healed, no hernia, no masses Grade II pannus Neuro General: patient oriented x3 Assessment & Plan Assessment & Plan (1) S/P laparoscopic sleeve gastrectomy: Code(s): Z98.84 - Bariatric surgery status Category: Surgical (2) Excess skin: Code(s): L98.7 - Excessive and redundant skin and subcutaneous tissue Category: Medical Plan Pt is interested in skin removal once she is 18mo postop, legs and abdomen first. She is also interested in plastic surgery consult for additional procedures/ whether she needs some sort of abdominoplasty. Will refer. [place] eval [place] [facility] per pt request for help with deconditioning. Labs and testosterone (requested by pt as her son is transgender, she is concerned about being in contact with testosterone gel that he uses). Continue meal plan per RD, recommended some higher calorie protein bars like [employer] Elevation, Beto, Gatorade. RTC 3mo. Orders: Orders PT Evaluation and Treatment Today R53.81 - Other malaise Vitamin D 25-OH Total Today Z98.84 - Bariatric surgery status Ferritin Today Z98.84 - Bariatric surgery status Vitamin B1 Today Z98.84 - Bariatric surgery status Comprehensive Met. Panel Today Z98.84 - Bariatric surgery status Complete Blood Count Auto Diff Today Z98.84 - Bariatric surgery status IRON PROFILE Today Z98.84 - Bariatric surgery status Testosterone, Free/Total Today Z98.84 - Bariatric surgery status TSH reflex Free T4 Today Z98.84 - Bariatric surgery status C Reactive Protein Today Z98.84 - Bariatric surgery status Vitamin A Today Z98.84 - Bariatric surgery status Zinc Today Z98.84 - Bariatric surgery status Vitamin B12 and Folate Today Z98.84 - Bariatric surgery status Lipid Panel Today Z98.84 - Bariatric surgery status Hemoglobin A1c Today Z98.84 - Bariatric surgery status Insulin Today Z98.84 - Bariatric surgery status
[2025-04-23 10:58] VITALS: BP 113/67; PULSE 70; TEMP 35.8; O2SAT 99; BMI 18.0
== END 2025-04-23 11:38 | disposition home or self-care (01) ==
LOC: HO.HBS 10:43
PROVIDERS: PCP Physician Assistant Medical; Visit Provider Physician Assistant Surgical
DX: L98.7 Excessive and redundant skin and subcutaneous tissue (principal); Z98.84 Bariatric surgery status; Z90.3 Acquired absence of stomach [part of]
CPT/HCPCS: 99214; G2211

== ENCOUNTER → 2025-04-23 10:43 | Outpatient (BNVA) | payer MEDICARE, MEDICAID, SELFPAY | PROVIDERS: PCP Physician Assistant Medical; Visit Provider Physician Assistant Surgical | DX: Z98.84 Bariatric surgery status (principal); L98.7 Excessive and redundant skin and subcutaneous tissue | CPT/HCPCS: 99212 ==

== ENCOUNTER 2025-04-25 08:00 | Outpatient (REF) | payer MEDICARE, MEDICAID, SELFPAY ==
[2025-04-25 08:21] LABS: MANUAL DIFF FLAG NO
[2025-04-25 08:28] LABS: Hematocrit 43.3 % (37.0-47.0); Hemoglobin 14.1 g/dl (12.0-16.0); Imm Gran Abs Auto 0.00 X10*3/uL (0.00-0.03); Imm Gran Pct Auto 0.0 % (0.0-0.4); Lymphocytes Absolute Auto 2.1 X10*3/uL (1.2-4.9); Mean Corpuscular HGB Conc 32.6 g/dl (31.0-35.0); Mean Corpuscular Hemoglobin 29.3 pg (27.0-33.0); Mean Corpuscular Volume 89.8 fL (80.0-98.0); NRBC Abs Auto 0.000 X10*3/uL (0.0-0.012); NRBC Pct Auto 0.0 /100WBC (0.0-0.2); Platelet Count 192 X10*3/uL (160-400); Red Blood Count 4.82 X10*6/uL (4.20-5.50); White Blood Count 3.9 X10*3/uL (4.8-10.8)
[2025-04-25 08:42] LABS: Hemoglobin A1C 125.2961 umol/L; Total Hemoglobin (HGBA1C) 3596.4512 umol/L
[2025-04-25 09:18] LABS: Alanine Aminotransferase 35 U/L (0-31); Albumin Level 4.4 g/dL (3.5-5.0); Alkaline Phosphatase 37 U/L (39-117); Anion Gap 11 (12-20); Aspartate Amino Transferase 24 U/L (5-31); Blood Urea Nitrogen 20 mg/dL (9-16); Calcium 9.8 mg/dL (8.4-10.2); Carbon Dioxide 30 mmol/L (22-29); Chloride 107 mmol/L (96-108); Cholesterol 208 mg/dL (<200); Estimated Glomerular Filt Rate > 60; HDL Cholesterol 57 mg/dL (>40); Iron 89 mcg/dL (30-160); Percent Iron Saturation 38 % (15-50); Potassium 4.5 mmol/L (3.3-5.1); Sodium 143 mmol/L (135-145); Total Iron Binding Capacity 237 mcg/dL (228-428); Total Protein 6.6 g/dL (6.5-8.0); Triglycerides 85 mg/dL (<150); Unsaturated Iron Binding 148 ug/dL
[2025-04-25 09:31] LABS: Ferritin 156 ng/mL (10-250)
[2025-04-25 09:45] LABS: Folate 6.7 ng/mL (> or = 4.0); Vitamin B12 579 pg/mL (200-900)
[2025-04-30 16:19] LABS: Testosterone, Free 0.8 pg/mL (0.1-6.4)
== END 2025-04-25 08:01 | disposition home or self-care (01) ==
LOC: HO.LAB 08:00
PROVIDERS: PCP Physician Assistant Medical; Visit Provider Physician Assistant Surgical
DX: Z13.6 Encounter for screening for cardiovascular disorders (principal); Z13.1 Encounter for screening for diabetes mellitus; Z13.29 Encounter for screening for other suspected endocrine disorder; Z13.0 Encounter for screening for diseases of the blood and blood-forming organs and certain disorders involving the immune mechanism; Z98.84 Bariatric surgery status
CPT/HCPCS: 36415; 80053; 80061; 82306; 82607; 82728; 82746; 83036; 83525; 83540; 84402; 84403; 84425; 84443; 84590; 84630; 85025; 86140

== ENCOUNTER 2025-05-22 08:39 | Inpatient (IN) | payer MEDICARE, MEDICAID, SELFPAY ==
[2025-05-22] VITALS (7 sets, daily range): BP systolic 92–116; BP diastolic 56–77; PULSE 58–70; RESP 14–18; TEMP 36.4–36.8; O2SAT 99–100; BMI 18.8; BMI 18.9
--- NOTE | ~2025-05-22 | NM_ITS ---
EXAMINATION: NM BILIARY TRACT CLINICAL INFORMATION: Eval for cholecystitis. Positive ultrasound gallbladder. COMPARISON: Ultrasound abdomen limited 05/22/2026 TECHNIQUE: Following intravenous administration of 5 mCi of 90 9M technetium mebrofenin, imaging over the right abdomen was obtained up to one hour. 1 mcg of CCK was injected over 30 minutes at 1 hour and further imaging obtained up to 30 minutes. FINDINGS: There is normal hepatic uptake without any focal defect. Gallbladder is visualized by 18 minutes. Small bowel is visualized by 36 8 minutes. Post-CCK the gallbladder ejection fraction at 10 minutes is 52%, At 20 minutes is 71 % and At 30 minutes is 72%. NM/NM hepatobiliary w pharm IMPRESSION: Normal hepatic uptake. Patent cystic duct. Patent CBD. Normal gallbladder ejection fraction of 72% by 30 minutes Electronically signed by: Francisco Rodriguez MD 05/23/2025 04:32 PM EDT
--- NOTE | ~2025-05-22 | US_ITS ---
EXAMINATION: US ABDOMEN LIMITED CLINICAL INFORMATION: Evaluate liver, gallbladder, and bile ducts. Right upper quadrant pain. COMPARISON: Correlation made with CT abdomen and pelvis performed earlier same day. TECHNIQUE: Real-time imaging of the liver, gallbladder, and bile ducts was performed. FINDINGS: LIVER: Liver is mildly enlarged. The right hepatic lobe measures 19.3 cm. The liver contour is normal. Parenchymal echogenicity is normal. No focal hepatic lesion. There is no intrahepatic biliary duct dilatation seen. GALLBLADDER: The gallbladder demonstrates intraluminal gallstones. There is mild wall thickening and minimal pericholecystic fluid present. There was a positive sonographic Rosas's sign at the time of exam. COMMON BILE DUCT: Normal in caliber measuring 0.2 cm in diameter. FREE FLUID: No ascites present. Incidental note made of a moderate pericardial effusion. US/US abdomen limited IMPRESSION: 1. Gallbladder wall thickening, mild pericholecystic fluid, gallstones, and positive sonographic Rosas's sign. Findings are highly suspicious for acute cholecystitis. 2. Mild hepatic enlargement. Liver otherwise normal. 3. No biliary dilatation. 4. Moderate-sized pericardial effusion. Electronically signed by: Luke Valdivia MD 05/22/2025 12:31 PM EDT
--- NOTE | ~2025-05-22 | CT_ITS ---
EXAMINATION: CT CHEST ANGIOGRAPHY WITH IV CONTRAST INDICATION: sob COMPARISON: There are no prior studies available for comparison. TECHNIQUE: Helical CT scan of the chest was performed following administration of intravenous contrast (65 mL Omnipaque 350). The contrast bolus was timed to optimally opacify the pulmonary arteries. Thin sections were obtained through the pulmonary arteries. Coronal and sagittal reformatted images were generated. 3D/MIP reconstructed images are also obtained and reviewed. This CT exam was performed with one or more of the following dose reduction techniques: automated exposure control, adjustment of the mA and/or kV according to patient size, use of iterative reconstruction technique. DLP: 122 mGy-cm CHEST: THYROID: The thyroid gland is unremarkable. PULMONARY ARTERIES: No intraluminal filling defects are identified within the pulmonary arteries to suggest pulmonary emboli. LUNGS: There are scattered 3-4 mm nodules at the right lung apex (series 6, image 16), in the right middle lobe (series 6, image 105), in the left upper lobe abutting the major fissure (series 6, image 36), and in the left lower lobe (series 6, image 101). There are no focal airspace opacities. MEDIASTINUM: There is no mediastinal lymphadenopathy. LADONNA: There is no hilar lymphadenopathy. CARDIOVASCULATURE: The heart is normal in size. There is a pericardial effusion measuring up to 12 mm in thickness. The thoracic aorta is normal in caliber. DEGREE OF CORONARY CALCIFICATION: mild PLEURA: There is no pleural effusion. No pneumothorax. MAIN AIRWAYS: The mainstem bronchi and proximal branches are patent. AXILLA: There is no axillary lymphadenopathy. UPPER ABDOMEN: The visualized portions of the liver, spleen, and adrenals are unremarkable. BONES AND SOFT TISSUES: Unremarkable. CT/CT angio chest PE protocol IMPRESSION: 1. No evidence of pulmonary emboli. 2. Small pericardial effusion. 3. Scattered 3-4 mm bilateral pulmonary nodules as described. Follow-up should be performed based on Fleischner Society guidelines below. Fleischner Criteria for pulmonary nodule follow-up SOLID NODULES: Low risk patient: <6mm: no follow-up 6-8mm: 6 month follow-up CT >8mm: PET/Biopsy/ 3 month follow-up CT High risk patient: <6mm: 12 month follow-up CT 6-8mm: 6 month follow-up CT >8mm: PET/Biopsy/ 3 month follow-up CT SUB-SOLID/GROUNDGLASS NODULES: All patients: > or = 6mm: 6 month follow-up CT *Please note that in patients in the following categories, the Fleischner criteria do not apply: Immunocompromised, lung cancer screening population, age below 35, and patients with known malignancy Electronically signed by: Onur Arellano MD 05/23/2025 10:52 AM EDT
--- NOTE | ~2025-05-22 | CT_ITS ---
EXAMINATION: CT ABDOMEN PELVIS WITH IV CONTRAST HISTORY: abd pain, concern for SBO COMPARISON: There are no prior studies for available comparison. TECHNIQUE: CT scan of the abdomen and pelvis was performed following administration of 85 mL Omnipaque 350 using standard departmental protocol. Coronal and sagittal reformatted images were generated and reviewed. This CT exam was performed with one or more of the following dose reduction techniques: automated exposure control, adjustment of the mA and/or kV according to patient size, use of iterative reconstruction technique. DLP: mGy-cm FINDINGS: LOWER CHEST: The visualized lung bases are clear. There is no pleural effusion. CARDIOVASCULATURE: The heart is normal in size. There is a moderate pericardial effusion which is incompletely imaged, but measures at least 1.5 cm in thickness. LIVER: The liver is normal in size and contour. There is a 10 mm probable cyst at the dome of the right lobe. There is mild periportal edema. The hepatic and portal veins are patent. GALLBLADDER / BILE DUCTS: The gallbladder is distended. There is probable pericholecystic fluid. No calcified gallstones are identified. There is no intra or extrahepatic biliary ductal dilatation. SPLEEN: The spleen is normal in size. No focal splenic lesion is identified. PANCREAS: The pancreas is unremarkable in appearance. ADRENAL GLANDS: Within normal limits. KIDNEYS/RETROPERITONEUM: No renal calculi are identified. There is no hydronephrosis. No renal masses are identified. LYMPH NODES: No abdominal or pelvic lymphadenopathy. VASCULATURE: The abdominal aorta is normal in caliber. There is a duplicated inferior vena cava. MESENTERY/PERITONEUM: No free fluid. No masses. There is no free intraperitoneal gas. STOMACH: Postsurgical changes are noted involving the stomach. SMALL BOWEL: The small bowel is normal in caliber. COLON: The colon is unremarkable. APPENDIX: Normal. URINARY BLADDER/PELVIC ORGANS: The urinary bladder is collapsed, limiting evaluation. The uterus and right ovary are unremarkable. There is a probable 2.4 cm left adnexal cystic structure. BONES / SOFT TISSUES: No suspicious bony or soft tissue abnormalities. CT/CT abdomen pelvis w IV con IMPRESSION: 1. No evidence of small bowel obstruction. 2. Distended gallbladder with probable pericholecystic fluid. Ultrasound evaluation is suggested. 3. 2.4 cm cystic structure in the pelvis likely related to the left ovary. This could be confirmed with ultrasound Electronically signed by: Onur Arellano MD 05/22/2025 11:34 AM EDT RP
--- NOTE | 2025-05-22 08:52 | ED_ITS ---
HPI - General Adult General Chief complaint: Abdominal Pain Stated complaint: ABD PAIN,NAUSEA X2H PER EMS Time Seen by Provider: 05/22/25 08:51 Source: patient and EMS Mode of arrival: EMS Limitations: no limitations History of Present Illness ED Provider: Tammi Langford PA-C HPI narrative: This is a 60 year old person assigned female at with a history of spasmodic torticollis, laparoscopic sleeve gastrectomy, fibromyalgia, vitamin B12 + A deficiencies, IBS, and asthma that presents for evaluation of abdominal pain. Her gastrectomy was completed with [facility] 04/10/2024. She reports that she has had abdominal pain for about a week but it is much worse today. She has been unable to eat or drink this morning due to the pain. She endorses nausea this morning that was improved with Zofran but she denies vomiting. Her last meal was late last night. She states that she passed four soft stools this morning and she was passing gas yesterday but has not passed gas yet today. Her pain is primarily in her left upper quadrant but radiates to her back. She endorses shortness of breath secondary to pain as well as fatigue but denies chest pain. She reports that after her gastric sleeve she lost more weight than intended and she is trying to gain some weight back. She endorses high levels of stress and some dietary changes lately due to caring for her disabled son and her sister. She denies any history of connective tissue disease or family history of AAA. She denies history of diabetes. Related Data Home Medications ?Medication ?Instructions ?Recorded ?Confirmed albuterol sulfate 90 mcg/actuation 1 inh inhalation Q4 -8H PRN sob 01/01/24 04/23/25 aerosol inhaler (Ventolin HFA) multivitamin 1 tab PO DAILY 02/19/2504/14 Previous Rx's ?Medication ?Instructions ?Recorded vitamin A palmitate 3,000 mcg 10,000 unit PO DAILY #90 caps 10/21/24 (10,000 unit) capsule Allergies Allergy/AdvReac Type Severity Reaction Status Date / Time duloxetine (From Cymbalta) AdvReac Intermediate Gastrointestinal Verified 04/23/25 10:50 Upset oxycodone (From Percocet) AdvReac Intermediate Vomiting Verified 04/23/25 10:50 venlafaxine (From Effexor) AdvReac Gastrointestinal Verified 05/22/25 08:53 Upset Review of Systems 2 Constitutional: Constitutional: Reports as per HPI Eyes: Eyes: Reports as per HPI ENT: Reports as per HPI Cardiovascular: Cardiovascular: Reports as per HPI Respiratory: Respiratory: Reports as per HPI Gastrointestinal: Gastrointestinal: Reports as per HPI Genitourinary: Genitourinary: Reports as per HPI Musculoskeletal: Musculoskeletal: Reports as per HPI Integumentary/Breasts: Skin/Breast: Reports as per HPI Neurologic: Reports as per HPI Psychiatric: Psychiatric: Reports as per HPI Endocrine: Endocrine: Reports as per HPI Hematologic/Lymphatic: Hematologic/Lymphatic: Reports as per HPI Allergic/Immunologic: Allergic/Immunologic: Reports as per HPI FOR[facility]LY [facility] Past Medical History Attestation statement: The following information was validated with the patient. Source: old records reviewed and nursing notes reviewed Medical History Obesity Torticollis Spasmodic torticollis History of tremor IBS (irritable bowel syndrome) Fatty liver Vocal cord dysfunction Unilateral vocal cord paralysis DJD (degenerative joint disease) Arthritis Back pain Seasonal depression Anxiety DJD (degenerative joint disease) Asthma Sleep apnea treated with continuous positive airway pressure (CPAP) Surgical History Hx of hand surgery S/P laparoscopic sleeve gastrectomy History of esophagogastroduodenoscopy (EGD) (02/14/24) Hx of umbilical hernia repair Hx of rotator cuff surgery Hx of colonoscopy Hx of oral surgery Family History Family History Mother Breast CA Father FH: prostate cancer Social History Social History Household Members: Family Housing: House Are you a 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 a significant other at home: Yes (sister w/dementia and son w/ autism-aunt will help post-op) Do you presently have visiting nurse or other home services: Yes Alcohol intake: never Patient Tobacco Use Status: Never used Tobacco Advance Directives: No Advance Directives Information Provided: Yes Physical Exam ED Vital Signs: Vital Signs - 24 hr 05/22/25 08:49 05/22/25 12:45 05/22/25 14:36 Temperature 97.5 F 97.6 F 98.1 F Pulse Rate 70 58 61 Respiratory Rate 18 14 14 Blood Pressure 109/67 92/63 104/64 Pulse Oximetry 100 100 100 Oxygen Delivery Method Room Air Room Air Room Air BMI result Body Mass Index 18.8 Const General: cooperative, no acute distress, alert and awake Nutritional Appearance: well nourished Orientation/consciousness: patient oriented x3 HENMT Head: Yes normal to inspection and Yes atraumatic Ears: hearing grossly normal bilaterally and external ears normal General nose exam: Normal external nose present, no nasal discharge noted and no epistaxis Face and sinus: Yes normal facial exam, No abrasion and No laceration Mouth: no drooling and no muffled voice Eyes General: appearance normal, both eyes and all related structures Periorbital: periorbital findings normal Eyelids: Yes eyelids normal Conjunctivae: conjunctivae normal Pupils: Equal, round and reactive pupils present EOM: EOMs intact bilaterally Neck Neck: Yes full ROM and Yes torticollis Resp Effort & Inspection: normal respiratory effort and able to speak in complete sentences Auscultation: clear to auscultation bilaterally Cardio Rate: regular rate GI Palpation (GI): Soft to palpation, not firm, Tenderness to palpation present (GI), no guarding, not rigid and no masses Skin General skin exam: no rashes or lesions noted Neuro General: patient oriented x3 and moves all extremities Cranial nerves: Yes Equal, round and reactive pupils present Cognition (Neuro): normal cognition Extrem General: Yes normal to inspection, Yes full ROM and Yes capillary refill normal Psych Appearance: grossly normal Mental Status: mental status grossly normal Affect: normal affect Attitude: cooperative Thought process: Normal thought process present Thought content: Normal thought content present Insight: Good insight present (Psych) Medications Administered Discontinued Medications Generic Name Dose Route Start Last Admin Trade Name Freq PRN Reason Stop Dose Admin Diatrizoate Meglum/Diatrizoate Sod 30 ml 05/22/25 11:11 05/22/25 11:11 Diatrizoate Meglumine, Sodium 30 Ml Solution PO 05/22/25 11:12 30 ml ONCE ONE Administration Iohexol 100 ml 05/22/25 11:19 05/22/25 11:20 Iohexol 350 Mg/Ml 100 Ml Infus..Btl IV 05/22/25 11:20 85 ml ONCE ONE Administration Morphine Sulfate 4 mg 05/22/25 09:11 05/22/25 09:29 Morphine Sulfate 4 Mg/Ml Cartridge IVPUSH 05/22/25 09:12 4 mg ONCE ONE Administration Protocol Medical Decision Making Medical Decision Making [facility] Narrative: spasmodic torticollis, laparoscopic sleeve gastrectomy, fibromyalgia, vitamin B12 + A deficiencies, IBS, and asthma that presents for evaluation of abdominal pain. Patient's physical exam was as noted in the physical exam portion of this note. Patient's blood work showed a direct bili of 0.6, AST of 57, and ALT of 44. Patient's urine showed no acute process. Patient's EKG was unremarkable. Patient's CT abd/pelvis showed a distended gallbladder for which the radiologist recommended obtaining an US. Patient's RUQ US showed gallbladder wall thickening + mild pericholecystic fluid + gallstones + positive rosas's sign and they are suggesting she has an acute cholecystitis and an incidental finding of a pericardial effusion. I spoke with the general surgery team because the patient declined to have the bariatric team involved in her care during this hospitalization. The general surgery team evaluated the patient and recommended medical admission for further work up of her incidental pericardial effusion and general surgery consultation. I spoke to the hospitalist team who agreed to admission. I explained my physical exam findings as well as all test results to the patient. I answered all questions asked by the patient. Patient verbalized agreement and understanding with this treatment plan and admission. Differential Diagnosis Differential Diagnoses: The differential diagnosis associated with the presentation includes Cholecystitis Choledocolithiasis Admission/Observation Consideration of admission/observation: Escalation of care including admission/observation considered Patient admitted as noted in the MDM Rationale portion of this note. Consult Healthcare Provider Management of the patient was discussed with: Hospitalist (agreed to admission as noted in the MDM Rationale portion of this note. ) and Director Graphics (Spoke with the general surgery team as noted in the MDM Rationale portion of this note. ) Lab Data [facility] Lab Attestation statement: I reviewed the patient's lab results. My interpretation of these results are in the MDM Rationale portion of this note. 05/22/25 09:29 05/22/25 09:29 Labs: Lab Results 05/22/25 Range/Units 09:29 WBC 8.1 (4.8-10.8) X10*3/uL RBC 4.59 (4.20-5.50) X10*6/uL Hgb 13.5 (12.0-16.0) g/dl Hct 41.0 (37.0-47.0) % MCV 89.3 (80.0-98.0) fL MCH 29.4 (27.0-33.0) pg MCHC 32.9 (31.0-35.0) g/dl RDW 12.8 (11.0-16.0) % Plt Count 159 L (160-400) X10*3/uL MPV 10.2 (9.4-12.3) fL Immature Gran % (Auto) 0.2 (0.0-0.4) % Neut % (Auto) 74.3 H (45-73) % Lymph % (Auto) 20.3 (20-40) % Fleming % (Auto) 4.5 (2-11) % Eos % (Auto) 0.2 (0-4) % Baso % (Auto) 0.5 (0-2) % Lymph # (Auto) 1.6 (1.2-4.9) X10*3/uL Fleming # (Auto) 0.4 (0.1-1.2) X10*3/uL Eos # (Auto) 0.0 (0.0-0.4) X10*3/uL Baso # (Auto) 0.0 (0.0-0.2) X10*3/uL Abs Immat Gran (auto) 0.02 (0.00-0.03) X10*3/uL Absolute Neuts (auto) 6.0 (2.0-8.3) x10*3/uL Absolute Nucleated RBC 0.000 (0.0-0.012) X10*3/uL Nucleated RBC % (auto) 0.0 (0.0-0.2) /100WBC Sodium 141 (135-145) mmol/L Potassium 4.4 (3.3-5.1) mmol/L Chloride 106 (96-108) mmol/L Carbon Dioxide 30 H (22-29) mmol/L Anion Gap 9 L (12-20) BUN 18 H (9-16) mg/dL Creatinine 0.62 (0.5-1.4) mg/dL Estim Creat Clear Calc 74.0 Estimated GFR > 60 Random Glucose 105 (60-115) mg/dL Calcium 9.6 (8.4-10.2) mg/dL Total Bilirubin 1.0 (0.0-1.0) mg/dL Direct Bilirubin 0.6 H (0.0-0.5) mg/dL AST 57 H (5-31) U/L ALT 44 H (0-31) U/L Alkaline Phosphatase 48 (39-117) U/L Total Protein 6.5 (6.5-8.0) g/dL Albumin 4.3 (3.5-5.0) g/dL Lipase 33 (8-78) U/L Urine Color Yellow Urine Appearance Cloudy Urine pH 8.0 (5.0-9.0) Ur Specific [place] >= 1.030 H (1.005-1.025) Urine Protein Negative (Neg-Trace) mg/dL Urine Glucose (UA) Negative (Negative) mg/dL Urine Ketones Negative (Negative) mg/dL Urine Blood Negative (Negative) Urine Nitrite Negative (Negative) Ur Leukocyte Esterase Negative (Negative) Urine RBC 0-2 (0-2) /HPF Urine WBC 0-5 (0-5) /HPF Ur Squamous Epith Cells 0-2 (0-2) /HPF Urine Bacteria None Seen (None Seen) Hyaline Casts 0-2 (0-2) /LPF Independent Interpretation I performed an independent interpretation of an: EKG, Ultrasound and CT Scan Interpretation: My interpretation is in agreement with the radiologist's impression of these imaging studies. L Reason for Exam: abd pain, concern for SBO EXAMINATION: CT ABDOMEN PELVIS WITH IV CONTRAST HISTORY: abd pain, concern for SBO COMPARISON: There are no prior studies for available comparison. TECHNIQUE: CT scan of the abdomen and pelvis was performed following administration of 85 mL Omnipaque 350 using standard departmental protocol. Coronal and sagittal reformatted images were generated and reviewed. This CT exam was performed with one or more of the following dose reduction techniques: automated exposure control, adjustment of the mA and/or kV according to patient size, use of iterative reconstruction technique. DLP: mGy-cm FINDINGS: LOWER CHEST: The visualized lung bases are clear. There is no pleural effusion. CARDIOVASCULATURE: The heart is normal in size. There is a moderate pericardial effusion which is incompletely imaged, but measures at least 1.5 cm in thickness. LIVER: The liver is normal in size and contour. There is a 10 mm probable cyst at the dome of the right lobe. There is mild periportal edema. The hepatic and portal veins are patent. GALLBLADDER / BILE DUCTS: The gallbladder is distended. There is probable pericholecystic fluid. No calcified gallstones are identified. There is no intra or extrahepatic biliary ductal dilatation. SPLEEN: The spleen is normal in size. No focal splenic lesion is identified. PANCREAS: The pancreas is unremarkable in appearance. ADRENAL GLANDS: Within normal limits. KIDNEYS/RETROPERITONEUM: No renal calculi are identified. There is no hydronephrosis. No renal masses are identified. LYMPH NODES: No abdominal or pelvic lymphadenopathy. VASCULATURE: The abdominal aorta is normal in caliber. There is a duplicated inferior vena cava. MESENTERY/PERITONEUM: No free fluid. No masses. There is no free intraperitoneal gas. STOMACH: Postsurgical changes are noted involving the stomach. SMALL BOWEL: The small bowel is normal in caliber. COLON: The colon is unremarkable. APPENDIX: Normal. URINARY BLADDER/PELVIC ORGANS: The urinary bladder is collapsed, limiting evaluation. The uterus and right ovary are unremarkable. There is a probable 2.4 cm left adnexal cystic structure. BONES / SOFT TISSUES: No suspicious bony or soft tissue abnormalities. CT/CT abdomen pelvis w IV con IMPRESSION: 1. No evidence of small bowel obstruction. 2. Distended gallbladder with probable pericholecystic fluid. Ultrasound evaluation is suggested. 3. 2.4 cm cystic structure in the pelvis likely related to the left ovary. This could be confirmed with ultrasound Electronically signed by: Onur Arellano MD 05/22/2025 11:34 AM EDT Dictated By: Onur Arellano MD Signed By: Electronically signed by Onur Arellano MD 05/22/25 1134 Reason for Exam: RUQ pain EXAMINATION: US ABDOMEN LIMITED CLINICAL INFORMATION: Evaluate liver, gallbladder, and bile ducts. Right upper quadrant pain. COMPARISON: Correlation made with CT abdomen and pelvis performed earlier same day. TECHNIQUE: Real-time imaging of the liver, gallbladder, and bile ducts was performed. FINDINGS: LIVER: Liver is mildly enlarged. The right hepatic lobe measures 19.3 cm. The liver contour is normal. Parenchymal echogenicity is normal. No focal hepatic lesion. There is no intrahepatic biliary duct dilatation seen. GALLBLADDER: The gallbladder demonstrates intraluminal gallstones. There is mild wall thickening and minimal pericholecystic fluid present. There was a positive sonographic Rosas's sign at the time of exam. COMMON BILE DUCT: Normal in caliber measuring 0.2 cm in diameter. FREE FLUID: No ascites present. Incidental note made of a moderate pericardial effusion. US/US abdomen limited IMPRESSION: 1. Gallbladder wall thickening, mild pericholecystic fluid, gallstones, and positive sonographic Rosas's sign. Findings are highly suspicious for acute cholecystitis. 2. Mild hepatic enlargement. Liver otherwise normal. 3. No biliary dilatation. 4. Moderate-sized pericardial effusion. Electronically signed by: Luke Valdivia MD 05/22/2025 12:31 PM EDT RP Dictated By: Luke Valdivia MD Signed By: Electronically signed by Luke Valdivia MD 05/22/25 1231 I independently interpreted this EKG and am in agreement with the below findings: Vent. Rate: 57 BPM Atrial Rate: 57 BPM P-R Int: 134 ms QRS Dur: 72 ms QT Int: 436 ms P-R-T Axes: 35 51 77 degrees QTcB Int: 424 ms Sinus bradycardia Low voltage QRS Nonspecific T wave abnormality When compared with ECG of 19-Jan-2024 08:11, Nonspecific T wave abnormality, worse in Inferior leads Nonspecific T wave abnormality now evident in Lateral leads DD/ 1521 Radiology Impression Discussion of test interpretation with radiology: I have reviewed the radiologist's reading. Independent Historian Clinical information obtained from an independent historian. History obtained from or confirmed by: EMS (EMS provided additional history and confirmed the history provided by the patient. ) Critical Care Time Critical Care Time Critical Care Time: Yes Total Critical Care Time: 46 Attestation: I spent 46 minutes of Critical Care Time with this patient. This does not include time spent on separately reported billable procedures. Discharge Plan Discharge Clinical Impression: Acute cholecystitis, Abdominal pain, Pericardial effusion Patient Disposition: Admitted As Inpatient
[2025-05-22 09:35] LABS: MANUAL DIFF FLAG NO
[2025-05-22 09:36] LABS: Hematocrit 41.0 % (37.0-47.0); Hemoglobin 13.5 g/dl (12.0-16.0); Imm Gran Abs Auto 0.02 X10*3/uL (0.00-0.03); Imm Gran Pct Auto 0.2 % (0.0-0.4); Lymphocytes Absolute Auto 1.6 X10*3/uL (1.2-4.9); Mean Corpuscular HGB Conc 32.9 g/dl (31.0-35.0); Mean Corpuscular Hemoglobin 29.4 pg (27.0-33.0); Mean Corpuscular Volume 89.3 fL (80.0-98.0); NRBC Abs Auto 0.000 X10*3/uL (0.0-0.012); NRBC Pct Auto 0.0 /100WBC (0.0-0.2); Platelet Count 159 X10*3/uL (160-400); Red Blood Count 4.59 X10*6/uL (4.20-5.50); White Blood Count 8.1 X10*3/uL (4.8-10.8)
[2025-05-22 09:38] LABS: Appearance Urine Cloudy; Glucose Urine UA Negative (Negative); PH 8.0 (5.0-9.0); Specific Gravity - Urine >= 1.030 (1.005-1.025)
[2025-05-22 09:53] LABS: Alanine Aminotransferase 44 U/L (0-31); Albumin Level 4.3 g/dL (3.5-5.0); Alkaline Phosphatase 48 U/L (39-117); Anion Gap 9 (12-20); Aspartate Amino Transferase 57 U/L (5-31); Blood Urea Nitrogen 18 mg/dL (9-16); Calcium 9.6 mg/dL (8.4-10.2); Carbon Dioxide 30 mmol/L (22-29); Chloride 106 mmol/L (96-108); Creatinine Clr Calc Pharmacy 74.0; Estimated Glomerular Filt Rate > 60; Lipase 33 U/L (8-78); Potassium 4.4 mmol/L (3.3-5.1); Sodium 141 mmol/L (135-145); Total Protein 6.5 g/dL (6.5-8.0)
[2025-05-22] MEDS: iohexoL 350 MG/ML 100 ML INFUS..BTL IV (11:20)
--- NOTE | 2025-05-22 14:30 | P.CONGS_ITS ---
History of Present Illness Consult details Consult date: 05/22/25 Reason for consult: gallstones Requesting physician: Tammi Langford Narrative: 60 year old female with a PMH of spasmodic torticollis, laparoscopic sleeve gastrectomy (2023), fibromyalgia, and asthma that presented for evaluation of abdominal pain. She reports she has been having epigastric pain for quite some time now usually after eating. She attributed this to her sleeve gastrectomy. It usually resolved on its own without any intervention. She reports that the pain became so severe over the past few days and radiated to her chest and upper back which was new. She reports nausea without vomiting due to the severity of her pain. She denies fevers, chills, diarrhea, melena, bloody stools, recent sick contacts. She does report worsening shortness of breath over the past few months and has been having more difficulty time completing her yard work. Due to the severity of the pain and generally feeling unless, she called EMS and presented to the ED for evaluation. Labs were significant for direct bili of 0.6, AST/ALT 57/44. CT scan abd pelvis was obtained which showed moderate pericardial effusion, mild periportal edema, pericholecystic fluid and a distended GB. ABD US was then obtained which showed gallstones within the lumen but not impacted with minimal wall thickening, no ductal dilatation. General surgery consult was obtained. She reports the pain has nearly resolved but she hasn't eaten since last night. She reports a FH of heart disease in both her parents. Review of Systems 2 Review of Systems: Yes all other systems are reviewed and are negative [facility] Past Medical History Medical History (Updated 05/22/25 @ 14:49 by Cristina Lynne PA-C) Obesity Torticollis Spasmodic torticollis History of tremor IBS (irritable bowel syndrome) Fatty liver Vocal cord dysfunction Unilateral vocal cord paralysis DJD (degenerative joint disease) Arthritis Back pain Seasonal depression Anxiety DJD (degenerative joint disease) Asthma Sleep apnea treated with continuous positive airway pressure (CPAP) Family History Family History Mother Breast CA Father FH: prostate cancer Surgical History Surgical History (Updated 04/23/25 @ 10:51 by Eladia Carbone CMA) Hx of hand surgery S/P laparoscopic sleeve gastrectomy History of esophagogastroduodenoscopy (EGD) (02/14/24) Hx of umbilical hernia repair Hx of rotator cuff surgery Hx of colonoscopy Hx of oral surgery Social History Social History Household Members: Family Housing: House Are you a primary vp care management to a significant other at home: Yes (sister w/dementia and son w/ autism-aunt will help post-op) Do you presently have visiting nurse or other home services: Yes Alcohol intake: never Patient Tobacco Use Status: Never used Tobacco Advance Directives: No Advance Directives Information Provided: Yes Meds Allergies Allergy/AdvReac Type Severity Reaction Status Date / Time duloxetine (From Cymbalta) AdvReac Intermediate Gastrointestinal Verified 04/23/25 10:50 Upset oxycodone (From Percocet) AdvReac Intermediate Vomiting Verified 04/23/25 10:50 venlafaxine (From Effexor) AdvReac Gastrointestinal Verified 05/22/25 08:53 Upset Home Medications ?Medication ?Instructions ?Recorded ?Confirmed ?Last Taken ?Type albuterol sulfate 90 mcg/actuation 1 inh inhalation Q4 -8H PRN sob 01/01/24 04/23/25 Unknown History aerosol inhaler (Ventolin HFA) multivitamin 1 tab PO DAILY 02/19/2504/14 Unknown History Physical Exam 2 Vital Signs: Vital Signs: Last Vital Signs Temp 97.6 F 05/22/25 12:45 Pulse 58 05/22/25 12:45 Resp 14 05/22/25 12:45 BP 92/63 05/22/25 12:45 Pulse Ox 100 05/22/25 12:45 O2 Del Method Room Air 05/22/25 12:45 BMI result Body Mass Index 18.8 Const: General: comfortable, no acute distress and alert Nutritional Appearance: thin Orientation/consciousness: patient oriented x3 Resp: Effort & Inspection: normal respiratory effort GI: Inspection: No distended and Yes scar (well healed surgical incisions of upper abdomen ) Palpation (GI): Soft to palpation, Tenderness to palpation present (GI) (mild RUQ/epigastric ) Rosas's sign negative and with no rebound tenderness and no guarding Skin: General skin exam: no rashes or lesions noted and no jaundice Neuro: General: patient oriented x3 and moves all extremities Results Labs 05/22/25 09:29 05/22/25 09:29 Labs: Abnormal lab results 05/22/25 Range/Units 09:29 Plt Count 159 L (160-400) X10*3/uL Neut % (Auto) 74.3 H (45-73) % Carbon Dioxide 30 H (22-29) mmol/L Anion Gap 9 L (12-20) BUN 18 H (9-16) mg/dL Direct Bilirubin 0.6 H (0.0-0.5) mg/dL AST 57 H (5-31) U/L ALT 44 H (0-31) U/L Ur Specific [place] >= 1.030 H (1.005-1.025) Short CBC 05/22/25 Range/Units 09:29 WBC 8.1 (4.8-10.8) X10*3/uL Hgb 13.5 (12.0-16.0) g/dl Hct 41.0 (37.0-47.0) % Plt Count 159 L (160-400) X10*3/uL BMP 05/22/25 09:29 Sodium 141 Potassium 4.4 Chloride 106 Carbon Dioxide 30 H BUN 18 H Creatinine 0.62 Calcium 9.6 Liver Function 05/22/25 Range/Units 09:29 Total Bilirubin 1.0 (0.0-1.0) mg/dL Direct Bilirubin 0.6 H (0.0-0.5) mg/dL AST 57 H (5-31) U/L ALT 44 H (0-31) U/L Alkaline Phosphatase 48 (39-117) U/L Albumin 4.3 (3.5-5.0) g/dL Urine 05/22/25 Range/Units 09:29 Urine Color Yellow Urine Appearance Cloudy Urine pH 8.0 (5.0-9.0) Ur Specific [place] >= 1.030 H (1.005-1.025) Urine Protein Negative (Neg-Trace) mg/dL Urine Glucose (UA) Negative (Negative) mg/dL All other labs normal. Imaging Abdomen CT scan report/results: report reviewed and image reviewed Abdominal ultrasound report/results: report reviewed and image reviewed Additional studies: labs reviewed Assessment and Plan (1) Pericardial effusion: Status: Acute Plan 60 year old female with a PMH of spasmodic torticollis, laparoscopic sleeve gastrectomy ([facility] 2023), fibromyalgia, and asthma presenting with worsening epigastric pain that radiated to her chest and back. She was found to a distended gallbladder with possible pericholecystitic fluid on CT along with a moderate pericardial effusion and periportal edema. ABD US shows intraluminal gallstones but no impacted stone. Her abdomen is mildly tender in the RUQ/epigastric region. Uncertain etiology of her intermittent abdominal pain. She may have an ulcer from her gastrectomy or episodes of biliary colic but I do not think she has acute cholecystitis and wall thickening likely secondary from fluid overload. Would recommend further evaluation of the pericardial effusion. Will continue to follow. Procedures Date of Service Date of Service: 05/22/25
--- NOTE | 2025-05-22 14:53 | CA_ITS ---
Transthoracic Echocardiogram Patient (Last, First, Middle): Ruth Stallworth, Gender: F Date of : 1965 Age: 60 Procedure Date: 05/22/2025 Procedure Type: Transthoracic Echocardiogram Location: ER Height: 162.56 cm Weight: 49.44 kg BSA: 1.51 m2 Heart Rate: 56 bpm BP: 128 / 74 mmHg License Distributor: JADA Loco MD: Vi FERREIRA Lighting Technician: Jarrod Armenta MD Symptoms: ?pericardial effusion Study Quality: Adequate ECG Rhythm: Bradycardia Conclusions: - 1. Large loculated pericardial effusion over the right-sided chambers without clear signs of tamponade noted with mildly dilated IVC 2. Normal LV ejection fraction 3. Normal cardiac valvular Dopplers 4. Normal RV systolic pressure Findings Left Ventricle Normal left ventricular size, thickness, and systolic function. The visually estimated ejection fraction is between 65-70%. Diastolic function is normal for age. Right Ventricle Normal right ventricular cavity size and systolic function. Atria Both atria are normal in size. There is no evidence of interatrial shunt. Aortic Valve Normal aortic valve structure and function. There is no aortic valve stenosis. There is no aortic valve regurgitation. Mitral Valve Normal mitral valve structure and function. There is trace mitral valve regurgitation. There is no mitral valve stenosis. Pulmonic Valve The pulmonic valve is likely normal. Tricuspid Valve Normal tricuspid valve structure. There is trace tricuspid valve regurgitation. The right ventricular systolic pressure is 17 mmHg. Normal right atrial pressure. Great Vessels All visible segments of the aorta are normal in size. The pulmonary artery was not well visualized. Venous The inferior vena cava is normal in size. Pericardium/Pleural There is a large loculated pericardial effusion overlying the right ventricle and right atrium. There are no definitive echocardiographic findings of tamponade physiology. The inferior vena cava is dilated with reduced respiratory variability. No discernable variation of the mitral valve and tricuspid valve Doppler velocities with respiration. Prior Study Comparison No prior study available for comparison. Measurements 2D Linear Measurements IVSd: 0.74 0.6-0.9/0.6-1.0 cm LVIDd: 4.13 3.9-5.3/4.2-5.9 cm LVIDd Index: 2.74 2.4-3.2/2.2-3.1 cm/m2 LVIDs: 2.50 2.0-3.6 cm LVPWd: 0.83 0.7-1.1 cm LA Diam: 3.00 2.7-3.8/3.0-4.0 cm LAIDs Index: 1.99 1.5-2.3 cm/m2 LV Mass: 119.95 67-162/88-224 g LV Mass Index: 79.43 43-95/49-115 g/m2 LVOT Diam: 1.90 3.0+(-)1.3 cm 2D Systolic Function EF 4C: 66.30 >55% EF 2C: 69.50 >55% EF BiP: 66.60 >55% Mitral Valve MV Pk E: 0.70 MV PK A: 0.49 MV Decel Time: 259.00 E/A: 1.40 E'Lateral: 9.25 E'Medial: 9.14 E/E' Med: 7.70 E/E' Lat: 7.60 PHT: 76.00 MVA PHT: 2.89 Decel Gray: 2.72 Aortic Valve AoV Pk Adlair: 1.19 AoV Mn [place]air: 0.79 AoV VTI: 0.26 AoV Pk Grad: 6.00 Aov Mn Grad: 3.00 BRANDI Cont.VTI: 2.55 LVOT LVOT Pk [place]: 1.01 LVOT Mn [place]: 0.67 LVOT VTI: 0.23 LVOT Pk Grad: 4.00 LVOT Mn Grad: 2.00 LVOT Diam: 1.90 LVOT Area: 2.84 Diastolic Function MV Pk E: 0.70 MV Pk A: 0.49 E/A: 1.40 E'Medial: 9.14 E/E' Med: 7.70 E' Laterial: 9.25 E/E' Lat: 7.60 Tricuspid Valve TR Pk [place]air: 1.84 TR Pk Grad: 14.00 RA Press: 3.00 RVSP: 17.00 Great Vessels Aorta Sinus of Valsalva: 2.90 2.0-3.5 cm Ao Asc: 2.90 2.1-3.4 cm Ao Arch: 2.50 Pulmonary Veins Pulm Vein S/D 1.30 Pulmonary Valve PV Pk Aldair: 0.81 Peak PV Grad: 3.00 Updated in Other Vendor System with Status of Final Jarrod Armenta MD electronically signed on 05/22/2025 5:21:31 PM with status of Final
--- NOTE | 2025-05-22 15:00 | ECG_ITS ---
Test Reason : PERICARDINAL EFFUSION Blood Pressure : */* mmHG Vent. Rate : 57 BPM Atrial Rate : 57 BPM P-R Int : 134 ms QRS Dur : 72 ms QT Int : 436 ms P-R-T Axes : 35 51 77 degrees QTcB Int : 424 ms Sinus bradycardia Low voltage QRS Nonspecific T wave abnormality Abnormal ECG When compared with ECG of 19-Jan-2024 08:11, Nonspecific T wave abnormality, worse in Inferior leads Nonspecific T wave abnormality now evident in Lateral leads Referred By: Tammi Langford Electronically Signed By: NAILA MELCHOR MD
--- NOTE | 2025-05-22 15:31 | PHA.MEDREC ---
Pharmacy Consult ? Medication Reconciliation Pharmacy has completed the medication reconciliation.
--- NOTE | 2025-05-22 15:47 | HO.NURTONUR ---
Ruth is a 60 yo female BIBA for reports of abd pain 04/23 to LUQ starting at approx 0500 this morning. Hx of gastric sleeve 03/2024. Labs showed elevated bilirubin, AST/ALT. Abd CT showed distended gallbladder and incidental finding of pericardial effusion. Pt will need echo. Abdominal U/S showed gall stones. General surgery consulted. Pt receiving IV morphine for pain with moderate relief. Pt is A/O x 3, ambulatory/continent. # 20 to [facility].
[2025-05-22 16:39] LABS: Troponin-I High Sensitivity < 2.7 ng/L (<3.5-17.0)
--- NOTE | 2025-05-22 16:55 | P.HPHOSP_ITS ---
History of Present Illness Date of Service: 05/22/25 Attending physician on admission: [facility] Chief Complaint: abdominal pain This is a 60-year-old female with history of spasmodic torticollis, laparoscopic sleeve gastrectomy in 2023, asthma who came to the emergency department today due to abdominal pain. Patient states for the past 1 week she is having epigastric abdominal pain which is worse after eating. She has had associated nausea but no vomiting diarrhea or fever. She has never had any similar pain previously. In the emergency department she was noted to have slight elevation in her LFTs. She underwent abdominal ultrasound which showed gallbladder wall thickening, pericholecystic fluid, gallstones and positive Rosas sign, findings highly suspicious for acute cholecystitis. However she was seen in the emergency department by General surgery who did not feel that her physical exam was consistent with acute cholecystitis. In addition her imaging showed concern for moderate size pericardial effusion, she underwent urgent echocardiogram which showed loculated right effusion with no overt signs of tamponade. Patient reports 2 days of dyspnea on exertion, she denies any chest pain, dizziness, palpitations. She denies fever or any recent illness. Review of Systems 2 Review of Systems: Yes all other systems are reviewed and are negative Constitutional: Constitutional: Denies chills and Denies fever(s) Cardiovascular: Cardiovascular: Denies chest pain, Denies palpitations and Reports dyspnea on exertion Respiratory: Respiratory: Denies cough and Reports dyspnea on exertion Gastrointestinal: Gastrointestinal: Reports abdominal pain, Reports nausea and Denies vomiting Endocrine: Endocrine: Denies palpitations REPLACED BY [facility] Medical History Obesity Torticollis Spasmodic torticollis History of tremor IBS (irritable bowel syndrome) Fatty liver Vocal cord dysfunction Unilateral vocal cord paralysis DJD (degenerative joint disease) Arthritis Back pain Seasonal depression Anxiety DJD (degenerative joint disease) Asthma Sleep apnea treated with continuous positive airway pressure (CPAP) Family History Mother Breast CA Father FH: prostate cancer Surgical History Hx of hand surgery S/P laparoscopic sleeve gastrectomy History of esophagogastroduodenoscopy (EGD) (02/14/24) Hx of umbilical hernia repair Hx of rotator cuff surgery Hx of colonoscopy Hx of oral surgery Social History Household Members: Children and Other Household Members Other:: sister, son takes care of both Housing: House Are you a primary child care provider to a significant other at home: Yes (sister w/dementia and son w/ autism-aunt will help post-op) Do you presently have visiting nurse or other home services: No Alcohol intake: never Patient Tobacco Use Status: Never used Tobacco Meds Allergies Allergy/AdvReac Type Severity Reaction Status Date / Time duloxetine (From Cymbalta) AdvReac Intermediate Gastrointestinal Verified 04/23/25 10:50 Upset oxycodone (From Percocet) AdvReac Intermediate Vomiting Verified 04/23/25 10:50 venlafaxine (From Effexor) AdvReac Gastrointestinal Verified 05/22/25 08:53 Upset Active Medications: Current Medications Acetaminophen (Acetaminophen 325 Mg Tablet) 650 mg PO Q6H PRN PRN Reason: Pain, Mild 1-3,fever,headache Calcium Carbonate (Calcium Carbonate 750 Mg Tab.Chew) 750 mg PO Q4H PRN PRN Reason: Heartburn Heparin Sodium (Porcine) (Heparin Sodium,Porcine 5,000 Unit/Ml Vial) 5,000 unit SUBCUT Q12H HESHAM Lactated Ringer's (Lr) 1,000 mls @ 100 mls/hr IVCONT .Q10H HESHAM Magnesium Hydroxide (Milk Of Magnesia 30 Ml Oral.Susp) 30 ml PO DAILY PRN PRN Reason: Constipation Melatonin (Melatonin 3 Mg Tablet) 6 mg PO BEDTIME PRN PRN Reason: Insomnia Ondansetron HCl (Ondansetron Hcl 4 Mg/2 Ml Vial) 4 mg IVPUSH Q8H PRN PRN Reason: Nausea and Vomiting Sodium Chloride (0.9 % Sodium Chloride Flush 3 Ml Syringe) 3 ml IVFLUSH QSHIFT [facility] Home Medications ?Medication ?Instructions ?Recorded ?Confirmed ?Last Taken ?Type albuterol sulfate 90 mcg/actuation 1 inh inhalation QI D PRN Wheezing 01/01/24 05/22/25 Unknown History aerosol inhaler (Ventolin HFA) Physical Exam 2 Vital Signs and Narrative: Vital Signs: Last Vital Signs Temp 98.1 F 05/22/25 14:36 Pulse 60 05/22/25 16:01 Resp 14 05/22/25 14:36 BP 109/77 05/22/25 16:01 Pulse Ox 100 05/22/25 14:36 O2 Del Method Room Air 05/22/25 14:36 BMI result Body Mass Index 18.8 Const: General: cooperative, comfortable, alert and awake Nutritional Appearance: thin Orientation/consciousness: patient oriented x3 Resp: Effort & Inspection: normal respiratory effort, able to speak in complete sentences, no respiratory distress and no use of accessory muscles Cardio: Rate: regular rate GI: Inspection: No distended Palpation (GI): Soft to palpation Neuro: Other: tremor General: patient oriented x3, moves all extremities and CN's II-XI intact bilaterally Extrem: General: No pedal edema Results Labs 05/22/25 09:29 05/22/25 09:29 Labs: Laboratory Results - last 24 hr 05/22/25 09:29 MCV 89.3 MCH 29.4 MCHC 32.9 RDW 12.8 Plt Count 159 L MPV 10.2 Immature Gran % (Auto) 0.2 Neut % (Auto) 74.3 H Lymph % (Auto) 20.3 [place] % (Auto) 4.5 Eos % (Auto) 0.2 Baso % (Auto) 0.5 Lymph # (Auto) 1.6 [place] # (Auto) 0.4 Eos # (Auto) 0.0 Baso # (Auto) 0.0 Abs Immat Gran (auto) 0.02 Absolute Neuts (auto) 6.0 Absolute Nucleated RBC 0.000 Nucleated RBC % (auto) 0.0 Anion Gap 9 L Estim Creat Clear Calc 74.0 Estimated GFR > 60 Random Glucose 105 Calcium 9.6 Total Bilirubin 1.0 Direct Bilirubin 0.6 H AST 57 H ALT 44 H Alkaline Phosphatase 48 Troponin I High Sens < 2.7 Total Protein 6.5 Albumin 4.3 Lipase 33 Urine Color Yellow Urine Appearance Cloudy Urine pH 8.0 Ur Specific [place] >= 1.030 H Urine Protein Negative Urine Glucose (UA) Negative Urine Ketones Negative Urine Blood Negative Urine Nitrite Negative Ur Leukocyte Esterase Negative Urine RBC 0-2 Urine WBC 0-5 Ur Squamous Epith Cells 0-2 Urine Bacteria None Seen Hyaline Casts 0-2 Imaging Radiologist's Impressions: Impressions Abdomen/Pelvis CT 05/22/25 11:10 IMPRESSION: 1. No evidence of small bowel obstruction. 2. Distended gallbladder with probable pericholecystic fluid. Ultrasound evaluation is suggested. 3. 2.4 cm cystic structure in the pelvis likely related to the left ovary. This could be confirmed with ultrasound Electronically signed by: Onur Arellano MD 05/22/2025 11:34 AM EDT RP Abdomen Ultrasound 05/22/25 12:01 IMPRESSION: 1. Gallbladder wall thickening, mild pericholecystic fluid, gallstones, and positive sonographic Rosas's sign. Findings are highly suspicious for acute cholecystitis. 2. Mild hepatic enlargement. Liver otherwise normal. 3. No biliary dilatation. 4. Moderate-sized pericardial effusion. Electronically signed by: Luke Valdivia MD 05/22/2025 12:31 PM EDT RP Assessment and Plan (1) Pericardial effusion: Status: Acute (2) Abdominal pain: Qualifiers: Abdominal location: unspecified location Qualified Code(s): R10.9 - Unspecified abdominal pain Status: Acute Plan This is a 60-year-old female with history of sleeve gastrectomy, asthma, spasmodic torticollis who presents to the emergency department with abdominal pain found to have concern over acute cholecystitis and incidental finding of pericardial effusion Abdominal pain Associated elevation in LFTs, imaging concerning for acute cholecystitis Seen by General surgery, possible biliary colic does not feel this represents acute cholecystitis lipase low will start clear liquid diet, advance as tolerated Symptomatic support Trend LFTs pericardial effusion echo with loculated pericardial effusion without tamponade troponin negative, BNP low at 148 IVC dilated, will order pericardiocentesis - NPO at midnight IVF tele monitoring cardiology consultation shortness of breath denies other respiratory symptoms no fever, trop, BNP negative given pericardial effusion, will check CTA h/o asthma no wheezing on exam dvt ppx - mechanical devices Patient will likely require 2 midnight stay in the hospital for management of pericardial effusion further greenhouse specialist evaluation, workup shortness as well as close cardiac monitoring and monitoring of LFTs. Quality Stroke Does the patient have a stroke diagnosis?: No VTE Prior VTE?: No VTE Risk Level:: Medical - moderate - high VTE Device Contraindication: N/A - Device Ordered VTE Drug Contraindication: N/A - Med Ordered
[2025-05-22 17:03] LABS: NT Pro B Type Natriuretic Pept 148.0 pg/mL (<300)
[2025-05-22] MEDS: Lactated Ringers 1,000 ML 100 ML IVCONT (17:18)
--- NOTE | 2025-05-22 19:25 | PC.NURSE ---
Took over care from JEWEL Lindo, pt resting in bed, no sign of distress.
[2025-05-23] MEDS: Lactated Ringers 1,000 ML 125 ML IVCONT ×3 (02:00→22:16)
[2025-05-23 03:13] VITALS: BP 106/67; PULSE 58; RESP 16; TEMP 36.4; O2SAT 98
[2025-05-23 07:14] VITALS: BP 118/73; PULSE 62; RESP 18; TEMP 36.7; O2SAT 100
--- NOTE | 2025-05-23 07:43 | P.PNGS_ITS ---
Subjective Subjective Date of Service: 05/23/25 <Cristina Lynne PA-C - Last Filed: 05/23/25 07:52> 05/23/25 <Eder Cruz MD - Last Filed: 05/23/25 08:08> Interval history: Abdominal pain has completely resolved. Tolerated liquids yesterday without nausea, recurrent pain. Awaiting CTA chest and pericardiocentesis this morning. <Cristina Lynne PA-C - Last Filed: 05/23/25 07:52> Physical Exam 2 Vital Signs: Vital Signs: Last Vital Signs Temp 98.0 F 05/23/25 07:14 Pulse 62 05/23/25 07:14 Resp 18 05/23/25 07:14 BP 118/73 05/23/25 07:14 Pulse Ox 100 05/23/25 07:14 O2 Del Method Room Air 05/23/25 07:14 BMI result Body Mass Index 18.9 <Cristina Lynne PA-C - Last Filed: 05/23/25 07:52> Const: General: comfortable, no acute distress and alert <Cristina Lynne PA-C - Last Filed: 05/23/25 07:52> Resp: Effort & Inspection: normal respiratory effort and able to speak in complete sentences <ALLA Bearden Last Filed: 05/23/25 07:52> GI: Other: soft completely nontender <Cristina Lynne PA-C - Last Filed: 05/23/25 07:52> Skin: General skin exam: no rashes or lesions noted and no jaundice < Cristina Lynne PA-C - Last Filed: 05/23/25 07:52> Objective Data Active Medications Acetaminophen (Acetaminophen 325 Mg Tablet) 650 mg PO Q6H PRN PRN Reason: Pain, Mild 1-3,fever,headache Albuterol Sulfate (Albuterol Sulfate 90 Mcg 8 Gm Inhaler) 1 puff INHALE QID PRN PRN Reason: Wheezing Calcium Carbonate (Calcium Carbonate 750 Mg Tab.Chew) 750 mg PO Q4H PRN PRN Reason: Heartburn Lactated Ringer's (Lr) 1,000 mls @ 125 mls/hr IVCONT .Q8H [facility] Last Admin: 05/23/25 02:00 Dose: 125 mls/hr Documented By: OFELIA Magnesium Hydroxide (Milk Of Magnesia 30 Ml Oral.Susp) 30 ml PO DAILY PRN PRN Reason: Constipation Melatonin (Melatonin 3 Mg Tablet) 6 mg PO BEDTIME PRN PRN Reason: Insomnia Ondansetron HCl (Ondansetron Hcl 4 Mg/2 Ml Vial) 4 mg IVPUSH Q8H PRN PRN Reason: Nausea and Vomiting Sodium Chloride (0.9 % Sodium Chloride Flush 3 Ml Syringe) 3 ml IVFLUSH QSHIFT [facility] Last Admin: 05/22/25 23:02 Dose: Not Given Documented By: OFELIA Non-Admin Reason: IV Running <Cristina Lynne PA-C - Last Filed: 05/23/25 07:52> Labs CBC & Chem 7: 05/22/25 09:29 05/22/25 09:29 <Cristina Lynne PA-C - Last Filed: 05/23/25 07:52> Labs: Laboratory Results - last 24 hr 05/22/25 09:29 MCV 89.3 MCH 29.4 MCHC 32.9 RDW 12.8 Plt Count 159 L MPV 10.2 Immature Gran % (Auto) 0.2 Neut % (Auto) 74.3 H Lymph % (Auto) 20.3 Miller % (Auto) 4.5 Eos % (Auto) 0.2 Baso % (Auto) 0.5 Lymph # (Auto) 1.6 Miller # (Auto) 0.4 Eos # (Auto) 0.0 Baso # (Auto) 0.0 Abs Immat Gran (auto) 0.02 Absolute Neuts (auto) 6.0 Absolute Nucleated RBC 0.000 Nucleated RBC % (auto) 0.0 Anion Gap 9 L Estim Creat Clear Calc 74.0 Estimated GFR > 60 Random Glucose 105 Calcium 9.6 Total Bilirubin 1.0 Direct Bilirubin 0.6 H AST 57 H ALT 44 H Alkaline Phosphatase 48 Troponin I High Sens < 2.7 NT-Pro-B Natriuret Pep 148.0 Total Protein 6.5 Albumin 4.3 Lipase 33 TSH 1.99 Urine Color Yellow Urine Appearance Cloudy Urine pH 8.0 Ur Specific Orcas >= 1.030 H Urine Protein Negative Urine Glucose (UA) Negative Urine Ketones Negative Urine Blood Negative Urine Nitrite Negative Ur Leukocyte Esterase Negative Urine RBC 0-2 Urine WBC 0-5 Ur Squamous Epith Cells 0-2 Urine Bacteria None Seen Hyaline Casts 0-2 <Cristina Lynne PA-C - Last Filed: 05/23/25 07:52> Procedures Date of Service Date of Service: 05/23/25 <Cristina Lynne PA-C - Last Filed: 05/23/25 07:52> 05/23/25 <Eder Cruz MD - Last Filed: 05/23/25 08:08> Progress Note: A&P Assessment and plan (1) Pericardial effusion: Status: Acute <Cristina Lynne PA-C - Last Filed: 05/23/25 07:52> Assessment and Plan: 60 year old female who presented with epigastric abd pain worsening over the past week found to have nonimpacted gallstones, very mild pericholecystic fluid as well as periportal edema and pericardial effusion. There was concern for acute cholecystitis given the imaging however the mild pericholecystic fluid is likely due to the periportal edema instead of acute cholecystitis. Her WBC was also normal. Her abdominal pain has completely resolved without any antibiotic initiation and her abdomen is very benign. Can advance diet as tolerated following her procedure today. <Cristina Lynne PA-C - Last Filed: 05/23/25 07:52> 60 year old female who presented with epigastric abd pain worsening over the past week found to have nonimpacted gallstones, very mild pericholecystic fluid as well as periportal edema and pericardial effusion. There was concern for acute cholecystitis given the imaging however the mild pericholecystic fluid is likely due to the periportal edema instead of acute cholecystitis. Her WBC was also normal. Her abdominal pain has completely resolved without any antibiotic initiation and her abdomen is very benign. Can advance diet as tolerated following her procedure today. Patient seen and examined this morning. Continues to have some left-sided abdominal pain. Denies epigastric or right-sided abdominal pain. Overall feels much improved with no shortness of breath. She is awaiting pericardial centesis today. Should consider HIDA scan at some point to clarify gallbladder function. <Eder Cruz MD - Last Filed: 05/23/25 08:08> Time Spent With Patient Time: Total time managing care of this patient today ____ minutes. <Cristina Lynne PA-C - Last Filed: 05/23/25 07:52> Quality Stroke Does the patient have a stroke diagnosis?: No <Cristina Lynne PA-C - Last Filed: 05/23/25 07:52> VTE Prior VTE?: No <Cristina Lynne PA-C - Last Filed: 05/23/25 07:52> VTE Risk Level:: Medical - moderate - high <Cristina Lynne PA-C - Last Filed: 05/23/25 07:52> VTE Device Contraindication: N/A - Device Ordered <Cristina Lynne PA-C - Last Filed: 05/23/25 07:52> VTE Drug Contraindication: N/A - Med Ordered <Cristina Lynne PA-C - Last Filed: 05/23/25 07:52>
[2025-05-23 08:10] LABS: Hematocrit 39.2 % (37.0-47.0); Hemoglobin 12.9 g/dl (12.0-16.0); Mean Corpuscular HGB Conc 32.9 g/dl (31.0-35.0); Mean Corpuscular Hemoglobin 29.2 pg (27.0-33.0); Mean Corpuscular Volume 88.7 fL (80.0-98.0); NRBC Abs Auto 0.000 X10*3/uL (0.0-0.012); NRBC Pct Auto 0.0 /100WBC (0.0-0.2); Platelet Count 140 X10*3/uL (160-400); Red Blood Count 4.42 X10*6/uL (4.20-5.50); White Blood Count 3.1 X10*3/uL (4.8-10.8)
[2025-05-23 08:27] LABS: Alanine Aminotransferase 50 U/L (0-31); Albumin Level 4.0 g/dL (3.5-5.0); Alkaline Phosphatase 45 U/L (39-117); Anion Gap 12 (12-20); Aspartate Amino Transferase 37 U/L (5-31); Blood Urea Nitrogen 9 mg/dL (9-16); Calcium 9.5 mg/dL (8.4-10.2); Carbon Dioxide 29 mmol/L (22-29); Chloride 108 mmol/L (96-108); Creatinine Clr Calc Pharmacy 80.6; Estimated Glomerular Filt Rate > 60; Potassium 3.8 mmol/L (3.3-5.1); Sodium 145 mmol/L (135-145); Total Protein 5.8 g/dL (6.5-8.0)
--- NOTE | 2025-05-23 09:51 | MHC.CM.PN ---
IMM 05/23/25, Pt. lives with her sister and her autistic son. She does not use home care services, for DME, she uses a CPAP machine. HCP discussed, she will complete form here and it will be added to her chart. Her PCP is: JHON Jhaveri at [facility]. Pt. can arrange transportation home at [place], DCP: home, self care, CM to follow and assist with DCP.
[2025-05-23] MEDS: iohexoL 350 MG/ML 100 ML INFUS..BTL IV (10:39)
[2025-05-23 11:06] VITALS: BP 102/68; PULSE 67; RESP 18; TEMP 36.7; O2SAT 100
--- NOTE | 2025-05-23 11:53 | HO.PM.IMPN ---
Subjective Subjective Date of Service: 05/23/25 Interval History: f/u on abdominal pain, pericardial effusion and concern for cholecystitis no abd pain or shortness of breath today Physical Exam Vital Signs: Vital Signs: Last Vital Signs Temp 98.0 F 05/23/25 11:06 Pulse 67 05/23/25 11:06 Resp 18 05/23/25 11:06 BP 102/68 05/23/25 11:06 Pulse Ox 100 05/23/25 11:06 O2 Del Method Room Air 05/23/25 11:06 BMI result Body Mass Index 18.9 Objective Data Active Medications Acetaminophen (Acetaminophen 325 Mg Tablet) 650 mg PO Q6H PRN PRN Reason: Pain, Mild 1-3,fever,headache Albuterol Sulfate (Albuterol Sulfate 90 Mcg 8 Gm Inhaler) 1 puff INHALE QID PRN PRN Reason: Wheezing Calcium Carbonate (Calcium Carbonate 750 Mg Tab.Chew) 750 mg PO Q4H PRN PRN Reason: Heartburn Lactated Ringer's (Lr) 1,000 mls @ 125 mls/hr IVCONT .Q8H [facility] Last Admin: 05/23/25 02:00 Dose: 125 mls/hr Documented By: OFELIA Magnesium Hydroxide (Milk Of Magnesia 30 Ml Oral.Susp) 30 ml PO DAILY PRN PRN Reason: Constipation Melatonin (Melatonin 3 Mg Tablet) 6 mg PO BEDTIME PRN PRN Reason: Insomnia Ondansetron HCl (Ondansetron Hcl 4 Mg/2 Ml Vial) 4 mg IVPUSH Q8H PRN PRN Reason: Nausea and Vomiting Sodium Chloride (0.9 % Sodium Chloride Flush 3 Ml Syringe) 3 ml IVFLUSH QSHIFT [facility] Last Admin: 05/23/25 11:50 Dose: Not Given Documented By: LUIZA Non-Admin Reason: IV Running Labs 05/23/25 08:03 05/23/25 08:03 Labs: Laboratory Results - last 24 hr 05/22/25 05/23/25 09:29 08:03 MCV 88.7 MCH 29.2 MCHC 32.9 RDW 12.6 Plt Count 140 L MPV 9.8 Absolute Nucleated RBC 0.000 Nucleated RBC % (auto) 0.0 Anion Gap 12 Estim Creat Clear Calc 80.6 Estimated GFR > 60 Random Glucose 85 Calcium 9.5 Total Bilirubin 0.6 Direct Bilirubin 0.2 AST 37 H ALT 50 H Alkaline Phosphatase 45 Troponin I High Sens < 2.7 NT-Pro-B Natriuret Pep 148.0 Total Protein 5.8 L Albumin 4.0 TSH 1.99 Assessment and Plan (1) Pericardial effusion: Status: Acute (2) Acute cholecystitis: Status: Acute Plan This is a 60-year-old female with history of sleeve gastrectomy, asthma, spasmodic torticollis who presents to the emergency department with abdominal pain found to have concern over acute cholecystitis and incidental finding of pericardial effusion Abdominal pain Associated elevation in LFTs, imaging concerning for acute cholecystitis Seen by General surgery, possible biliary colic does not feel this represents acute cholecystitis lipase low will start clear liquid diet, advance as tolerated Symptomatic support Trend LFTs Surgery recommending considering HIDA to clarify diagnosis pericardial effusion echo with loculated pericardial effusion without tamponade troponin negative, BNP low at 148 IVC dilated, CT with constrast shows a small pericardio effusion, may not need er pericardiocentesis and probably repeat Echo and or CT in the future IVF while NPO tele monitoring cardiology consultation shortness of breath denies other respiratory symptoms no fever, trop, BNP negative given pericardial effusion, CTA done, small effusion, no PE h/o asthma no wheezing on exam Overall better today dvt ppx - mechanical devices Patient will likely require 2 midnight stay in the hospital for management of pericardial effusion further database marketing specialist evaluation, workup shortness as well as close cardiac monitoring and monitoring of LFTs. Quality Stroke Does the patient have a stroke diagnosis?: No VTE Prior VTE?: No VTE Risk Level:: Medical - moderate - high VTE Device Contraindication: N/A - Device Ordered VTE Drug Contraindication: N/A - Med Ordered
--- NOTE | 2025-05-23 12:02 | P.CONCA_ITS ---
History of Present Illness History of Present Illness Date of Service: 05/23/25 Requesting physician: Arpit [facility] Consult reason: other (Pericardial effusion) Chief complaint: abdominal pain, pericardial effusion Narrative: I was consulted to see Aruna in cardiology consultation today for pericardial effusion that was incidentally noted on noncardiac imaging. Patient is 61 year female with prior history of obesity and hypertension for which she underwent gastric sleeve surgery last year. Since then she says she has lost about 130 lb and continues to lose weight. She is currently seeing a building wrecker to increase her weight. She came to the hospital with sudden-onset right upper quadrant discomfort. Subsequent findings are suggestive of acute cholecystitis. While doing imaging for the gallbladder she was noticed to have pericardial effusion which then led to echocardiogram. Surprisingly echocardiogram shows very loculated at least moderate size pericardial effusion near the right-sided chambers with some IVC plethora. She did complain of shortness of breath yesterday however today she says she does not have any shortness of breath. She is able to lay flat. She had continues to have mild epigastric discomfort worse with deep breathing. She has no lightheadedness with exertion. Cardiology consult was sought because of pericardial effusion. She was planned to undergo pericardiocentesis today. Although chest CTA was done which shows mild coronary calcification with only small pericardial effusion. There are multiple nodes noted in his lungs. Review of Systems 2 Constitutional: Constitutional: Reports no additional constitutional complaints, Denies chills, Denies fever(s) and Reports weight loss Eyes: Eyes: Reports no additional eye complaints Cardiovascular: Cardiovascular: Denies chest pain, Denies leg edema, Denies lightheadedness, Denies Loss of Consciousness, Denies palpitations and Denies dyspnea Respiratory: Respiratory: Reports no additional respiratory complaints and Denies dyspnea Gastrointestinal: Gastrointestinal: Reports abdominal pain Genitourinary: Genitourinary: Reports no additional female genitourinary complaints Integumentary/Breasts: Skin/Breast: Reports system reviewed and no additional complaints, except as docu Neurologic: Reports system reviewed and no additional complaints, except as documented Psychiatric: Psychiatric: Reports no additional psychiatric complaints Endocrine: Endocrine: Reports no additional endocrine complaints and Denies palpitations PMFSH Past Medical History Medical History Obesity Torticollis Spasmodic torticollis History of tremor IBS (irritable bowel syndrome) Fatty liver Vocal cord dysfunction Unilateral vocal cord paralysis DJD (degenerative joint disease) Arthritis Back pain Seasonal depression Anxiety DJD (degenerative joint disease) Asthma Sleep apnea treated with continuous positive airway pressure (CPAP) Family History Family History Mother Breast CA Father FH: prostate cancer Surgical History Surgical History Hx of hand surgery S/P laparoscopic sleeve gastrectomy History of esophagogastroduodenoscopy (EGD) (02/14/24) Hx of umbilical hernia repair Hx of rotator cuff surgery Hx of colonoscopy Hx of oral surgery Social History Social History Household Members: Children and Other Household Members Other:: sister, son takes care of both Housing: House Are you a primary health care sanitary technician to a significant other at home: Yes (sister w/dementia and son w/ autism-aunt will help post-op) Do you presently have visiting nurse or other home services: No Alcohol intake: never Patient Tobacco Use Status: Never used Tobacco service: No Meds Allergies Allergy/AdvReac Type Severity Reaction Status Date / Time duloxetine (From Cymbalta) AdvReac Intermediate Gastrointestinal Verified 04/23/25 10:50 Upset oxycodone (From Percocet) AdvReac Intermediate Vomiting Verified 04/23/25 10:50 venlafaxine (From Effexor) AdvReac Gastrointestinal Verified 05/22/25 08:53 Upset Active Medications: Current Medications Acetaminophen (Acetaminophen 325 Mg Tablet) 650 mg PO Q6H PRN PRN Reason: Pain, Mild 1-3,fever,headache Albuterol Sulfate (Albuterol Sulfate 90 Mcg 8 Gm Inhaler) 1 puff INHALE QID PRN PRN Reason: Wheezing Calcium Carbonate (Calcium Carbonate 750 Mg Tab.Chew) 750 mg PO Q4H PRN PRN Reason: Heartburn Lactated Ringer's (Lr) 1,000 mls @ 125 mls/hr IVCONT .Q8H [facility] Last Admin: 05/23/25 02:00 Dose: 125 mls/hr Magnesium Hydroxide (Milk Of Magnesia 30 Ml Oral.Susp) 30 ml PO DAILY PRN PRN Reason: Constipation Melatonin (Melatonin 3 Mg Tablet) 6 mg PO BEDTIME PRN PRN Reason: Insomnia Ondansetron HCl (Ondansetron Hcl 4 Mg/2 Ml Vial) 4 mg IVPUSH Q8H PRN PRN Reason: Nausea and Vomiting Sodium Chloride (0.9 % Sodium Chloride Flush 3 Ml Syringe) 3 ml IVFLUSH QSHIFT [facility] Last Admin: 05/23/25 11:50 Dose: Not Given Home Medications ?Medication ?Instructions ?Recorded ?Confirmed ?Last Taken ?Type albuterol sulfate 90 mcg/actuation 1 inh inhalation QI D PRN Wheezing 01/01/24 05/22/25 Unknown History aerosol inhaler (Ventolin HFA) Physical Exam 2 Vital Signs: Vital Signs: Last Vital Signs Temp 98.0 F 05/23/25 11:06 Pulse 67 05/23/25 11:06 Resp 18 05/23/25 11:06 BP 102/68 05/23/25 11:06 Pulse Ox 100 05/23/25 11:06 O2 Del Method Room Air 05/23/25 11:06 BMI result Body Mass Index 18.9 Const: General: cooperative, comfortable, no acute distress, alert and awake Nutritional Appearance: underweight Orientation/consciousness: patient oriented x3 HEENT: Head: Yes normocephalic and Yes atraumatic Neck: Neck: Yes trachea midline, Yes supple and Yes no JVD Resp: Effort & Inspection: normal respiratory effort Auscultation: no rales, no wheezes and diminished lung sounds on the right Cardio: Jugular venous distension: no JVD Rate: regular rate Rhythm: r egular rhythm Heart sounds: S1 normal heart sound present, S2 normal heart sound present, no click, no gallops and no murmurs GI: Auscultation: normal bowel sounds Skin: General skin exam: no rashes or lesions noted Neuro: General: patient oriented x3 and no focal motor deficits Extrem: General: Yes no clubbing, cyanosis or edema Objective Labs and Meds 05/23/25 08:03 05/23/25 08:03 Lab results: Laboratory Results - last 24 hr 05/22/25 05/23/25 09:29 08:03 WBC 3.1 L RBC 4.42 Hgb 12.9 Hct 39.2 MCV 88.7 MCH 29.2 MCHC 32.9 RDW 12.6 Plt Count 140 L MPV 9.8 Absolute Nucleated RBC 0.000 Nucleated RBC % (auto) 0.0 Sodium 145 Potassium 3.8 Chloride 108 Carbon Dioxide 29 Anion Gap 12 BUN 9 Creatinine 0.57 Estim Creat Clear Calc 80.6 Estimated GFR > 60 Random Glucose 85 Calcium 9.5 Total Bilirubin 0.6 Direct Bilirubin 0.2 AST 37 H ALT 50 H Alkaline Phosphatase 45 Troponin I High Sens < 2.7 NT-Pro-B Natriuret Pep 148.0 Total Protein 5.8 L Albumin 4.0 TSH 1.99 Imaging Radiologist's impression: Impressions Abdomen Ultrasound 05/22/25 12:01 IMPRESSION: 1. Gallbladder wall thickening, mild pericholecystic fluid, gallstones, and positive sonographic Rosas's sign. Findings are highly suspicious for acute cholecystitis. 2. Mild hepatic enlargement. Liver otherwise normal. 3. No biliary dilatation. 4. Moderate-sized pericardial effusion. Electronically signed by: Luke Valdivia MD 05/22/2025 12:31 PM EDT Chest CTA 05/23/25 10:24 IMPRESSION: 1. No evidence of pulmonary emboli. 2. Small pericardial effusion. 3. Scattered 3-4 mm bilateral pulmonary nodules as described. Follow-up should be performed based on Fleischner Society guidelines below. Fleischner Criteria for pulmonary nodule follow-up SOLID NODULES: Low risk patient: <6mm: no follow-up 6-8mm: 6 month follow-up CT >8mm: PET/Biopsy/ 3 month follow-up CT High risk patient: <6mm: 12 month follow-up CT 6-8mm: 6 month follow-up CT >8mm: PET/Biopsy/ 3 month follow-up CT SUB-SOLID/GROUNDGLASS NODULES: All patients: > or = 6mm: 6 month follow-up CT *Please note that in patients in the following categories, the Fleischner criteria do not apply: Immunocompromised, lung cancer screening population, age below 35, and patients with known malignancy Electronically signed by: Onur Arellano MD 05/23/2025 10:52 AM EDT RP Assessment and Plan (1) Pericardial effusion: Status: Acute Moderate pericardial effusion which is very luck lead over the right-sided chambers. On CT scan this appears to be small. Not sure if this can be drained for diagnostic and maybe therapeutic purposes by interventional radiology. Hospitalist team will discuss with IR. Clinically she does not have any signs of tamponade. She does not have significant JVD or significant symptoms at rest. If this can not be drain, this can be potentially followed by a limited echocardiogram as out patient. She did not come with symptoms related to pericardial effusion appears more likely related to gallbladder issues which has been evaluated by surgical team. Advised to maintain adequate hydration. Etiology of this pericardial effusion which is very loculated is unclear. She does have not use on her lungs. It is possible that she could have inflammatory pericardial effusion would suggest to draw inflammatory markers however they maybe also elevated due to her underlying gallbladder inflammation. However if they are significantly elevated will consider treatment with anti-inflammatory therapy along with colchicine. Will sign of the case Procedures Date of Service Date of Service: 05/23/25
[2025-05-23 14:19] VITALS: BMI 18.9
[2025-05-23 19:35] VITALS: BP 106/73; PULSE 67; RESP 18; TEMP 36.3; O2SAT 100
[2025-05-23] MEDS: 0.9 % Sodium Chloride Flush 3 ML SYRINGE IVFLUSH (22:17)
[2025-05-23 23:29] VITALS: BP 104/58; PULSE 60; RESP 18; TEMP 36.3; O2SAT 98
[2025-05-24 03:37] VITALS: BP 124/79; PULSE 60; RESP 18; TEMP 36.6; O2SAT 100
[2025-05-24] MEDS: Lactated Ringers 1,000 ML 125 ML IVCONT (05:39)
[2025-05-24 07:22] VITALS: BP 108/62; PULSE 58; RESP 16; TEMP 36.8; O2SAT 96
--- NOTE | 2025-05-24 09:30 | P.PNGS_ITS ---
Subjective Subjective Date of Service: 05/24/25 Interval history: Denies abdominal pain Feels well overall Denies shortness of breath Physical Exam 2 Vital Signs: Vital Signs: Last Vital Signs Temp 98.2 F 05/24/25 07:22 Pulse 58 05/24/25 07:22 Resp 16 05/24/25 07:22 BP 108/62 05/24/25 07:22 Pulse Ox 96 05/24/25 07:22 O2 Del Method Room Air 05/24/25 07:22 BMI result Body Mass Index 18.9 Const: General: comfortable and no acute distress Resp: Effort & Inspection: normal respiratory effort Cardio: Rate: regular rate GI: Palpation (GI): Soft to palpation, not firm, nontender and no guarding Objective Data Active Medications Acetaminophen (Acetaminophen 325 Mg Tablet) 650 mg PO Q6H PRN PRN Reason: Pain, Mild 1-3,fever,headache Albuterol Sulfate (Albuterol Sulfate 90 Mcg 8 Gm Inhaler) 1 puff INHALE QID PRN PRN Reason: Wheezing Calcium Carbonate (Calcium Carbonate 750 Mg Tab.Chew) 750 mg PO Q4H PRN PRN Reason: Heartburn Lactated Ringer's (Lr) 1,000 mls @ 150 mls/hr IVCONT .Q6H40M [facility] Magnesium Hydroxide (Milk Of Magnesia 30 Ml Oral.Susp) 30 ml PO DAILY PRN PRN Reason: Constipation Melatonin (Melatonin 3 Mg Tablet) 6 mg PO BEDTIME PRN PRN Reason: Insomnia Ondansetron HCl (Ondansetron Hcl 4 Mg/2 Ml Vial) 4 mg IVPUSH Q8H PRN PRN Reason: Nausea and Vomiting Sodium Chloride (0.9 % Sodium Chloride Flush 3 Ml Syringe) 3 ml IVFLUSH [facility] Last Admin: 05/24/25 08:17 Dose: Not Given Documented By: RENITA Non-Admin Reason: IV Running Labs 05/23/25 08:03 05/23/25 08:03 Procedures Date of Service Date of Service: 05/24/25 Progress Note: A&P Assessment and plan (1) Abdominal pain: Status: Acute Assessment and Plan: Clinically does not have acute cholecystitis Abdomen is soft and benign Tolerating diet well HIDA scan normal Care as per the hospitalist service Okay for discharge from surgical standpoint I have recommended follow up with weight management clinic Time Spent With Patient Time: Total time managing care of this patient today ____ minutes. Quality Stroke Does the patient have a stroke diagnosis?: No VTE Prior VTE?: No VTE Risk Level:: Medical - moderate - high VTE Device Contraindication: N/A - Device Ordered VTE Drug Contraindication: N/A - Med Ordered
[2025-05-24 11:28] VITALS: BP 113/80; PULSE 71; RESP 18; TEMP 37.1; O2SAT 99
--- NOTE | 2025-05-24 12:07 | P.PNCA_ITS ---
Subjective Subjective Date of Service: 05/24/25 Principal diagnosis: Pericardial effusion abdominal pain Interval history: Patient without hemodynamic compromise. Blood pressure is stable. No lightheadedness or shortness of breath. Workup does not suggest cholecystitis. Underwent CTA yesterday and was felt that the pericardial effusion was too small to be tapped without significant risk. Review of Systems Review of Systems Yes all other systems are reviewed and are negative Physical Exam Vital Signs: Last Vital Signs Temp 98.8 F 05/24/25 11:28 Pulse 71 05/24/25 11:28 Resp 18 05/24/25 11:28 BP 113/80 05/24/25 11:28 Pulse Ox 99 05/24/25 11:28 O2 Del Method Room Air 05/24/25 11:28 BMI result Body Mass Index 18.9 Const General: cooperative, comfortable, no acute distress, alert and awake Nutritional Appearance: underweight Orientation/consciousness: patient oriented x3 HEENT Head: Yes normocephalic and Yes atraumatic Neck Neck: Yes trachea midline, Yes supple and Yes no JVD Resp Effort & Inspection: normal respiratory effort Auscultation: no rales, no wheezes and diminished lung sounds on the right Cardio Jugular venous distension: no JVD Rate: regular rate Rhythm: regular rhythm Heart sounds: S1 normal heart sound present, S2 normal heart sound present, no click, no gallops and no murmurs GI Auscultation: normal bowel sounds Skin General skin exam: no rashes or lesions noted Neuro General: patient oriented x3 and no focal motor deficits Extrem General: Yes no clubbing, cyanosis or edema Objective Labs and Meds 05/23/25 08:03 05/23/25 08:03 Imaging Radiologist's impression: Impressions Hepatobiliary Scan Nuclear Medicine 05/23/25 14:17 IMPRESSION: Normal hepatic uptake. Patent cystic duct. Patent CBD. Normal gallbladder ejection fraction of 72% by 30 minutes Electronically signed by: Francisco Rodriguez MD 05/23/2025 04:32 PM EDT Progress Note: A&P Assessment and plan (1) Pericardial effusion: Status: Acute Assessment and Plan: Loculated pericardial effusion of the right-sided chambers without hemodynamic compromise or any symptoms. [place] to be too less to be tapped safely by interventional radiology. Agree at this point time. Follow-up limited echocardiogram with . Etiology is unclear at this time. If there has increase in pericardial effusion size may need further diagnostic workup. Advised to maintain adequate hydration. Patient can be discharged and will set up for outpatient follow-up Time Spent With Patient Time: Total time managing care of this patient today ____ minutes. Progress Note: Quality Stroke Does the patient have a stroke diagnosis?: No Procedures Date of Service Date of Service: 05/24/25
--- NOTE | 2025-05-24 12:17 | PM.DS ---
DS: Providers Provider Date of Service: 05/24/25 Date of admission: 05/22/25 15:10 Date of discharge: 05/24/25 Primary care physician: JHON Jhaveri Consults: 05/22/25 16:55 Consult to Cardiology Routine Consulting Provider: [facility] Reason for consultation: pericardial effusion Has provider been notified: No DS: Diagnosis Discharge Diagnosis (1) Pericardial effusion: Status: Acute DS: Summary Hospital Course Hospital Course: admission hpi Attending physician on admission: [facility] Chief Complaint: abdominal pain This is a 60-year-old female with history of spasmodic torticollis, laparoscopic sleeve gastrectomy in 2023, asthma who came to the emergency department today due to abdominal pain. Patient states for the past 1 week she is having epigastric abdominal pain which is worse after eating. She has had associated nausea but no vomiting diarrhea or fever. She has never had any similar pain previously. In the emergency department she was noted to have slight elevation in her LFTs. She underwent abdominal ultrasound which showed gallbladder wall thickening, pericholecystic fluid, gallstones and positive Rosas sign, findings highly suspicious for acute cholecystitis. However she was seen in the emergency department by General surgery who did not feel that her physical exam was consistent with acute cholecystitis. In addition her imaging showed concern for moderate size pericardial effusion, she underwent urgent echocardiogram which showed loculated right effusion with no overt signs of tamponade. Patient reports 2 days of dyspnea on exertion, she denies any chest pain, dizziness, palpitations. She denies fever or any recent illness. Hospital course: She presented with abdominal pain and CT finding concerning for acute cholecystitis but there was also evidence fo pericardial effusion on CT and subsequently had echocardiogram showing - 1. Large loculated pericardial effusion over the right-sided chambers without clear signs of tamponade noted with mildly dilated IVC. She subsequently had a CTA of chest which showed relative very small pericardial effusion and give the size of the effusion and being hemodynamically stable and assymptomatic. It was deem unsafe to perform pericardiocentensis at this time. Rather she will have follow up echo or CT to reassess in the near future. As for ? cholecystitis, she was evaluated by surgery, started on Abx, however her symptoms were mild and a HIDA scan clarify no evidence of cholecystitis. She is tolerating her usual diet. Time Attestation Discharge Coordination Time (in mins): 35 Quality: Safe Use of Opioids Does Pt have an Active Cancer Diagnosis on the Problem List?: No Quality: Stroke Does the patient have a stroke diagnosis?: No Physical Exam Vital Signs: Vital Signs: Last Vital Signs Temp 98.8 F 05/24/25 11:28 Pulse 71 05/24/25 11:28 Resp 18 05/24/25 11:28 BP 113/80 05/24/25 11:28 Pulse Ox 99 05/24/25 11:28 O2 Del Method Room Air 05/24/25 11:28 BMI result Body Mass Index 18.9 DS: Data Data Completed and Pending Completed studies during hospitalization [Text1]: Procedures Excision of Stomach, Percutaneous Endoscopic Approach, Vertical (04/10/24) Release Peritoneum, Percutaneous Endoscopic Approach (04/10/24) Pending studies at discharge: Pending at discharge 05/22/25 17:24 Cytology [PTH] Routine Discharge Plan Discharge Anticipated Discharge Date/Time: 05/24/25 12:18 Patient Disposition: Home, Self-Care Discharge Diagnosis: Pericardial effusion, abdominal pain Referrals: Alejandra Hanson PA [Primary Care Provider, Internal Medicine] - 1 Week Discharge Medications: Continued albuterol sulfate [Ventolin HFA] 90 mcg/actuation HFA aerosol inhaler 1 inh inhalation QID PRN (Reason: Wheezing) vitamin A palmitate 3,000 mcg (10,000 unit) capsule 10,000 unit PO DAILY Qty: 90 3RF Diet: Advance to usual diet Activity on Discharge: As tolerated Stand Alone Forms: Patient Portal Discharge page Print Language: Andorran Care Plan Goals: recovery from abdominal pain, concern for cholecystitis, pericardial effusion Health Concerns: Pericardial effusion Abdominal pain Low blood pressure Plan of Treatment: Drink plenty of fluid Follow-up with Dr. Armenta Called 911 if you experience shortness of breath chest pain dizziness Assessment: see
--- NOTE | 2025-05-24 13:12 | MHC.CM.PN ---
PT CLEARED TO DC HOME TODAY WITH NO SERVICES VIA PRIVATE TRANSPORT
== END 2025-05-24 13:34 | disposition home or self-care (01) | DRG 316 ==
LOC: HO.ED 12:40 → HO.EDOVER 15:11 → HO.IMC 19:43
PROVIDERS: Physician Assistant Medical; Admitting Provider Physician Assistant Medical; Emergency Provider Emergency Medicine; PCP Physician Assistant Medical; Visit Provider Internal Medicine
DX: I31.39 Other pericardial effusion (noninflammatory) (principal); R10.9 Unspecified abdominal pain; Z98.84 Bariatric surgery status; Z79.899 Other long term (current) drug therapy
CPT/HCPCS: 36415; 71275; 74177; 76705; 78227; 80048; 80053; 80076; 81001; 82248; 83690; 83880; 84443; 84484; 85025; 85027; 93005; 93306; 99285; A9537; J1644; J2270; J2805; J7120; Q9957; Q9967

== ENCOUNTER → 2025-05-22 09:11 | Outpatient (BNV) | payer MEDICARE, MEDICAID, SELFPAY | PROVIDERS: PCP Physician Assistant Medical; Visit Provider Radiology Diagnostic Radiology | DX: N94.89 Other specified conditions associated with female genital organs and menstrual cycle (principal); K80.20 Calculus of gallbladder without cholecystitis without obstruction; I31.39 Other pericardial effusion (noninflammatory); K82.8 Other specified diseases of gallbladder; R16.0 Hepatomegaly, not elsewhere classified | CPT/HCPCS: 74177; 76705 ==

== ENCOUNTER → 2025-05-22 14:53 | Outpatient (BNV) | payer MEDICARE, MEDICAID, SELFPAY | PROVIDERS: Admitting Provider Physician Assistant Medical; Emergency Provider Emergency Medicine; PCP Physician Assistant Medical; Visit Provider Internal Medicine Cardiovascular Disease | DX: I31.39 Other pericardial effusion (noninflammatory) (principal) | CPT/HCPCS: 93306 ==

== ENCOUNTER 2025-05-22 15:10 | Outpatient (BNV) | payer MEDICARE, MEDICAID, SELFPAY | END 2025-05-23 07:00 | PROVIDERS: Admitting Provider Physician Assistant Medical; Emergency Provider Emergency Medicine; PCP Physician Assistant Medical; Visit Provider Radiology Diagnostic Radiology | DX: R91.1 Solitary pulmonary nodule (principal); I31.39 Other pericardial effusion (noninflammatory); R10.84 Generalized abdominal pain | CPT/HCPCS: 71275; 78227 ==

== ENCOUNTER → 2025-05-22 15:10 | Outpatient (BNV) | payer MEDICARE, MEDICAID, SELFPAY | PROVIDERS: Admitting Provider Physician Assistant Medical; Emergency Provider Emergency Medicine; PCP Physician Assistant Medical; Visit Provider Physician Assistant Surgical | DX: I31.39 Other pericardial effusion (noninflammatory) (principal) | CPT/HCPCS: 99222; 99232 ==

== ENCOUNTER → 2025-05-22 15:10 | Outpatient (BNV) | payer MEDICARE, MEDICAID, SELFPAY | PROVIDERS: Admitting Provider Physician Assistant Medical; Emergency Provider Emergency Medicine; PCP Physician Assistant Medical; Visit Provider Internal Medicine Cardiovascular Disease | DX: I31.39 Other pericardial effusion (noninflammatory) (principal) | CPT/HCPCS: 99222; 99233 ==

== ENCOUNTER → 2025-05-22 15:10 | Outpatient (BNV) | payer MEDICARE, MEDICAID, SELFPAY | PROVIDERS: Admitting Provider Physician Assistant Medical; Emergency Provider Emergency Medicine; PCP Physician Assistant Medical; Visit Provider Physician Assistant Medical | DX: I31.39 Other pericardial effusion (noninflammatory) (principal); K81.0 Acute cholecystitis; R10.9 Unspecified abdominal pain | CPT/HCPCS: 99223; 99232 ==

== ENCOUNTER → 2025-05-30 10:38 | Outpatient (REF) | payer MEDICARE, MEDICAID, SELFPAY ==
--- NOTE | 2025-05-30 10:41 | CA_ITS ---
Transthoracic Echocardiogram Patient (Last, First, Middle): Ruth Stallworth, Gender: F Date of : 1965 Age: 60 Procedure Date: 05/30/2025 Procedure Type: Transthoracic Echocardiogram Location: OP Height: 162.56 cm Weight: 47.17 kg BSA: 1.48 m2 Heart Rate: 69 bpm BP: 113 / 76 mmHg Differential Tester: TONIE Referring MD: Jarrod Armenta MD Symptoms: I31.39 - Other pericardial effusion (noninflammatory) Study Quality: Adequate/limited ordered ECG Rhythm: Sinus Conclusions: - There is a moderate loculated pericardial effusion overlying the right ventricle and right atrium. There are no definitive echocardiographic findings of tamponade physiology. Findings Left Ventricle Normal left ventricular size, thickness, systolic function, and wall motion. Right Ventricle Normal right ventricular cavity size and systolic function. Venous The inferior vena cava is normal in size and collapses greater than 50% with inspiration. Pericardium/Pleural There is a moderate loculated pericardial effusion overlying the right ventricle and right atrium. There are no definitive echocardiographic findings of tamponade physiology. Prior Study Comparison Changes noted compared to prior study dated: 05/22/2025. Moderate pericardial effusion. No tamponade physiology. Measurements 2D Linear Measurements IVSd: 0.65 0.6-0.9/0.6-1.0 cm LVIDd: 4.02 3.9-5.3/4.2-5.9 cm LVIDd Index: 2.72 2.4-3.2/2.2-3.1 cm/m2 LVIDs: 3.07 2.0-3.6 cm LVPWd: 0.55 0.7-1.1 cm LA Diam: 2.70 2.7-3.8/3.0-4.0 cm LAIDs Index: 1.82 1.5-2.3 cm/m2 LV Mass: 80.02 67-162/88-224 g LV Mass Index: 54.07 43-95/49-115 g/m2 2D Systolic Function EF 4C: 64.20 >55% EF 2C: 52.60 >55% EF BiP: 58.90 >55% Mitral Valve MV Pk E: 0.56 E'Lateral: 7.62 E'Medial: 6.09 E/E' Med: 9.20 E/E' Lat: 7.40 Diastolic Function MV Pk E: 0.56 E'Medial: 6.09 E/E' Med: 9.20 E' Laterial: 7.62 E/E' Lat: 7.40 Tricuspid Valve RA Press: 3.00 Updated in Other Vendor System with Status of Final Chauncey Rascon MD electronically signed on 06/01/2025 6:47:15 PM with status of Final
== END ==
LOC: HO.CARD 10:38
PROVIDERS: Visit Provider Internal Medicine Cardiovascular Disease
DX: I31.39 Other pericardial effusion (noninflammatory) (principal); G47.30 Sleep apnea, unspecified
CPT/HCPCS: 93308

== ENCOUNTER → 2025-05-30 10:41 | Outpatient (BNV) | payer MEDICARE, MEDICAID, SELFPAY | PROVIDERS: Visit Provider Internal Medicine Cardiovascular Disease | DX: I31.39 Other pericardial effusion (noninflammatory) (principal) | CPT/HCPCS: 93308 ==

== ENCOUNTER 2025-06-16 13:37 | Emergency (ER) | payer MEDICARE, MEDICAID, SELFPAY ==
--- NOTE | ~2025-06-16 | XR_ITS ---
EXAMINATION: XR CHEST CLINICAL INFORMATION: chest pain COMPARISON: X-ray 01/23/2024 TECHNIQUE: 2 views of the chest were obtained. FINDINGS: The cardiomediastinal silhouette is within normal limits. The lungs are well expanded. There is hazy opacity in the lateral aspect of the right lower lung. No dense consolidation. No edema, or effusion. No pneumothorax. Multilevel degeneration in the visualized spine.. XR/XR chest 2V IMPRESSION: Hazy opacity in the lateral right lower lung,, could reflect atelectasis or infiltrate. Electronically signed by: Pelon Kelsey MD 06/16/2025 02:34 PM EST
--- NOTE | ~2025-06-16 | CT_ITS ---
EXAMINATION: CT CHEST WITHOUT CONTRAST CLINICAL INFORMATION: Normal chest x-ray COMPARISON: Same-day chest x-ray and CT 05/23/2025 TECHNIQUE: Multidetector volumetric CT imaging of the chest was done. Axial MIP volume rendering provided. Sagittal and coronal reformatted images were obtained. This CT examination was performed using dose optimization techniques as appropriate, variously including the following: *Automated exposure control *Adjustment of mA and/or kV according to patient size (this includes techniques or standardized protocols for targeted exams where dose is matched to indication/reason for exam; i.e. extremities or head) *Use of iterative reconstruction technique FINDINGS: LUNGS: Again seen are at least 4 solid pulmonary nodules measuring 3 to 4 mm and a probable intrapulmonary lymph node involving the superior medial left major fissure. Lungs are clear otherwise. MEDIASTINUM: There is fluid or thickening of the anterior and inferior pericardium. No change. CORONARY ARTERY CALCIFICATION: Present PLEURA: There is no pleural effusion. No pleural mass or thickening. AXILLA: No lymphadenopathy. UPPER ABDOMEN: Postsurgical changes related to gastric bypass surgery are present. OSSEOUS STRUCTURES: There is mild dextroscoliosis involving the upper thoracic spine. There are also mild degenerative changes in the midthoracic spine. CT/CT chest wo IV con IMPRESSION: No acute disease. Stable pericardial thickening or effusion within the anterior and the inferior pericardium. Stable solid pulmonary nodules when compared with CT performed approximately one month ago. No further follow-up is indicated per Fleischner Society recommendations, unless the patient falls into a high risk category, in which case a 12 month follow-up CT chest without contrast is optional. High risk patients includes those with a history of smoking, first-degree relative with lung cancer, or exposure to uranium, radon, or asbestos. Mild dextroscoliosis and mild to moderate degenerative changes in the midthoracic spine. Fleischner guidelines were followed. Electronically signed by: Efren Tyler MD 06/16/2025 04:37 PM EST
--- NOTE | 2025-06-16 13:42 | ECG_ITS ---
Test Reason : CHEST PAIN Blood Pressure : */* mmHG Vent. Rate : 66 BPM Atrial Rate : 66 BPM P-R Int : 128 ms QRS Dur : 68 ms QT Int : 394 ms P-R-T Axes : 39 59 48 degrees QTcB Int : 413 ms Normal sinus rhythm Low voltage QRS Borderline ECG When compared with ECG of 22-May-2025 15:21, Nonspecific T wave abnormality no longer evident in Lateral leads Referred By: Generic ED Physician Electronically Signed By: Chauncey Rascon
[2025-06-16 13:43] VITALS: BP 120/82; PULSE 70; O2SAT 100
[2025-06-16 13:49] VITALS: BP 124/64; PULSE 68; RESP 14; TEMP 36.6; O2SAT 99; BMI 19.0
[2025-06-16 14:14] LABS: MANUAL DIFF FLAG NO
[2025-06-16 14:16] LABS: Hematocrit 39.4 % (37.0-47.0); Hemoglobin 12.8 g/dl (12.0-16.0); Imm Gran Abs Auto 0.01 X10*3/uL (0.00-0.03); Imm Gran Pct Auto 0.2 % (0.0-0.4); Lymphocytes Absolute Auto 3.1 X10*3/uL (1.2-4.9); Mean Corpuscular HGB Conc 32.5 g/dl (31.0-35.0); Mean Corpuscular Hemoglobin 29.2 pg (27.0-33.0); Mean Corpuscular Volume 89.7 fL (80.0-98.0); NRBC Abs Auto 0.000 X10*3/uL (0.0-0.012); NRBC Pct Auto 0.0 /100WBC (0.0-0.2); Platelet Count 202 X10*3/uL (160-400); Red Blood Count 4.39 X10*6/uL (4.20-5.50); White Blood Count 6.5 X10*3/uL (4.8-10.8)
--- NOTE | 2025-06-16 14:18 | ED.CHESTPAIN ---
HPI - Chest Pain General Chief Complaint: Chest Pain Stated Complaint: Chest pain/back pain Time Seen by Provider: 06/16/25 14:10 Source: patient and EMS Mode of arrival: EMS Limitations: no limitations History of Present Illness ED Provider: DR. Vicente HPI narrative: a 60-year-old female history of morbid obesity lost 140 lb by sleeve gastrectomy over last year with significant improvement of sleep apnea, asthma, fibromyalgia, presented after having left-sided chest pain while she was driving pain was associated with difficulty breathing, pain lasted for about 20-25 minutes then pain now is 0 out of 10, no fever, no chills, no SOB, no recent travel, no lower extremity swelling or tenderness, no history of DVT or pulmonary embolism, no history PR or ACS. No chest injury or trauma. Related Data Home Medications ?Medication ?Instructions ?Recorded ?Confirmed albuterol sulfate 90 mcg/actuation 1 inh inhalation QID PRN Wheezing 01/01/24 05/22/25 aerosol inhaler (Ventolin HFA) Previous Rx's ?Medication ?Instructions ?Recorded vitamin A palmitate 3,000 mcg 10,000 unit PO DAILY #90 caps 10/21/24 (10,000 unit) capsule Allergies Allergy/AdvReac Type Severity Reaction Status Date / Time duloxetine (From Cymbalta) AdvReac Intermediate Gastrointestinal Verified 06/16/25 13:50 Upset oxycodone (From Percocet) AdvReac Intermediate Vomiting Verified 06/16/25 13:50 venlafaxine (From Effexor) AdvReac Gastrointestinal Verified 06/16/25 13:50 Upset Review of Systems Review of Systems: all other systems are reviewed and are negative Constitutional: Reports as per HPI and Reports no additional constitutional complaints Eyes: Reports as per HPI and Reports no additional eye complaints Reports system reviewed and no additional complaints, except as documented Cardiovascular: Reports as per HPI and Reports no additional cardiovascular complaints Respiratory: Reports as per HPI and Reports no additional respiratory complaints Gastrointestinal: Reports as per HPI and Reports no additional gastrointestinal complaints Genitourinary: Reports no additional female genitourinary complaints Musculoskeletal: Reports no additional musculoskeletal complaints Skin/Breast: Reports system reviewed and no additional complaints, except as docu Psychiatric: Reports no additional psychiatric complaints Endocrine: Reports no additional endocrine complaints Hematologic/Lymphatic: Reports no additional hematologic/lymphatic complaints Allergic/Immunologic: Reports no additional allergic/immunologic complaints Reports system reviewed and no additional complaints, except as documented and Reports Abnormal speech present FOR[facility]LY [facility] Past Medical History Medical History Obesity Torticollis Spasmodic torticollis History of tremor IBS (irritable bowel syndrome) Fatty liver Vocal cord dysfunction Unilateral vocal cord paralysis DJD (degenerative joint disease) Arthritis Back pain Seasonal depression Anxiety DJD (degenerative joint disease) Asthma Sleep apnea treated with continuous positive airway pressure (CPAP) Surgical History Hx of hand surgery S/P laparoscopic sleeve gastrectomy History of esophagogastroduodenoscopy (EGD) (02/14/24) Hx of umbilical hernia repair Hx of rotator cuff surgery Hx of colonoscopy Hx of oral surgery Family History Family History Mother Breast CA Father FH: prostate cancer Social History Social History Household Members: Children and Other Household Members Other:: sister, son takes care of both Housing: House Are you a primary manager medicare marketing to a significant other at home: Yes (sister w/dementia and son w/ autism-aunt will help post-op) Do you presently have visiting nurse or other home services: No Alcohol intake: never Patient Tobacco Use Status: Never used Tobacco Advance Directives: No Advance Directives Information Provided: No service: No Physical Exam Vital Signs: Vital Signs: Last Vital Signs Temp 97.8 F 06/16/25 15:29 Pulse 80 06/16/25 15:29 Resp 14 06/16/25 15:29 BP 103/65 06/16/25 15:29 Pulse Ox 99 06/16/25 15:29 O2 Del Method Room Air 06/16/25 15:29 BMI result Body Mass Index 19.0 Vital signs have been reviewed and appear to be correct. Blood pressure elevated. Heart rate normal. Respiratory rate normal. Temperature normal. Oxygen saturation normal. Appearance: Alert. Oriented X3. No acute distress. Head: Normal external exam. Normocephalic. Atraumatic. No Peña signs noted. No raccoon eyes noted Eyes: PERRLA. EOMI. Conjunctiva and sclera normal. Eyelids normal. ENT: TM's Normal. Pharynx normal. Uvula midline. Moist mucous membranes. No trismus noted. No drooling noted. No muffled voice noted. Neck: Normal inspection. Neck supple. FROM. No adenopathy. Thyroid Normal. No meningeal signs. No neck mass noted. CVS: Normal heart rate and rhythm. Heart sound normal. No murmurs noted. Pulses normal throughout. Respiratory: No respiratory distress. Painless inspiration. Breath sounds normal. No wheezes/rales/rhonchi noted. Chest nontender. No accessory muscle usage noted or decreased air movement noted. Abdomen: Soft and nontender. Bowel sounds normal in all 4 quadrants. No distention noted. No organomegaly noted. No visible injury noted. Back: No CVA tenderness. Full range of motion noted. Skin: Skin warm and dry. Normal skin color. Normal skin turgor. No rashes/lesions/lacerations noted. Extremities: No lower extremity edema. Extremities exhibit normal range of motion. Extremities nontender. Neuro: Oriented X 3. Cranial nerve exam: II-XII are grossly intact No motor deficit. No sensory deficit. Reflexes normal. Course Reevaluation(s) Reevaluation #1: 60-year-old female came in with left-sided chest pain, negative troponin x2, reassuring EKG. No risk for DVT / pulmonary embolism with negative D-dimer. Chest x-ray raised a concern of hazy opacity in the lateral right lower lung could represent infiltrate or atelectasis CT of the chest shows no infiltrate but stable lung nodule that is stable since the last exam. Time: 16:56 Medical Decision Making Differential Diagnosis Differential Diagnoses: The differential diagnosis associated with the presentation includes ( ACS, pulmonary embolism, pleural effusion, pericardial effusion, pneumonia, pneumothorax, electrolyte derangement, chest wall pain, costochondritis, Severe anemia.) Admission/Observation Consideration of admission/observation: Escalation of care including admission/observation considered Lab Data MDM Lab Attestation statement: I reviewed the patient's lab results. 06/16/25 14:09 06/16/25 14:09 Labs: Lab Results 06/16/25 Range/Units 14:09 WBC 6.5 (4.8-10.8) X10*3/uL RBC 4.39 (4.20-5.50) X10*6/uL Hgb 12.8 (12.0-16.0) g/dl Hct 39.4 (37.0-47.0) % MCV 89.7 (80.0-98.0) fL MCH 29.2 (27.0-33.0) pg MCHC 32.5 (31.0-35.0) g/dl RDW 12.6 (11.0-16.0) % Plt Count 202 D (160-400) X10*3/uL MPV 9.7 (9.4-12.3) fL Immature Gran % (Auto) 0.2 (0.0-0.4) % Neut % (Auto) 44.6 L (45-73) % Lymph % (Auto) 47.5 H (20-40) % Collier % (Auto) 6.6 (2-11) % Eos % (Auto) 0.5 (0-4) % Baso % (Auto) 0.6 (0-2) % Lymph # (Auto) 3.1 (1.2-4.9) X10*3/uL Collier # (Auto) 0.4 (0.1-1.2) X10*3/uL Eos # (Auto) 0.0 (0.0-0.4) X10*3/uL Baso # (Auto) 0.0 (0.0-0.2) X10*3/uL Abs Immat Gran (auto) 0.01 (0.00-0.03) X10*3/uL Absolute Neuts (auto) 2.9 (2.0-8.3) x10*3/uL Absolute Nucleated RBC 0.000 (0.0-0.012) X10*3/uL Nucleated RBC % (auto) 0.0 (0.0-0.2) /100WBC PT 12.3 (10.9-12.4) SEC INR 1.1 (0.9-1.1) D-Dimer High Sensitivty < 150 NG/ML Sodium 141 (135-145) mmol/L Potassium 4.1 (3.3-5.1) mmol/L Chloride 107 (96-108) mmol/L Carbon Dioxide 30 H (22-29) mmol/L Anion Gap 8 L (12-20) BUN 23 H (9-16) mg/dL Creatinine 0.65 (0.5-1.4) mg/dL Estim Creat Clear Calc 71.2 Estimated GFR > 60 Random Glucose 90 (60-115) mg/dL Calcium 9.2 (8.4-10.2) mg/dL Total Bilirubin 0.3 (0.0-1.0) mg/dL AST 21 (5-31) U/L ALT 25 (0-31) U/L Alkaline Phosphatase 40 (39-117) U/L Troponin I High Sens < 2.7 (<3.5-17.0) ng/L NT-Pro-B Natriuret Pep 150.9 (<300) pg/mL Total Protein 6.3 L (6.5-8.0) g/dL Albumin 4.2 (3.5-5.0) g/dL Independent Interpretation I performed an independent interpretation of an: Plain X-Ray ( Chest:Hazy opacity in the lateral right lower lung,, could reflect atelectasis or infiltrate. ) Radiology Impression Discussion of test interpretation with radiology: I have reviewed the radiologist's reading. Discharge Plan Discharge Clinical Impression: Chest pain Patient Disposition: Home, Self-Care Prescriptions: No Action albuterol sulfate [Ventolin HFA] 90 mcg/actuation HFA aerosol inhaler 1 inh inhalation QID PRN (Reason: Wheezing) vitamin A palmitate 3,000 mcg (10,000 unit) capsule 10,000 unit PO DAILY Qty: 90 3RF Referrals: Alejandra Hanson PA [Primary Care Provider, Internal Medicine] Print Language: Setswana
[2025-06-16 14:20] LABS: INTERNATIONAL NORM RATIO 1.1 (0.9-1.1); Prothrombin Time 12.3 SEC (10.9-12.4)
[2025-06-16 14:33] LABS: Alanine Aminotransferase 25 U/L (0-31); Albumin Level 4.2 g/dL (3.5-5.0); Alkaline Phosphatase 40 U/L (39-117); Anion Gap 8 (12-20); Aspartate Amino Transferase 21 U/L (5-31); Blood Urea Nitrogen 23 mg/dL (9-16); Calcium 9.2 mg/dL (8.4-10.2); Carbon Dioxide 30 mmol/L (22-29); Chloride 107 mmol/L (96-108); Creatinine Clr Calc Pharmacy 71.2; Estimated Glomerular Filt Rate > 60; Potassium 4.1 mmol/L (3.3-5.1); Sodium 141 mmol/L (135-145); Total Protein 6.3 g/dL (6.5-8.0)
[2025-06-16 14:38] LABS: NT Pro B Type Natriuretic Pept 150.9 pg/mL (<300)
[2025-06-16 14:40] LABS: Troponin-I High Sensitivity < 2.7 ng/L (<3.5-17.0)
[2025-06-16 14:54] LABS: D Dimer High Sensitivity < 150 NG/ML
[2025-06-16 15:29] VITALS: BP 103/65; PULSE 80; RESP 14; TEMP 36.6; O2SAT 99
[2025-06-16 16:33] VITALS: PULSE 68
[2025-06-16 16:57] LABS: Troponin-I High Sensitivity < 2.7 ng/L (<3.5-17.0)
[2025-06-16 17:10] VITALS: BP 103/65; PULSE 80; RESP 14; TEMP 36.6; O2SAT 99
== END 2025-06-16 17:22 | disposition home or self-care (01) ==
PROVIDERS: Physician Assistant Medical; Emergency Provider Emergency Medicine; PCP Physician Assistant Medical
DX: R07.9 Chest pain, unspecified (principal); J45.909 Unspecified asthma, uncomplicated
CPT/HCPCS: 36415; 71046; 71250; 80053; 83880; 84484; 85025; 85379; 85610; 93005; 99284; 99285

== ENCOUNTER → 2025-06-16 13:42 | Outpatient (BNV) | payer MEDICARE, MEDICAID, SELFPAY | PROVIDERS: Emergency Provider Emergency Medicine; PCP Physician Assistant Medical; Visit Provider Internal Medicine Cardiovascular Disease | DX: R07.9 Chest pain, unspecified (principal) | CPT/HCPCS: 93010 ==

== ENCOUNTER → 2025-06-16 13:55 | Outpatient (BNV) | payer MEDICARE, MEDICAID, SELFPAY | PROVIDERS: Emergency Provider Emergency Medicine; PCP Physician Assistant Medical; Visit Provider Radiology Diagnostic Ultrasound | DX: J90 Pleural effusion, not elsewhere classified (principal); R91.8 Other nonspecific abnormal finding of lung field; M47.814 Spondylosis without myelopathy or radiculopathy, thoracic region | CPT/HCPCS: 71250 ==

== ENCOUNTER 2025-07-01 13:49 | Outpatient (AMB) | payer MEDICARE, MEDICAID, SELFPAY ==
--- NOTE | 2025-07-01 13:53 | A.OFFVIS_ITS ---
Vital Signs 07/01/25 13:59 Height 5 ft 4 in Weight 107 lb 8 oz BMI 18.5 BP 108/64 Blood Pressure Location Rt brachial Position Sitting Pulse 65 Pulse Source Pulse Oximeter Pulse Oximetry (%) 94 Oxygen Delivery Method Room Air Intake Visit Reasons: Botox Intake Note: Botox 200 B+B Account Advisor Required: No Accompanied by: Self / Same As Patient Allergies duloxetine (From Cymbalta) Adverse Reaction (Intermediate, Verified 07/01/25 13:55) Gastrointestinal Upset oxycodone (From Percocet) Adverse Reaction (Intermediate, Verified 07/01/25 13:55) Vomiting venlafaxine (From Effexor) Adverse Reaction (Verified 07/01/25 13:55) Gastrointestinal Upset Medication List - Last Reconciled 07/01/25 by Sabi Daugherty MD albuterol sulfate 90 mcg/actuation (Ventolin HFA) 1 inh inhalation QID PRN onabotulinumtoxinA (Botox) 200 units IM ONCE PRN vitamin A palmitate 10,000 units PO DAILY HPI Comments Details: 60y/o female comes for treatment of her cervical dystonia ? Side effects including spread of toxin effect, dysphagia, breathing difficulties , bronchitis etc was discussed in detail and the patient agreed to the procedure.An informed consent was obtained ??? Botulinum toxin type A 200units X 1 -was diluted with 2 cc of normal saline at a concentration of 25 units in 0.5cc saline. Lot number [id number] expiration 10/2027 ??? Muscles injected ??? stevie Splenius - 50 units each ??? Right levator 25 units each Left levator 50 units ? Total used 175 units [facility] Medical History Obesity Torticollis Spasmodic torticollis History of tremor IBS (irritable bowel syndrome) Fatty liver Vocal cord dysfunction Unilateral vocal cord paralysis DJD (degenerative joint disease) Arthritis Back pain Seasonal depression Anxiety DJD (degenerative joint disease) Asthma Sleep apnea treated with continuous positive airway pressure (CPAP) Surgical History Hx of hand surgery S/P laparoscopic sleeve gastrectomy History of esophagogastroduodenoscopy (EGD) (02/14/24) Hx of umbilical hernia repair Hx of rotator cuff surgery Hx of colonoscopy Hx of oral surgery Family History Mother Breast CA Father FH: prostate cancer Social History Household Members: Children and Other Household Members Other:: sister, son takes care of both Housing: House Are you a primary respiratory care program director to a significant other at home: Yes (sister w/dementia and son w/ autism-aunt will help post-op) Do you presently have visiting nurse or other home services: No Alcohol intake: never Patient Tobacco Use Status: Never used Tobacco service: No Physical Exam Vital Signs: Last Vital Signs Pulse 65 07/01/25 13:59 BP 108/64 07/01/25 13:59 Pulse Ox 94 07/01/25 13:59 Oxygen Delivery Method Room Air 07/01/25 13:59 BMI result Body Mass Index 18.5 Const General: cooperative, healthy appearing and comfortable Nutritional Appearance: average body habitus Orientation/consciousness: patient oriented x3 Eyes Pupils: Equal, round and reactive pupils present Neuro Other: no no head tremors Voice tremors retrocollis , right torticollis resticted range of motion neck Stevie scalene levator tightness Mallampatti grade 3 General: patient oriented x3, moves all extremities and no focal motor deficits Cranial nerves: Yes Facial sensation intact/muscles of mastication intact, Yes Equal, round and reactive pupils present, Yes Bilaterally intact EOM present, Yes Nystagmus not present, Yes Normal facial strength present, Yes Midline tongue present and Yes Symmetric palate elevation present Cognition (Neuro): normal cognition Coordination: [id number] test normal Office Procedures Botulinum toxin Injection 58749 - Dystonia Procedure code (CPT) selection complete Office Meds onabotulinumtoxinA 200 unit solution for injection Performing Provider: Sabi Daugherty MD Performing Location: [facility] [place] [facility] Administered by: Sabi Daugherty MD on 07/01/25 14:44 Dose Route Admin Location Dispensed Lot Number Expiration Date [facility] Parts Designer 175 unit IM 200 units [id number] ALLERGAN /BOTOX Total Dispensed Waste 200 units 12.5 % Comments: see HPI Assessment & Plan Assessment & Plan (1) Spasmodic torticollis: Code(s): G24.3 - Spasmodic torticollis Category: Medical Plan Patient tolerated the procedure well she will call with any side effects Orders: Orders AMB Botulinum toxin Injection Today G24.3 - Spasmodic torticollis Coding Level of Care Code Est Pt Level 1 (00144) Diagnoses Spasmodic torticollis G24.3 CPT Codes Botox Injection - Botox 4: 15526 - Dystonia ([id number])
[2025-07-01 13:59] VITALS: BP 108/64; PULSE 65; O2SAT 94; BMI 18.5
== END 2025-07-01 14:46 | disposition home or self-care (01) ==
LOC: HO.HSMS 13:50
PROVIDERS: PCP Physician Assistant Medical; Visit Provider Psychiatry & Neurology Neurology
DX: G24.3 Spasmodic torticollis (principal)
CPT/HCPCS: 64616

== ENCOUNTER → 2025-07-01 13:49 | Outpatient (BNVA) | payer MEDICARE, MEDICAID, SELFPAY | PROVIDERS: PCP Physician Assistant Medical; Visit Provider Psychiatry & Neurology Neurology | DX: G24.3 Spasmodic torticollis (principal) | CPT/HCPCS: 64616; 99211; J0585 ==

== ENCOUNTER 2025-07-14 08:12 | Outpatient (AMB) | payer MEDICARE, MEDICAID, SELFPAY ==
--- NOTE | 2025-07-13 18:15 | A.OFFVIS_ITS ---
VS Expanded 07/13/25 18:16 Height 5 ft 4 in Weight 101 lb 4 oz BMI 17.4 Body Fat % 19.2 Fat Free Mass 82 Visceral Fat Rating 1 Body Water % 55.5 Basal Metabolic Rate/Score 1,183 Intake Visit Reasons: TV Pre Op LSG 07/17/25 Allergies duloxetine (From Cymbalta) Adverse Reaction (Intermediate, Verified 07/13/25 18:16) Gastrointestinal Upset oxycodone (From Percocet) Adverse Reaction (Intermediate, Verified 07/13/25 18:16) Vomiting venlafaxine (From Effexor) Adverse Reaction (Verified 07/13/25 18:16) Gastrointestinal Upset Medication List - Last Reconciled 07/13/25 by Mike Farfan MD albuterol sulfate 90 mcg/actuation (Ventolin HFA) 1 inh inhalation QID PRN onabotulinumtoxinA (Botox) 200 units IM ONCE PRN ondansetron 4 mg PO Q12H vitamin A palmitate 10,000 units PO DAILY HPI HPI TV Pre Op LSG 07/17/25: Details: Start time: 10.30am, End time: 11am ?I spent 25 minutes speaking with the patient on the phone plus an additional 5 minutes reviewing and updating records for a total of 30 minutes HPI Comments Details: Overall weight loss: 116.6lbs or 53.5% TBWL The patient was found to have on abdominal US cholelithiasis, not present previously. It appears to be symptomatic. PFSH Medical History (Updated 07/13/25 @ 18:20 by Mike Farfan MD) Cholelithiasis Obesity Torticollis Spasmodic torticollis History of tremor IBS (irritable bowel syndrome) Fatty liver Vocal cord dysfunction Unilateral vocal cord paralysis DJD (degenerative joint disease) Arthritis Back pain Seasonal depression Anxiety DJD (degenerative joint disease) Asthma Sleep apnea treated with continuous positive airway pressure (CPAP) Surgical History Hx of hand surgery S/P laparoscopic sleeve gastrectomy History of esophagogastroduodenoscopy (EGD) (02/14/24) Hx of umbilical hernia repair Hx of rotator cuff surgery Hx of colonoscopy Hx of oral surgery Family History Mother Breast CA Father FH: prostate cancer Social History Household Members: Children and Other Household Members Other:: sister, son takes care of both Housing: House Are you a primary direct care professional to a significant other at home: Yes (sister w/dementia and son w/ autism-aunt will help post-op) Do you presently have visiting nurse or other home services: No Alcohol intake: never Patient Tobacco Use Status: Never used Tobacco service: No Physical Exam Vital Signs: BMI result Body Mass Index 17.4 Telehealth Telehealth Telehealth Platform: Telephone Location of provider rendering services: practice address Location of patient: address on file Patient Identification confirmed using: Name, : Yes Telehealth method: voice only Patient verbally consented to treatment: Yes Patient verbally consented to billing insurance company: Yes Patient informed of any privacy concerns related to visit: Yes Minutes spent on Phone/Video with Pt.: 30 Assessment & Plan Assessment & Plan (1) Cholelithiasis: Code(s): K80.20 - Calculus of gallbladder without cholecystitis without obstruction Category: Medical Qualifiers: Biliary obstruction: without biliary obstruction Cholecystitis acuity: acute Cholecystitis presence: with cholecystitis Cholelithiasis location: gallbladder Qualified Code(s): K80.00 - Calculus of gallbladder with acute cholecystitis without obstruction Plan: 1. The patient was not aware of having a cholelithiasis. We also discussed that bariatric surgery may accelerate the onset of symptoms of cholelithiasis and that is why elective cholecystectomy in indicated and recommended. We discussed in detail the potential complications and their management including bleeding, bile leak, pancreatitis and major bile duct injury. 2. Continue all your vitamins and medications 3. Avoid aspirin, Motrin, aleve, Naproxyn, Advil, etc 4. Please flower buncher or picker the prescription I sent to your pharmacy. 5. Please do the preoperative blood work 6. Continue liquid diet with 4 Celebrate shakes with one scoop and one more with 2 scoops, all in 8oz almond milk each.
[2025-07-13 18:16] VITALS: BMI 17.4
== END 2025-07-14 10:56 | disposition home or self-care (01) ==
LOC: HO.HBS 08:12
PROVIDERS: PCP Physician Assistant Medical; Visit Provider Surgery
DX: K80.00 Calculus of gallbladder with acute cholecystitis without obstruction (principal); R10.11 Right upper quadrant pain
CPT/HCPCS: 99024

== ENCOUNTER → 2025-07-15 07:34 | Outpatient (REF) | payer MEDICARE, MEDICAID, SELFPAY ==
--- OUTSIDE RECORDS SUMMARY | 2025-07-14 23:59 | XMS_ITS | Continuity of Care Document ---
Author Organization [facility] Address [address] [place] [address]- Care Team Providers Care Waistband Setter Name Role Phone Alejandra Sandoval Primary Care Physician Encounter [facility] Date(s): 06/14/25 - 07/14/25 [facility] [address] [place] [address]- Encounter Type: Triage Allergies, Adverse Reactions, Alerts Substance Criticality Severity Reaction Reaction Severity Status Effexor C/O - vomiting Activ e Cymbalta C/O - vomiting Activ e Percocet 5/325 C/O - vomiting Active Immunizations Given and Recorded Vaccine Date Status Refusal Reason pneumococcal 20-valent conjugate vaccine 1 12/12/23 Given SARS-CoV-2 (COVID-19) mRNA BNT-162b2 vac 07/04/21 Recorded SARS-CoV-2 (COVID-19) mRNA BNT-162b2 vac 12/27/20 Recorded SARS-CoV-2 (COVID-19) mRNA BNT-162b2 vac 12/05/20 Recorded tetanus/diphtheria/pertussis, acel(Tdap) 02/09/16 Given 1Result Comment: [facility] [id number] Medications AutoCPAP 12-18 AutoCPAP 12-18, See Instructions, # 1 each, Refills 0, Tot. Refills 0, Maintenance, use overnight and naps from [employer], 04/04/24 2:28:00 PM EDT, Compound Start Date: 04/04/24 Status: Ordered Medication Dispense Status: Completed Quantity: 1.0 Unit: each Total Allowed Fills: 1 Fills Dispensed: 0 Azithromycin 5 Day Dose Pack 250 mg oral tablet 1 pack/packet, By Mouth, Once, # 6 tablet, 0 Refills, Soft Stop, 09/03/24 9:21:00 AM EST, Tablet, [facility]/pharmacy #[id number], Partial fill upon patient request if the prescription is for a schedule II opioid drug., 162.56, cm, 09/03/24 9:05:00 EST, Height, 77.6, kg, 06/21/24 12:07:00 EST, Dry Weight Start Date: 09/03/24 Status: Ordered Medication Dispense Status: Completed Quantity: 6.0 Unit: tablet Total Allowed Fills: 1 Fills Dispensed: 0 Indications: Cough, unspecified; Flovent HFA 220 mcg/inh inhalation aerosol 2 puffs, Inhalation, 2 times a day, # 12 Gm, 3 Refills, Maintenance, 06/14/24 8:17:00 AM EDT, [facility]/pharmacy #[id number], 162.56, cm, 06/14/24 8:04:00 EDT, Height, 106.59, kg, 12/04/23 8:51:00 EDT, Dry Weight Start Date: 06/14/24 Status: Ordered Medication Dispense Status: Completed Quantity: 12.0 Unit: g Total Allowed Fills: 4 Fills Dispensed: 0 Tylenol 325 mg oral capsule 2 capsule = 650 mg, By Mouth, Every 6 hours, PRN as needed for fever, # 40 capsule, 0 Refills, Maintenance, 06/21/24 2:07:00 PM EST, Capsule, [facility], Partial fill upon patient request if the prescription is for a schedule II opioid drug., 162.56, cm, 06/14/24 8:04:00 EDT, Height, 77.6, kg, 06/21/24 12:07:00 EST, Dry Weight Start Date: 06/21/24 Status: Ordered Medication Dispense Status: Completed Quantity: 40.0 Unit: capsule Total Allowed Fills: 1 Fills Dispensed: 0 Ventolin HFA 108 mcg/inh inhalation aerosol with adapter 1 puffs, Inhalation, 4 times a day, PRN NEEDED FOR WHEEZING, # 18 each, 1 Refills, Maintenance, 06/14/25 10:39:00 PM EDT, [id number], 162.56, cm, 06/02/25 12:58:00 EDT, Height, 49.5, kg, 06/02/25 12:58:00 EDT, Dry Weight Start Date: 06/14/25 Status: Ordered Medication Dispense Status: Completed Quantity: 18.0 Unit: each Total Allowed Fills: 1 Fills Dispensed: 0 Vitamin A By Mouth, Daily, 0 Refills, Maintenance, 02/04/25 9:54:00 AM EDT, Partial fill upon patient request if the prescription is for a schedule II opioid drug. Start Date: 02/04/25 Status: Ordered Medication Dispense Status: Completed Total Allowed Fills: 1 Fills Dispensed: 0 Problem List Condition Confirmation Course Effective Dates Status H ealth Status Informant Asthma Confirmed Active Fibromyalgia syndrome Confirmed Active HH (hiatus hernia) Confirmed Active S/P gastric bypass Confirmed Active KELLY exposure in utero Confirmed Active Hyperlipidemia Confirmed Active Inguinal hernia-right 1 Confirmed Active Major depression Confirmed Active Pulmonary nodules Confirmed Active FATMATA (obstructive sleep apnea) Confirmed Active Hepatic steatosis Confirmed Active Torticollis Confirmed Active Underweight Confirmed Active Fibroid uterus Confirmed Active Vitamin D deficiency Confirmed Active Vocal cord paralysis 2 Confirmed Active 1CT abdomen 2by patient history Social History Social History Type Response Smoking Status Never smoker; Tobacc o user in household: No entered on: 03/16/18 Sexual Orientation Self described orien tation: ; Straight or heterosexual Sex Female Sex Representation Female (finding) Patient Care team information Care Team Personnel Name: Alejandra Sandoval Position: [facility] PCO Associate Professional Member Role: PCP Address: [address] [place] [address] Telecom: Name: Meredith Kimball Position: [facility] Outreach Member Role: Lifetime Consulting Physician Care Team Related Persons Name: DAISHA VAZQUEZ Insurance Providers Guarantor name: SUKUMAR LOCKE [employer] [facility] Information #: 1 Payer: MEDICARE B Payer Identifier: NA Member Number: [id number] Group Number: NA Subscriber Identifier: NA Relationship to Subscriber: self Coverage Type: NA Coverage Verification Date: NA Telecom: NA Address: Health Plan Information #: 2 Payer: [employer] Payer Identifier: NA Member Number: [id number] Group Number: NA Subscriber Identifier: NA Relationship to Subscriber: self Coverage Type: MEDICAID Coverage Verification Date: NA Telecom: NA Address: NA
--- NOTE | 2025-07-15 07:40 | CA_ITS ---
Transthoracic Echocardiogram Patient (Last, First, Middle): Ruth Stallworth, Gender: F Date of : 1965 Age: 60 Procedure Date: 07/15/2025 Procedure Type: Transthoracic Echocardiogram Location: OP Height: 162.56 cm Weight: 44.45 kg BSA: 1.44 m2 Heart Rate: bpm BP: 116 / 60 mmHg Registration Scheduling Specialist: Referring MD: Jarrod Armenta MD Symptoms: I31.39 - Other pericardial effusion (noninflammatory) Study Quality: Good ECG Rhythm: Sinus Conclusions: - The left ventricular systolic function is normal. The visually estimated ejection fraction is between 60-65%. - There is a moderate loculated pericardial effusion overlying the right ventricle. Findings Left Ventricle Normal left ventricular cavity size. There is normal left ventricular wall thickness. The left ventricular systolic function is normal. The visually estimated ejection fraction is between 60-65%. There is no evidence of regional wall motion abnormalities. Venous The inferior vena cava is normal in size and collapses greater than 50% with inspiration. Pericardium/Pleural There is a moderate loculated pericardial effusion overlying the right ventricle. There are no definitive echocardiographic findings of tamponade physiology. Prior Study Comparison No significant change compared to prior study dated: 05/30/2025. Measurements 2D Linear Measurements IVSd: 0.71 0.6-0.9/0.6-1.0 cm LVIDd: 3.73 3.9-5.3/4.2-5.9 cm LVIDd Index: 2.59 2.4-3.2/2.2-3.1 cm/m2 LVIDs: 2.32 2.0-3.6 cm LVPWd: 0.83 0.7-1.1 cm LV Mass: 98.07 67-162/88-224 g LV Mass Index: 68.11 43-95/49-115 g/m2 LVOT Diam: 2.10 3.0+(-)1.3 cm 2D Systolic Function EF 4C: 65.60 >55% EF 2C: 53.70 >55% EF BiP: 58.80 >55% LVOT LVOT Pk [place]: 0.86 LVOT Mn [place]: 0.57 LVOT VTI: 0.20 LVOT Pk Grad: 3.00 LVOT Mn Grad: 2.00 LVOT Diam: 2.10 LVOT Area: 3.46 Updated in Other Vendor System with Status of Final Tico Moscoso MD electronically signed on 07/15/2025 3:34:43 PM with status of Final
[2025-07-15 08:41] LABS: MANUAL DIFF FLAG NO
[2025-07-15 09:04] LABS: Hematocrit 46.3 % (37.0-47.0); Hemoglobin 15.8 g/dl (12.0-16.0); Imm Gran Abs Auto 0.01 X10*3/uL (0.00-0.03); Imm Gran Pct Auto 0.2 % (0.0-0.4); Lymphocytes Absolute Auto 2.1 X10*3/uL (1.2-4.9); Mean Corpuscular HGB Conc 34.1 g/dl (31.0-35.0); Mean Corpuscular Hemoglobin 29.4 pg (27.0-33.0); Mean Corpuscular Volume 86.2 fL (80.0-98.0); NRBC Abs Auto 0.000 X10*3/uL (0.0-0.012); NRBC Pct Auto 0.0 /100WBC (0.0-0.2); Platelet Count 206 X10*3/uL (160-400); Red Blood Count 5.37 X10*6/uL (4.20-5.50); White Blood Count 4.4 X10*3/uL (4.8-10.8)
[2025-07-15 09:09] LABS: INTERNATIONAL NORM RATIO 1.0 (0.9-1.1); Prothrombin Time 12.7 SEC (11.2-13.5)
[2025-07-15 09:38] LABS: Alanine Aminotransferase 54 U/L (0-31); Albumin Level 5.1 g/dL (3.5-5.0); Alkaline Phosphatase 47 U/L (39-117); Anion Gap 14 (12-20); Aspartate Amino Transferase 25 U/L (5-31); Blood Urea Nitrogen 32 mg/dL (9-16); Calcium 10.5 mg/dL (8.4-10.2); Carbon Dioxide 28 mmol/L (22-29); Chloride 103 mmol/L (96-108); Estimated Glomerular Filt Rate > 60; Potassium 4.0 mmol/L (3.3-5.1); Sodium 141 mmol/L (135-145); Total Protein 7.7 g/dL (6.5-8.0)
== END ==
LOC: HO.CARD 07:34
PROVIDERS: Physician Assistant Surgical; PCP Physician Assistant Medical; Visit Provider Internal Medicine Cardiovascular Disease
DX: I31.39 Other pericardial effusion (noninflammatory) (principal); Z01.818 Encounter for other preprocedural examination; Z51.81 Encounter for therapeutic drug level monitoring
CPT/HCPCS: 36415; 80053; 85025; 85610; 85611; 85732; 93308

== ENCOUNTER → 2025-07-15 07:40 | Outpatient (BNV) | payer MEDICARE, MEDICAID, SELFPAY | PROVIDERS: PCP Physician Assistant Medical; Visit Provider Internal Medicine | DX: I31.39 Other pericardial effusion (noninflammatory) (principal) | CPT/HCPCS: 93308 ==

== ENCOUNTER 2025-07-17 10:51 | Day surgery (SDC) | payer MEDICARE, MEDICAID, SELFPAY ==
--- NOTE | 2025-07-14 12:49 | P.CONAN_ITS ---
Documented by User: Gi Alvares NP 07/16/25 09:13 HPI - Anesthesia Eval Consult details Narrative: 60yo F for Cholecystectomy Laparoscopic s/p gastric sleeve 2023 with GA-ETT 6.5 (easy with video laryngoscope) Follows [facility] Neuro for cervical dystonia. Botox injections, last 01/2024 Accidental Left Vocal cord paralysis s/p ?myofascial trigger point injection Pericardial effusion, moderate, R sided: Noted on ECHO during [facility] [place] for chest pain. Cardiology consulted. Effusion unable to be drained (too small). Rec'd repeat ECHO after 4 weeks, but pt has not booked. (Also noted on RUQ US at [facility] ER 07/08/25) Has outpatient appointment with [facility] Cardiology booked for 07/29/25. Workload sent to Dr Armenta for periop considerations. Bariatric team notified of pending cardiac rec's 07/15/25: Repeat echo without change. 07/16/25: Reviewed with LM. OK to proceed. [facility] Active Problems Active Problems: All Active Problems Cholelithiasis (Acute) Pericardial effusion (Acute) Spasmodic torticollis (Acute) Excess skin (Acute) Overweight (Acute) Congenital intra-abdominal adhesions (Acute) S/P laparoscopic sleeve gastrectomy (Acute) BMI 35.0-35.9,adult (Acute) Vitamin B12 deficiency (Acute) Vitamin A deficiency (Acute) BMI 38.0-38.9,adult (Acute) Anxiety (Acute) DJD (degenerative joint disease) (Acute) Asthma (Acute) Sleep apnea treated with continuous positive airway pressure (CPAP) (Acute) Past Medical History Medical History Cholelithiasis Obesity Torticollis Spasmodic torticollis History of tremor IBS (irritable bowel syndrome) Fatty liver Vocal cord dysfunction Unilateral vocal cord paralysis DJD (degenerative joint disease) Arthritis Back pain Seasonal depression Anxiety DJD (degenerative joint disease) Asthma Sleep apnea treated with continuous positive airway pressure (CPAP) Family History Family History Mother Breast CA Father FH: prostate cancer Family history of problems with anesthesia: No Surgical History Surgical History Hx of hand surgery S/P laparoscopic sleeve gastrectomy History of esophagogastroduodenoscopy (EGD) (02/14/24) Hx of umbilical hernia repair Hx of rotator cuff surgery Hx of colonoscopy Hx of oral surgery History of Problems with Anesthesia: No Social History Social History Household Members: Children and Other Household Members Other:: sister, son takes care of both Housing: House Are you a primary care assistant to a significant other at home: Yes (sister w/dementia and son w/ autism-aunt will help post-op) Do you presently have visiting nurse or other home services: No Alcohol intake: never Patient Tobacco Use Status: Never used Tobacco Use of substances other than those prescribed or required for medical reasons: No Are you DNR?: No Advance Directives: No Advance Directives Information Provided: Yes Patient : No service: No Meds Allergies Allergy/AdvReac Type Severity Reaction Status Date / Time duloxetine (From Cymbalta) AdvReac Intermediate Gastrointestinal Verified 07/13/25 18:16 Upset oxycodone (From Percocet) AdvReac Intermediate Vomiting Verified 07/13/25 18:16 venlafaxine (From Effexor) AdvReac Gastrointestinal Verified 07/13/25 18:16 Upset Home Medications ?Medication ?Instructions ?Recorded ?Confirmed ?Last Taken ?Type albuterol sulfate 90 mcg/actuation 1 inh inhalation QI D PRN Wheezing 01/01/24 07/17/25 Unknown History aerosol inhaler (Ventolin HFA) onabotulinumtoxinA 200 unit 200 unit IM ONCE 07/01/25 07/17/25 Unknown History solution for injection (Botox) Exam Pertinent Lab Results Pertinent Lab Results: Lab Results 07/15/25 Range/Units 08:22 Blood Type A Negative Antibody Screen NEGATIVE Laboratory Tests 07/15/25 08:39 WBC 4.4 L Hgb 15.8 D Hct 46.3 Plt Count 206 Sodium 141 Potassium 4.0 Chloride 103 Carbon Dioxide 28 BUN 32 H Creatinine 0.66 Narrative Narrative: EKG 06/2025 Vent. Rate : 66 BPM Atrial Rate : 66 BPM P-R Int : 128 ms QRS Dur : 68 ms QT Int : 394 ms P-R-T Axes : 39 59 48 degrees QTcB Int : 413 ms Normal sinus rhythm Low voltage QRS Borderline ECG When compared with ECG of 22-May-2025 15:21, Nonspecific T wave abnormality no longer evident in Lateral leads ECHO 07/2025 Conclusions: - The left ventricular systolic function is normal. The visually estimated ejection fraction is between 60-65%. - There is a moderate loculated pericardial effusion overlying the right ventricle. Prior Study Comparison No significant change compared to prior study dated: 05/30/2025. Assessment and Plan Assessment Anesthesia Assessment: Chart Reviewed Final Anesthetic Review Family History of Problems with Anesthesia: No History of Problems with Anesthesia: No Documented by User: Nida Ventura MD 07/17/25 13:35 PMFSH Past Medical History Medical History Cholelithiasis Obesity Torticollis Spasmodic torticollis History of tremor IBS (irritable bowel syndrome) Fatty liver Vocal cord dysfunction Unilateral vocal cord paralysis DJD (degenerative joint disease) Arthritis Back pain Seasonal depression Anxiety DJD (degenerative joint disease) Asthma Sleep apnea treated with continuous positive airway pressure (CPAP) Family History Family History Mother Breast CA Father FH: prostate cancer Surgical History Surgical History Hx of hand surgery S/P laparoscopic sleeve gastrectomy History of esophagogastroduodenoscopy (EGD) (02/14/24) Hx of umbilical hernia repair Hx of rotator cuff surgery Hx of colonoscopy Hx of oral surgery Social History Social History Household Members: Children and Other Household Members Other:: sister, son takes care of both Housing: House Are you a primary care assistant to a significant other at home: Yes (sister w/dementia and son w/ autism-aunt will help post-op) Do you presently have visiting nurse or other home services: No Alcohol intake: never Patient Tobacco Use Status: Never used Tobacco Use of substances other than those prescribed or required for medical reasons: No Are you DNR?: No Advance Directives: No Advance Directives Information Provided: Yes Patient : No service: No Meds Allergies Allergy/AdvReac Type Severity Reaction Status Date / Time duloxetine (From Cymbalta) AdvReac Intermediate Gastrointestinal Verified 07/13/25 18:16 Upset oxycodone (From Percocet) AdvReac Intermediate Vomiting Verified 07/13/25 18:16 venlafaxine (From Effexor) AdvReac Gastrointestinal Verified 07/13/25 18:16 Upset Home Medications ?Medication ?Instructions ?Recorded ?Confirmed ?Last Taken ?Type albuterol sulfate 90 mcg/actuation 1 inh inhalation QI D PRN Wheezing 01/01/24 07/17/25 Unknown History aerosol inhaler (Ventolin HFA) onabotulinumtoxinA 200 unit 200 unit IM ONCE 07/01/25 07/17/25 Unknown History solution for injection (Botox) Exam Airway Mallampati Class: II TM Dist: >3cm Neck ROM: Full Heart: rrr Lungs: cta Assessment and Plan Assessment Anesthesia Assessment: Anesthesia Plan Discussed Final Anesthetic Review NPO: Yes ASA Class: III Final Preanesthetic Review: No Changes in Pt Med Stat, Meds/Allgs Chart Reviewed, Consent Obtained/Reviewed and Anes Risks/Benef Reviewed Patient Risk: Intermediate Procedure Risk: Intermediate Anesthetic Plan Anesthetic Plan: GA and Agree w/ Assess. and Plan Disposition: Standard PACU
[2025-07-17] VITALS (8 sets, daily range): BP systolic 107–130; BP diastolic 70–81; PULSE 69–78; RESP 10–16; TEMP 36.6–37.2; O2SAT 96–100; BMI 17.4
[2025-07-17] MEDS: Lactated Ringers 1,000 ML 100 ML IVCONT (11:45)
[2025-07-17] MEDS: Aprepitant 32 MG/4.4 ML VIAL IVPUSH (11:50)
--- NOTE | 2025-07-17 13:45 | P.HPSUR_ITS ---
Pre-Procedural Eval Section A - 24 Hr Update-Section A only Date of Service: 07/17/25 The patient is an INPATIENT: No The patient has been examined within 24 hours of the surgical procedure. The History & Physical has been completed within 30 days and I have reviewed it.: Yes Section B - Complete if H&P > 30 days Chief Complaint: Calculus of gallbladder without cholecystitis Relevant Family History (Specify if Yes): No Relevant Social History: None Present Medications: None Medical History: No relevant PMH History of Previous Operations: Relevant previous surgery/procedure and date(s) (s/p sleeve gastrectomy) Allergies: Allergies Allergy/AdvReac Type Severity Reaction Status Date / Time duloxetine (From Cymbalta) AdvReac Intermediate Gastrointestinal Verified 07/13/25 18:16 Upset oxycodone (From Percocet) AdvReac Intermediate Vomiting Verified 07/13/25 18:16 venlafaxine (From Effexor) AdvReac Gastrointestinal Verified 07/13/25 18:16 Upset Review of Systems Sugical H&P ROS: Negative: Constitution, Cardiovascular, Respiratory, Neurological, Psychiatric, Hem-Onc, Allergic/Immunologic, Gastrointestinal, Genitourinary, Musculoskeletal, Integumentary, Endocrine and Eyes/Ears/Nose/Thr oat Exam Surgical H&P Exam: Normal: HEENT, Normal: Heart, Normal: Lungs, Normal: Extremities, Normal: Abdomen, Normal: Skin and Normal: Neurological Plan Diagnosis/Plan: Unchanged I have reviewed the history and physical and performed a pertinent physical examination on my patient. No changes have occurred unless specified. Time Spent With Patient Time: Total time managing care of this patient today ____ minutes.
--- NOTE | 2025-07-17 13:46 | PM.OP ---
Brief Operative Note Date of Service: 07/17/25 Pre-op diagnosis: Symptomatic cholelithiasis Post-op diagnosis: same Procedure: PROCEDURE DATE: 07/17/2025 PREOPERATIVE DIAGNOSIS: Symptomatic cholelithiasis, mid epigastric and right upper quadrant abdominal pain POSTOPERATIVE DIAGNOSIS: Same as above. PROCEDURE: Laparoscopic cholecystectomy Surgeon: Hermes Farfan M.D.. Ph.D. Student Success Advisor:Alejandra Carranza PA-C Anesthesia: General endotracheal anesthesia Estimated blood loss: Minimal FINDINGS AND PROCEDURE: OPERATIVE INDICATIONS: The patient is a 60year old female known to me who underwent a laparoscopic sleeve gastrectomy. The patient had remarkable weight loss so far and had a completely uneventful recovery. The patient was doing very well but has recently been complaining of persistent mid epigastric and right upper quadrant abdominal pain which is mostly postprandial. Ultrasound of the abdomen and pelvis was consistent with cholelithiasis. Based on this information we recommended laparoscopic cholecystectomy. Risks and complications of the surgery were discussed with the patient in advance particularly the possibility of conversion to an open surgery, bleeding, infection, obstruction, deep vein thrombosis or pulmonary embolism, bile leak or major bile duct injury that may require surgical intervention. The patient understood the risks and was in agreement with the plan. PROCEDURE: After informed consent was obtained by the patient, the patient was transferred to the Operating Room and was placed in the supine position. The patient was given preoperative antibiotics and after successful induction of general anesthesia a Angela catheter and pneumatic compression devices were placed. The patient was then prepped and draped in the usual sterile manner and abdominal access was established with the Ana Cristina technique. The abdomen was insufflated with C02 to a pressure of 15 mmHg. A 5 mm Versi-step port was placed, slightly to the right and superior from the umbilicus. The 5 mm camera was introduced. We inspected the area where the port had been placed and there was no injury. The patient was then placed initially in a steep reverse Trendelenburg position and three additional ports were placed, specifically a 12 mm Versi-step port just to the right ofthe midline below the xiphoid process and two 5 mm Versi-step ports at the right upper quadrant and right flank. At that point the patient was placed in a steep reverse Trendelenburg position tilted to the left side. The gallbladder was retracted cephalad and laterally. She had significant left hepatomegaly limiting exposure to the triangle of Calot. As a result, an additional 5mm Versi- Step port was placed at the left flank and Mediflex system with the Pretzel liver retractor was used to retract the left liver lobe. There were adhesions between the omentum and the gallbladder wall that were taken down. The peritoneal attachments of the gallbladder at the triangle of Calot posteriorly and anteriorly were taken down. The cystic duct and artery were both seen. They werecompletely dissected free, skeletonized all the way to the infundibulum of the gallbladder . In a similar fashion we also cleaned the liver bed just behind the cystic artery to make sure there was no additional structures in this area. Once we confirmed that both structures were entering into the gallbladder and there were no other structures in the area, they were both clipped with two clips proximally, one distally and were cut in-between. We then using the electrocautery we slowly took down the gallbladder from the liver bed. Small areas of bleeding from the liver parenchyma were controlled with the cautery. After the gallbladder was completely detached from the liver bed, it was placed in an EndoCatch bag and was removed without difficulty from the xiphoid port. We then inspected the clips at the cystic duct and artery and were both in place. There was no active bleeding from the liver bed. At that point the patient was placed in supine position, we deflated the abdomen and we removed all ports under direct vision and no bleeding was noted from any of the port sites. The fascia of the 12 mm port was closed using a #1 Polysorb suture. 60cc 0.5% Marcaine and 1% Lidocaine plain were used to infiltrate the fascial closure as well as all skin incisions. The wounds were irrigated with saline mixed with antibiotic solution and then the skin was closed with 4-0 Monocryl subcuticular sutures antibiotic-coated. Steri-strips and OpSites were used to cover all incisions. The patient extubated and was transferred in stable condition to the Recovery Room for further care. I was present and performed all steps of the procedure. Ms Carranza was the waiter/waitress first class and Ms. Mai the second sales assistant. There were no residents to assist with this case. Hermes Farfan M.D., Ph.D., F.A.C.S. Surgeon: Hermes Farfan MD Anesthesia: GETA, local and other (TAP block ) Was an Student Success Advisor used for this Procedure?: No Student Success Advisor: Alejandra Carranza Estimated blood loss (mL): 10 IV fluids (mL): 650 Urine output (mL): 0 (No Angela to record output) Pathology: other (Gallbladder) Condition: stable Disposition: PACU
== END 2025-07-17 17:21 | disposition home or self-care (01) ==
PROVIDERS: PCP Physician Assistant Medical; Visit Provider Surgery
PROC: 0FT44ZZ Resection of Gallbladder, Percutaneous Endoscopic Approach (ICD-10-PCS; CPT 47562; principal; 2025-07-17 14:10)
DX: K80.10 Calculus of gallbladder with chronic cholecystitis without obstruction (principal); K82.8 Other specified diseases of gallbladder; Z98.84 Bariatric surgery status; R16.0 Hepatomegaly, not elsewhere classified; K76.0 Fatty (change of) liver, not elsewhere classified; K58.9 Irritable bowel syndrome, unspecified; J45.909 Unspecified asthma, uncomplicated; G47.33 Obstructive sleep apnea (adult) (pediatric); G24.3 Spasmodic torticollis; M19.90 Unspecified osteoarthritis, unspecified site; M54.9 Dorsalgia, unspecified; J38.01 Paralysis of vocal cords and larynx, unilateral; F33.9 Major depressive disorder, recurrent, unspecified; F41.9 Anxiety disorder, unspecified; Z79.899 Other long term (current) drug therapy; Z99.89 Dependence on other enabling machines and devices; Z88.8 Allergy status to other drugs, medicaments and biological substances
CPT/HCPCS: 47562; 86850; 86900; 86901; 88304; C9145; J0131; J0690; J1100; J1171; J2003; J2250; J2405; J2704; J2795; J3010

== ENCOUNTER → 2025-07-17 10:51 | Outpatient (BNV) | payer MEDICARE, MEDICAID, SELFPAY | PROVIDERS: PCP Physician Assistant Medical; Visit Provider Surgery | DX: K80.20 Calculus of gallbladder without cholecystitis without obstruction (principal); R10.11 Right upper quadrant pain; R10.13 Epigastric pain | CPT/HCPCS: 47562 ==

== ENCOUNTER 2025-07-23 08:31 | Outpatient (AMB) | payer MEDICARE, MEDICAID, SELFPAY ==
--- NOTE | 2025-07-23 08:36 | MHC.OFFVISWM ---
VS Expanded 07/23/25 09:07 BP 98/63 Blood Pressure Location Rt brachial Blood Pressure Position Sitting Pulse 77 Pulse Source Pulse Oximeter Temp 97.9 F Temperature Source Temporal Artery Scan Pulse Oximetry 99 Oxygen Delivery Method Room Air Height 5 ft 4 in Weight 97 lb 9.6 oz BMI 16.8 Body Fat % 15.4 Body Fat Mass 15.0 Fat Free Mass 82.4 Visceral Fat Rating 0 Body Water % 59.5 Body Water Mass 58.0 Muscle Mass/Score 78.2 Basal Metabolic Rate/Score 1,088 Intake Visit Reasons: (OV) s/p Lap Gail 07/17/25 Allergies duloxetine (From Cymbalta) Adverse Reaction (Intermediate, Verified 07/23/25 08:45) Gastrointestinal Upset oxycodone (From Percocet) Adverse Reaction (Intermediate, Verified 07/23/25 08:45) Vomiting venlafaxine (From Effexor) Adverse Reaction (Verified 07/23/25 08:45) Gastrointestinal Upset Medication List - Last Reconciled 07/23/25 by Christelle Mai CNP albuterol sulfate 90 mcg/actuation (Ventolin HFA) 1 inh inhalation QID PRN onabotulinumtoxinA (Botox) 200 units IM ONCE ondansetron 4 mg PO Q12H vitamin A palmitate 10,000 units PO DAILY HPI Comments Details: 60 year old woman s/p lap gail 07/17/2025. Presents for 1 week post op visit. s/p LSG on?04/10/2024. When starting the program January 2025, she weighed 218 lbs. She has continued losing weight, and is now 97.6 lbs with a BMI of 16.7. No complaints of nausea, emesis, abdominal pain or reflux, or constipation. Prior to surgery due to cholelithiasis, patient's meal plan was liquid only. 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 Previously on 1900 calories/day. Elena and Dr. Soto recommended calorie increase, goal of 2200 calories/day, but she does not think she has reached this yet. She wants to weigh at least 110-115 lbs so she can donate blood. Her goal is 136 lbs, and states she felt best at that weight. Will be seeing visual education director in August due to pericardial effusion noted on imaging taken in May and June. She is the Primary caregiver for her disabled son and disabled sister. Plans to see physical therapy for deconditioning and strengthening. Current meal plan: 8am: bar 11am: snack ([place] yogurt, 1/2 apple with peanut butter, or [employer] packs nuts/cheese/raisins) 1pm: lunch (chicken with veggies, or turkey/provolone wraps) 3pm: snack 6pm: dinner (chicken with salad) 8pm: bar Exercise routine: nothing specific primary caregiver for family [facility] Medical History Cholelithiasis Obesity Torticollis Spasmodic torticollis History of tremor IBS (irritable bowel syndrome) Fatty liver Vocal cord dysfunction Unilateral vocal cord paralysis DJD (degenerative joint disease) Arthritis Back pain Seasonal depression Anxiety DJD (degenerative joint disease) Asthma Sleep apnea treated with continuous positive airway pressure (CPAP) Surgical History (Updated 07/23/25 @ 08:59 by Christelle Mai CNP) Hx of cholecystectomy Hx of hand surgery S/P laparoscopic sleeve gastrectomy History of esophagogastroduodenoscopy (EGD) (02/14/24) Hx of umbilical hernia repair Hx of rotator cuff surgery Hx of colonoscopy Hx of oral surgery Family History Mother Breast CA Father FH: prostate cancer Social History Household Members: Children and Other Household Members Other:: sister, son takes care of both Housing: House 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 a significant other at home: Yes (sister w/dementia and son w/ autism-aunt will help post-op) Do you presently have visiting nurse or other home services: No Alcohol intake: never Patient Tobacco Use Status: Never used Tobacco service: No Physical Exam Vital Signs: Last Vital Signs Temp 97.9 F 07/23/25 09:07 Pulse 77 07/23/25 09:07 BP 98/63 07/23/25 09:07 Pulse Ox 99 07/23/25 09:07 Oxygen Delivery Method Room Air 07/23/25 09:07 BMI result Body Mass Index 16.8 Const General: cooperative, comfortable and no acute distress Orientation/consciousness: patient oriented x3 GI Other: Abdomen is flat soft non-tender non-distended. 5 total lap sites, 2 with steri strips, CDI. 3 lap sites without steri's which fell off in shower today. New steri's applied. No surrounding erythema or drainage or S&S of infection. Neuro General: patient oriented x3 Assessment & Plan Assessment & Plan (1) S/P laparoscopic cholecystectomy: Code(s): Z90.49 - Acquired absence of other specified parts of digestive tract Category: Surgical Plan: Plan: - May shower but no bath or submersion of abdomen in water until healed. - Reviewed S&S of infection, incisional care - No abdominal exercises x 6 weeks. Plans to see physical therapy for deconditioning and muscle strengthening - Continue meal plan per Dr. Greenwood. Goal to increase weight - Pre-op calcium, albumin, and BUN were elevated which could indicate dehydration, especially given cholelithiasis and meal plan. Will order some more blood work to further evaluate the elevated Calcium and weight loss. Follow up: 3 weeks for 1 month post op and weight check (2) S/P laparoscopic sleeve gastrectomy: Code(s): Z98.84 - Bariatric surgery status Category: Surgical Plan: . Orders: Orders CA-125 Today Z90.49 - Acquired absence of other specified parts of digestive tract, Z98.84 - Bariatric surgery status Calcium, Ionized Today Z90.49 - Acquired absence of other specified parts of digestive tract, Z98.84 - Bariatric surgery status Parathyroid Hormone Intact Today Z90.49 - Acquired absence of other specified parts of digestive tract, Z98.84 - Bariatric surgery status TSH reflex Free T4 Today Z90.49 - Acquired absence of other specified parts of digestive tract, Z98.84 - Bariatric surgery status
[2025-07-23 09:07] VITALS: BP 98/63; PULSE 77; TEMP 36.6; O2SAT 99; BMI 16.8
== END 2025-07-23 09:45 | disposition home or self-care (01) ==
LOC: HO.HBS 08:31
PROVIDERS: PCP Physician Assistant Medical; Visit Provider Nurse Practitioner
DX: Z90.49 Acquired absence of other specified parts of digestive tract (principal); Z98.84 Bariatric surgery status
CPT/HCPCS: 99024

== ENCOUNTER → 2025-07-23 08:31 | Outpatient (BNVA) | payer MEDICARE, MEDICAID, SELFPAY | PROVIDERS: PCP Physician Assistant Medical; Visit Provider Nurse Practitioner | DX: Z98.84 Bariatric surgery status (principal); Z90.49 Acquired absence of other specified parts of digestive tract | CPT/HCPCS: 99212 ==

== ENCOUNTER 2025-07-29 13:33 | Outpatient (AMB) | payer MEDICARE, MEDICAID, SELFPAY ==
--- NOTE | 2025-07-29 13:45 | A.OFFVIS_ITS ---
Vital Signs 07/29/25 13:46 Height 5 ft Weight 102 lb 4.712 oz BMI 20.0 BP 102/60 Blood Pressure Location Lt brachial Position Sitting Pulse 77 Pulse Source Pulse Oximeter Intake Visit Reasons: [id number] up It Desktop Support Technician Required: No Accompanied by: Self / Same As Patient Allergies duloxetine (From Cymbalta) Adverse Reaction (Intermediate, Verified 07/29/25 13:50) Gastrointestinal Upset oxycodone (From Percocet) Adverse Reaction (Intermediate, Verified 07/29/25 13:50) Vomiting venlafaxine (From Effexor) Adverse Reaction (Verified 07/29/25 13:50) Gastrointestinal Upset Medication List - Last Reconciled 07/29/25 by Curt Rincon NP albuterol sulfate 90 mcg/actuation (Ventolin HFA) 1 inh inhalation QID PRN onabotulinumtoxinA (Botox) 200 units IM ONCE vitamin A palmitate 10,000 units PO DAILY HPI Comments Details: This is a 60-year-old female patient coming in for a hospital discharge follow- up. Patient with a history of obesity and hypertension who had undergone gastric sleeve surgery in 2023, has lost about 130 lb. Patient was in the hospital recently for abdominal pain where patient underwent imaging incidentally showing pericardial effusion that led to an echocardiogram where it was noted that patient had moderate to large size pericardial effusion near right-sided chambers with some IVC plethora without any signs of tamponade. Patient subsequently underwent a chest CTA that showed mild coronary calcifications with only small pericardial effusion and therefore did not undergo pericardiocentesis. Patient recently underwent a limited echocardiogram that showed moderate pericardial effusion. Patient continues to deny any cardiac symptoms of exertional chest pain, shortness of breath, palpitations, dizziness, orthopnea, PND, leg edema, presyncope or syncope. [facility] Medical History Cholelithiasis Obesity Torticollis Spasmodic torticollis History of tremor IBS (irritable bowel syndrome) Fatty liver Vocal cord dysfunction Unilateral vocal cord paralysis DJD (degenerative joint disease) Arthritis Back pain Seasonal depression Anxiety DJD (degenerative joint disease) Asthma Sleep apnea treated with continuous positive airway pressure (CPAP) Surgical History Hx of cholecystectomy Hx of hand surgery S/P laparoscopic sleeve gastrectomy History of esophagogastroduodenoscopy (EGD) (02/14/24) Hx of umbilical hernia repair Hx of rotator cuff surgery Hx of colonoscopy Hx of oral surgery Family History Mother Breast CA Father FH: prostate cancer Social History Household Members: Children and Other Household Members Other:: sister, son takes care of both Housing: House 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 other at home: Yes (sister w/dementia and son w/ autism-aunt will help post-op) Do you presently have visiting nurse or other home services: No Alcohol intake: never Patient Tobacco Use Status: Never used Tobacco service: No Review of Systems Const Denies daytime sleepiness, Denies difficulty sleeping, Denies snoring, Denies stops breathing during sleep and Denies weakness Card Denies chest pain, Denies rapid heart rate, Denies irregular heart rhythm, Denies claudication, Denies leg edema, Denies lightheadedness, Denies palpitations, Denies dyspnea, Denies dyspnea on exertion, Denies orthopnea, Denies paroxysmal nocturnal dyspnea and Denies slow heart rate Resp Denies cough, Denies dyspnea, Denies dyspnea on exertion and Denies snoring GI Reports no additional complaints, Denies hematochezia, Denies change in stool character and Denies dyspepsia Musc Denies abnormal gait, Denies muscle weakness and Denies numbness Neuro Denies abnormal gait, Denies numbness and Denies weakness Endo Denies palpitations Physical Exam Vital Signs: Last Vital Signs Pulse 77 07/29/25 13:46 BP 102/60 07/29/25 13:46 BMI result Body Mass Index 20.0 Const General: cooperative, healthy appearing, comfortable and no acute distress Orientation/consciousness: patient oriented x3 HEENT Head: Yes normal to inspection Neck Neck: Yes normal visual inspection, Yes trachea midline and Yes supple Chest Chest palpation & inspection: normal inspection of the chest Resp Effort & Inspection: normal respiratory effort Auscultation: clear to auscultation bilaterally, no crackles, no rales, no rhonchi and no wheezes Cardio Jugular venous distension: no JVD Palpation: normal PMI Rate: regular rate Rhythm: regular rhythm Heart sounds: S1 normal heart sound present, S2 normal heart sound present, no click, no gallops, no murmurs and no rubs Peripheral pulses: Peripheral pulses 2+ throughout GI Inspection: Yes normal to inspection Palpation (GI): Soft to palpation Auscultation: normal bowel sounds Skin General skin exam: no rashes or lesions noted Neuro General: patient oriented x3 Extrem General: Yes normal to inspection, No no pedal edema and No calf tenderness Psych Appearance: grossly normal Mental Status: mental status grossly normal Speech and movement: Normal speech and movement present Assessment & Plan Assessment & Plan (1) Pericardial effusion: Code(s): I31.39 - Other pericardial effusion (noninflammatory) Category: Medical (2) Hospital discharge follow-up: Code(s): Z51.89 - Encounter for other specified aftercare Plan Patient was recently in the hospital for abdominal pain where imaging incidentally showed pericardial effusion and wanted an echocardiogram. The echo showed moderate to large size pericardial effusion near the right sided chambers without cardiac tamponade. Patient subsequently underwent a chest CTA that showed small pericardial effusion and therefore did not undergo a pericardiocentesis as deemed unsafe by IR. 07/15/2025-patient underwent a limited echocardiogram that showed normal LV systolic function with an ejection fraction between 60-65% with moderate loculated pericardial effusion overlying the right ventricle. Given stable status of the pericardial effusion and without any cardiac symptoms, we will plan to repeat a limited echo in 3 months. If patient's pericardial effusion gets larger then plan is for further diagnostic workup. Reviewed with Dr. Armenta. Advised on heart healthy diet, adequate hydration, and management of vascular risk factors. Follow up in 6 months, sooner if needed. In the interim, patient will call the office with any concerns or change in symptoms. This note was generated using voice recognition software. While every effort has been made to ensure accuracy and proper health sanitarian, there may be occasional errors that could affect the content or meaning of the described symptoms. Orders: Orders CA Echo Limited 3 Months I31.39 - Other pericardial effusion (noninflammatory) Coding Level of Care Code Est Pt Level 4 (74361) Add On Problem Visit Only Diagnoses Pericardial effusion I31.39 Hospital discharge follow-up Z51.89 Time Spent (min) 31 Comment Time spent in reviewing the chart, test results, assessment, counseling and documentation.
[2025-07-29 13:46] VITALS: BP 102/60; PULSE 77
== END 2025-07-29 14:19 | disposition home or self-care (01) ==
LOC: HO.HCS 13:34
PROVIDERS: PCP Physician Assistant Medical
DX: I31.39 Other pericardial effusion (noninflammatory) (principal); Z51.89 Encounter for other specified aftercare
CPT/HCPCS: 99214; G2211

== ENCOUNTER → 2025-07-29 13:33 | Outpatient (BNVA) | payer MEDICARE, MEDICAID, SELFPAY | PROVIDERS: PCP Physician Assistant Medical | DX: Z09 Encounter for follow-up examination after completed treatment for conditions other than malignant neoplasm (principal); I31.39 Other pericardial effusion (noninflammatory) | CPT/HCPCS: 99212 ==